=== PATIENT | female | born 1945 | race Caucasian/White ===

== ENCOUNTER → 2017-08-21 16:40 | Outpatient (CLI) | payer MEDICARE, OTHER, SELFPAY ==
[2017-08-08 13:12] VITALS: BP 138/70; BMI 26.5
--- NOTE | 2017-08-21 16:49 | CT_ITS ---
STUDY: CT ABDOMEN AND PELVIS WITH CONTRAST REASON FOR EXAM: Female, 71 years old. Left lower quadrant pain and diarrhea. The patient has a history of breast cancer. RADIATION DOSAGE (If Supplied By Facility): CTDIvol = ( 15.06 ) mGy, DLP = ( 905.72 ) mGycm TECHNIQUE: Transaxial images were obtained from the dome of the diaphragm to the symphysis pubis with oral contrast. 100ML ml of Isovue 300 contrast was administered. Sagittal and coronal images were reconstructed. Individualized dose optimization techniques were used for this CT. COMPARISON: None. FINDINGS: Minimal increased markings in the right middle lobe suggestive of scarring. 1 cm bulla is seen in the right middle lobe. The visualized portions of the heart are within normal limits. Minimally dilated intrahepatic biliary ducts. I suspect tiny gallstones along the dependent portion of the gallbladder lumen. Correlation with ultrasound is recommended. Normal gallbladder and extrahepatic biliary system. Normal spleen. Normal pancreas. Normal bilateral adrenal glands. Normal right kidney. Normal left kidney. There is a small hiatal hernia. Normal small intestine. There are multiple colonic diverticula consistent with diverticulosis. The appendix is visualized and appears normal. Normal abdominal aorta. Normal inferior vena cava. Normal retroperitoneum. Normal urinary bladder. Normal abdominal wall. Inhomogeneous appearance of several lumbar vertebrae. Questionable tiny lucencies in the iliac bones bilaterally. Correlation with a bone scan is recommended. CT/Abdomen/Pelvis WITH Contrast IMPRESSION: Questionable tiny gallstones. Sigmoid diverticulosis. Inhomogeneous appearance of the lumbar vertebrae as well as the iliac bones. Correlation with a bone scan is recommended. Electronically Signed: Alexandre Simeon MD at 12:43 EST Tel [phone], Service support ,
== END ==
PROVIDERS: Family Provider Family Medicine; PCP Family Medicine; Visit Provider Nurse Practitioner Family
DX: R10.32 Left lower quadrant pain (principal); R19.7 Diarrhea, unspecified; Z85.3 Personal history of malignant neoplasm of breast
CPT/HCPCS: 74177; Q9967

== ENCOUNTER → 2017-08-29 08:27 | Outpatient (CLI) | payer MEDICARE, OTHER, SELFPAY ==
--- NOTE | 2017-08-29 08:29 | NM_ITS ---
CLINICAL: 71-year-old female with reported history of carcinoma of the breast. WHOLE BODY 99m Tc MDP RADIONUCLIDE BONE SCINTIGRAPHY COMPARISON: None available FINDINGS: Following the intravenous administration of 26.2 mCi of 99m Tc MDP, whole body bone images reveal: 1. Increased radiopharmaceutical concentration is identified in the acromioclavicular compartments of both shoulders, the patellofemoral compartments of both knees, medial tibial-femoral compartment of the left knee, dorsal medial compartment of the left ankle, lateral compartments of the right-left ankles, the midfoot bilaterally. 2. The remaining skeletal structures are scintigraphically unremarkable with normal-appearing renal images and urinary bladder activity identified. NM/Bone Scan Whole Body IMPRESSION: 1. The increased radiopharmaceutical concentration identified in the bilateral shoulder and knee articulations, right-left ankles, the midfoot bilaterally is most consistent with degenerative arthritis. 2. There is no definitive typical scintigraphic evidence of skeletal metastatic disease on the current examination. Electronically Signed: Rishabh Max DO at 10:03 EST Tel , Service support ,
== END ==
PROVIDERS: Family Provider Family Medicine; PCP Family Medicine; Visit Provider Internal Medicine Medical Oncology
DX: R93.7 Abnormal findings on diagnostic imaging of other parts of musculoskeletal system (principal)
CPT/HCPCS: 78306

== ENCOUNTER → 2018-06-12 15:35 | Outpatient (CLI) | payer MEDICARE, OTHER, SELFPAY ==
[2018-06-04 09:51] VITALS: BMI 27.7
--- NOTE | 2018-06-12 15:41 | ECHODONC_ITS ---
Reason For Study: DYSPNEA Procedure This was a 2D Doppler, Color Flow transthoracic echocardiogram. Myocardial strain analysis was performed in this exam to aid in the assessment of cardiac function. The exam was of adequate technical quality. Exam performed in department. Left Ventricle Normal LV size. Left ventricular systolic function is normal. The estimated ejection fraction is 60 %. The global longitudinal strain = -21 % (normal). No evidence for diastolic dysfunction. No regional wall motion abnormalities noted. Right Ventricle Normal RV size. Normal systolic function. Atria The left atrium is mildly enlarged. Normal right atrium. No doppler evidence for ASD. Mitral Valve There is no mitral annular calcification. Mild diffuse mitral valve thickening. Mild mitral valve prolapse. Mild-Moderate (1-2+) mitral valve insufficiency. Tricuspid Valve Normal tricuspid valve. Mild tricuspid valve insufficiency. Right ventricular systolic pressure estimated to be 29 mmHg. Aortic Valve Trisinus/trileaflet aortic valve. Normal aortic valve. Trivial aortic valve insufficiency. Pulmonic Valve The pulmonic valve is not well visualized. Mild (1+) pulmonic valve insufficiency. Great Vessels Normal sized aortic root. Pericardium/Pleural No pericardial effusion. MMode/2D Measurements & Calculations LVIDd: 4.9 cm IVSd: 0.81 cm Ao root diam: 3.4 cm LVIDs: 3.3 cm LVPWd: 0.80 cm RVDd: 3.3 cm FS: 32.2 % LAV(MOD-bp): 62.6 ml LA A4 area: 21.9 cm2 LA dimension(2D): 3.8 cm LAV(MOD-bp) Indexed: 31.3 ml/m2 LAV(MOD-sp2): 60.1 ml LAV(MOD-sp4): 63.0 ml RA A4 area: 15.3 cm2 Time Measurements MV dec time: 0.26 sec Doppler Measurements & Calculations MV E max lit: 69.3 cm/sec Lat Peak E' Lit: 9.9 cm/sec Med Peak E' Lit: 5.9 cm/sec MV A max lit: 77.1 cm/sec E/E' lat: 7.0 E/E' med: 11.7 MV E/A: 0.90 Ao V2 max: 159.6 cm/sec LV V1 max: 81.3 cm/sec PA V2 max: 94.8 cm/sec Ao max P.2 mmHg LV V1 max P.6 mmHg TR max lit: 252.8 cm/sec TR max P.8 mmHg Interpretation Summary Left ventricular systolic function is normal. The estimated ejection fraction is 60 %. The global longitudinal strain = -21 % (normal). The left atrium is mildly enlarged. Mild diffuse mitral valve thickening. Mild mitral valve prolapse. Mild-Moderate (1-2+) mitral valve insufficiency. Mild tricuspid valve insufficiency. Trivial aortic valve insufficiency. Mild (1+) pulmonic valve insufficiency. Right ventricular systolic pressure estimated to be 29 mmHg. No evidence for diastolic dysfunction. Ordering Physician: Chela Salgado Referring Physician: MALLORIE GILLIS Performed By: Letty Osuna, JOSÉ MIGUEL, RVT
--- OUTSIDE RECORDS SUMMARY | 2018-07-29 22:58 | XMS RPT_ITS ---
:1945 Author Organization OHIP Support Name Relationship Address Phone DENILSON MOSES Unavailable [address] + [place] [address] R Unavailable Unavailable Unavailable BAHAIDENILSON Unavailable [address] + [place] [address] R Unavailable Unavailable Unavailable DENILSON MOSES Unavailable [address] + [place] [address] R Unavailable Unavailable Unavailable DENILSON MOSES Unavailable [address] + [place] [address] R Unavailable Unavailable Unavailable DENILSON MOSES Unavailable [address] + [place] [address] R Unavailable Unavailable Unavailable DENILSON MOSES Unavailable [address] + [place] [address] R Unavailable Unavailable Unavailable DENILSON MOSES Unavailable [address] + [place] [address] R Unavailable Unavailable Unavailable DENILSON MOSES Unavailable [address] + [place] [address] R Unavailable Unavailable Unavailable DENILSON MOSES Unavailable [address] + [place] [address] R Unavailable Unavailable Unavailable DENILSON MOSES Unavailable [address] + [place] [address] R Unavailable Unavailable Unavailable DENILSON MOSES Unavailable [address] + [place] [address] R Unavailable Unavailable Unavailable DENILSON MOSES Unavailable [address] + [place] [address] R Unavailable Unavailable Unavailable DENILSON MOSES Unavailable [address] + [place] [address] DENILSON MOSES Unavailable [address] + [place] [address] DENILSON MOSES Unavailable [address] + [place] [address] DENILSON MOSES Unavailable [address] + [place] [address] DENILSON MOSES Unavailable [address] + [place] [address] R Unavailable Unavailable Unavailable DENILSON MOSES Unavailable [address] + [place] [address] R Unavailable Unavailable Unavailable DENILSON MOSES Unavailable [address] + [place] [address] R Unavailable Unavailable Unavailable DENILSON MOSES Unavailable [address] + [place] [address] R Unavailable Unavailable Unavailable DENILSON MOSES Unavailable [address] + [place] [address] R Unavailable Unavailable Unavailable DENILSON MOSES Unavailable [address] + [place] [address] R Unavailable Unavailable Unavailable Care Team Providers Name Role Phone CHELA SUAREZ CNP Attending Unavailable KRISTIE DO, SAEID D Primary Care Unavailable KRISTIE DO, SAEID D Attending Unavailable KRISTIE DO, SAEID D Primary Care Unavailable Damian, Chela Attending Unavailable Damian, Chela Referring Unavailable Wann, Saeid Primary Care Unavailable PraEber menjivar Attending Unavailable Prah Eber Referring Unavailable Kristie, Saeid Primary Care Unavailable Phi Hidalgo Attending Unavailable Wann, Saeid Referring Unavailable PraEber menjivar Attending Unavailable Kristie, Saeid Referring Unavailable Wann, Saeid Primary Care Unavailable Eber Conn Consulting Unavailable Damian, Chela Attending Unavailable Kristie, Saeid Referring Unavailable Kristie, Saeid Primary Care Unavailable PraEber menjivar Consulting Unavailable Damian, Chela Attending Unavailable Wann, Saeid Referring Unavailable Wann, Saeid Primary Care Unavailable PraEber menjivar Consulting Unavailable Damian, Chela Attending Unavailable Damian, Chela Referring Unavailable Kristie, Saeid Primary Care Unavailable Damian, Chela Attending Unavailable Wann, Saeid Referring Unavailable Wann, Saeid Primary Care Unavailable PrahEber Consulting Unavailable Phi Hidalgo Attending Unavailable Phi Hidalgo Referring Unavailable Wann, Saeid Primary Care Unavailable Phi Hidalgo Attending Unavailable Phi Hidalgo Referring Unavailable Wann, Saeid Primary Care Unavailable Damian, Chela Attending Unavailable Kristie, Saeid Primary Care Unavailable PraEber menjivar Consulting Unavailable Prah, Eber Attending Unavailable Saeid Flowers Primary Care Unavailable Saeid Flowers Referring Unavailable Josseline Case Attending Unavailable Saeid Flowers Referring Unavailable Janes Sinha Attending Unavailable Damian, Chela Referring Unavailable Lisbeth, Grimes Attending Unavailable Damian, Chela Referring Unavailable EvieJosseline arredondo Attending Unavailable Saeid Flowers Referring Unavailable Prah, Eber Attending Unavailable Kristie, Saeid Primary Care Unavailable Senia, Eber Consulting Unavailable Damian, Chela Attending Unavailable Damian, Chela Referring Unavailable Kristie, Saeid Primary Care Unavailable PROBLEMS PROBLEMS DATE TYPE CONDITION / CODE ATTENDING STATUS SOURCE 07/10/2018 Unknown R06.09 - Other forms Phi Hidalgo Active [facility] of dyspnea / Community R06.09(ICD-10) Hospital Repository 07/10/2018 Unknown I34.0 - Nonrheumatic Phi Hidalgo Active [facility] mitral (valve) Community insufficiency / Hospital I34.0(ICD-10) Repository 07/10/2018 Unknown I36.1 - Nonrheumatic Phi Hidalgo Active [facility] tricuspid (valve) Community insufficiency / Hospital I36.1(ICD-10) Repository 07/10/2018 Unknown I37.1 - Nonrheumatic [place] Active [facility] pulmonary valve [facility] insufficiency / Hospital I37.1(ICD-10) Repository 07/10/2018 Unknown R93.1 - Abnormal Phi Hidalgo Active [facility] findings on diagnostic [facility] imaging of heart and Hospital coronary circulation / Repository R93.1(ICD-10) 07/10/2018 Unknown E78.5 - Phi Hidalgo Active [facility] Hyperlipidemia, Community unspecified / Hospital E78.5(ICD-10) Repository 06/18/2018 Unknown C50.411 - Malignant Damian, Active [facility] neoplasm of [place] Community upper-outer quadrant Hospital of right female breast Repository / C50.411(ICD-10) 06/25/2018 Unknown R00.1 - Bradycardia, Lisbeth, Grimes Active [facility] unspecified / Community R00.1(ICD-10) Hospital Repository 06/25/2018 Unknown R94.31 - Abnormal Ilsbeth, Felix Active [facility] electrocardiogram Community [ECG] [EKG] / Hospital R94.31(ICD-10) Repository 07/04/2018 Unknown Z79.899 - Other long [place], Active [facility] term (current) drug Janes Community therapy / Hospital Z79.899(ICD-10) Repository 06/04/2018 Unknown C50.412 - Malignant Damian, Active [facility] neoplasm of [facility] upper-outer quadrant Hospital of left female breast Repository / C50.412(ICD-10) 06/04/2018 Unknown Z17.0 - Estrogen Damian, Active [facility] receptor positive [facility] status [ER+] / Hospital Z17.0(ICD-10) Repository 06/04/2018 Unknown M85.80 - Other Damian, Active [facility] specified disorders of [facility] bone density and Hospital structure, unspecified Repository site / M85.80(ICD-10) 03/13/2018 Unknown Z85.3 - Personal Damian, Active [facility] history of malignant [facility] neoplasm of breast / Hospital Z85.3(ICD-10) Repository 03/13/2018 Unknown Z12.31 - Encounter for Damian, Active [facility] screening mammogram [facility] for malignant neoplasm Hospital of breast / Repository Z12.31(ICD-10) 03/13/2018 Unknown Z13.820 - Encounter Damian, Active [facility] for screening for [facility] osteoporosis / Hospital Z13.820(ICD-10) Repository 08/21/2017 Unknown R10.32 - Left lower Damian, Active [facility] quadrant pain / [place] Community R10.32(ICD-10) Hospital Repository 08/21/2017 Unknown R19.7 - Diarrhea, Damian, Active [facility] unspecified / [place] Community R19.7(ICD-10) Hospital Repository 08/08/2017 Unknown 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 [address] [place] [address] OFFICE VISIT Date of Service: 07/10/18 MR#: [id number] Acct: [id number] Name: FABI MOSES Rep #: [id number] : 1945 Provider: Phi Hidalgo MD Age/Sex: 72/F Location: [facility] Status: Signed HPI [facility] Chief Complaint: Review EKG and echo Details: FABI MOSES, is a 72 F who presents to the office today for Intake Vital Signs07/10/18 Body Mass Index (BMI) 27.8 07/10/18 Height 5 ft 8.5 in 07/10/18 Weight: 185 lb 07/10/18 Body Mass Index (BMI) 27.7 07/10/18 Blood Pressure 122/70 H 07/10/18 Blood Pressure Location Lt brachial Intake Visit Reasons: AYALA, ABN EKG AND ECHO ([facility]) Computer Architect Required: No Accompanied by: Is patient in pain?: No Allergies No Known Allergies Allergy (Verified 07/10/18 14:04) Medications Atorvastatin Calcium [Lipitor] 10 mg PO QHS 02/13/15 [History Confirmed 07/10/18] Aspirin 81 mg PO DAILY 09/26/16 [History Confirmed 07/10/18] Cod Liver Oil 5 ml PO DAILY 09/26/16 [History Confirmed 07/10/18] Anastrozole [Arimidex] 1 mg PO DAILY #90 tab 08/08/17 [Rx Confirmed 07/10/18] Multivit-Min/Iron/Folic/Lutein [Centrum Silver Women Tablet] 1 ea PO DAILY 08/08/17 [History Confirmed 07/10/18] halcinonide-emollient 0.1 % topical cream % TOPICAL 06/21/18 [History Confirmed 07/10/18] [facility] Medical History Hyperlipidemia (Chronic) Nonrheumatic tricuspid (valve) insufficiency (Chronic) Pulmonic valve insufficiency (Chronic) Nonrheumatic mitral (valve) insufficiency (Chronic) History of right breast cancer (Chronic) Exertional dyspnea (Acute) Abnormal echocardiogram (Acute) Personal history of malignant neoplasm of breast (Chronic) 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, estrogen receptor positive (Chronic) Hyperlipidemia (Acute) Psoriasis (Acute) Surgical History History of lumpectomy of right breast (Acute 2014) History of tonsillectomy (Acute) Family History Father Heart disease Sister Hypertension Social History number of children: 1 current occupational status: unemployed Smoking Status: Never smoker alcohol intake: current alcohol intake frequency: holidays/special occasions only substance use type: does not use seatbelt use: always do you feel safe at home: Yes 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 Conn); negative for fatigue, weakness, body ache, fever(s), headache(s), chills, frequent falls, night sweats, daytime sleepiness, difficulty sleeping, excessive sweating, weight gain, weight loss, increased appetite, poor appetite or anorexia Eyes Eyes: Negative for blind spots, loss of peripheral vision, transient loss of vision, blurry vision, change in vision, double vision, floaters, tunnel vision or other ENT ENT: Negative for headache(s), dizziness, hearing loss, tinnitus, Nosebleed/epistaxis, balance problems, post nasal drip, lip swelling, tongue swelling, bleeding gums, hoarseness, neck pain, dry mouth or other Cardio Chest Pain: Yes (Mid shoulder blade pain, dull ache. Not related to activity. Comes and goes) Frequency: other (varies, a couple days in a row to once a week.) Character: dull Onset: other (spontaneous) Location: other (middle of your back) Duration: hours Exacerbation: other (spontaneous) Relieving: other (spontaneous) Recurrence: other (spontaneous) Palpitations: Yes (hx of afib, does feel occasional skipping) feels like its: skipping Edema: None Muscle aches with walking: None Resp Respiratory: Positive for SOB with activity and Cough (dry cough); negative for SOB at rest, SOB orthopnea\SOB lying down, Coughing up blood/hemoptysis, chest congestion, pain on inspiration, snoring, stridor, wheezing, crackles, paroxysmal nocturnal dyspnea or other GI GI: Negative nausea, vomiting, heartburn, constipation, belching, bloating, cramping, vomiting blood/hematemesis, bright, red blood in stools, black,tarry stools, loose stools, Difficulty Swallowing or other : Negative for hematuria, frequent nighttime urination/ nocturia, erectile dysfunction or abnormal vaginal bleeding Musc Musc: Negative for balance problems, muscle aches/ myalgia, muscle weakness or joint pain Skin Skin: Negative redness, non-healing lesions, rash, unusual bruising, skin ulcer, wounds, jaundice or other Neuro Neuro: Negative for weakness, headache(s), frequent falls, blurry vision, double vision, dizziness, lightheadedness, near syncope, syncope, orthostatic symptoms, confusion, memory loss, restless legs, vertigo, seizures, lack of coordination or other Shane Hematologic/Lymphatic: Negative for easy bleeding, easy bruising, enlarged lymph nodes or other Endo Endo: Negative for fatigue, excessive sweating, cold intolerance, heat intolerance, flushing, increased thirst/drinking, increased hunger, hair loss, hair growth or other Psych Psych: Negative for anxiety, depression, thoughts of harming anyone, thoughts of harming yourself, visual hallucinations, panic attacks or audible hallucinations Allergy Allergy/Immunology: Negative for lip swelling, Negative for tongue swelling, Negative for rash, Negative for throat swelling, Negative for hives Assessment AND Plan Orders Orders: Plan Detail Follow Up +6M (Rocky) Coding Level of Care Code Off vis,new,level 4 Coding Level of Care Code Off vis,new,level 4 Supplemental Info Supplemental Information Labs LDL Cholesterol 87 mg/dL (0-130) 07/11/18 HDL Cholesterol 67 mg/dL (40-) 07/11/18 Triglycerides 104 mg/dL (-199) 07/11/18 VLDL Cholesterol 21 mg/dL (5-40) 07/11/18 Diagnostics Electrocardiogram 06/14/18 Echocardiogram 06/12/18 07/13/18 1500 <Electronically signed by Phi Hidalgo MD> Date Phi Hidalgo MD [facility] Signature: Date (if applicable) CC: Saeid Flowers DO LIVER PROFILE Collected: 07/11/2018 Status: F Source: [facility] 9:12 AM [facility] REPOSITORY TYPE CODE TESTS RESULT OUT OF RANGE REFERENCE UNITS LAB L501.1500 6.4-8.2 g/dL Normal T PROT 7.4 LAB L501.1800 3.2-5.0 g/dL Normal ALB 3.8 LAB L501.1950 2.2-4.2 g/dL Normal GLOB 3.6 LAB L501.4100 15-37 U/L Normal AST 17 LAB L501.4305 45-117 U/L Normal ALK P 76 LAB L501.4405 13-56 U/L Normal ALT 20 LAB L501.4600 0.20-1.00 mg/dL Normal T BILI 0.50 LAB L501.4700 0.00-0.30 mg/dL Normal D BILI 0.15 Performed By: #### L500.3400, L500.4100 #### [facility] [address] [place], [place], [id number] LIPID PROFILE Collected: 07/11/2018 Status: F Source: [facility] 9:12 AM [facility] REPOSITORY TYPE CODE TESTS RESULT OUT OF RANGE REFERENCE UNITS LAB L501.4900 200 mg/dL Normal CHOL 175 Result Comment: <200 mg/dL Desirable 200-240 mg/dL Borderline >240 mg/dL High Risk LAB L501.5000 mg/dL Normal TRIG 104 Result Comment: The drugs N-Acetylcysteine and Metamizole may falsely depress this assay. Serum Triglycerides Reference Interval Normal <150 mg/dL Borderline high 150 - 199 mg/dL High 200 - 499 mg/dL Very High > or = 500 mg/dL LAB L501.6400 mg/dL Normal HDL 67 Result Comment: The drugs N-Acetylcysteine and Metamizole may falsely depress this assay. Reference Range HDL <40 mg/dL Low HDL Cholesterol HDL >or= 60 mg/dL High HDL Cholesterol LAB L501.6500 0-130 mg/dL Normal LDL 87 LAB L501.6600 5-40 mg/dL Normal VLDL 21 Performed By: #### L500.3400, L500.4100 #### [facility] [address] [place], [place], [id number] CARDIOLOGY VISIT Observed: 07/10/2018 Status: F Source: [facility] 2[facility] PM [facility] [address] [place] [address] OFFICE VISIT Date of Service: 07/10/18 MR#: [id number] Acct: [id number] Name: FABI MOSES Rep #: [id number] : 1945 Provider: Phi Hidalgo MD Age/Sex: 72/F Location: [facility] Status: Signed HPI HPI Chief Complaint: Review EKG and echo Details: FABI MOSES, is a 72 F with a history of hyperlipidemia, non-smoker lifelong, mitral valve prolapse with subsequent mitral regurgitation, status post right-sided breast cancer in 2015 status post lumpectomy in 2014 followed by chemotherapy and x-ray therapy in 2016. She is a lifelong nondiabetic, and no previous catheterization. She has a sister with hypertension, but no other siblings with coronary disease. After her chemotherapy in 2016, the patient noted progressively worsening dyspnea on exertion and shortness of breath. She is to be able to exercise without difficulty and now has difficulty walking 2 flights of stairs. She denies any associated chest pain, angina, lightheadedness or dizziness. On 06/12/18 the patient underwent a 2D echo with Doppler which demonstrated normal LV size and function with an EF of 60%, mild mitral valve prolapse with mild to moderate mitral regurgitation and RVSP of approximately 34 mmHg. Her most recent stress/MPI took place on in which she went 9 minutes 30 seconds and had no evidence of ischemia by nuclear imaging. In addition she has a history of paroxysmal atrial fibrillation but is not on anticoagulation therapy. She cannot recall many times a month she develops palpitations but appears to be caffeine sensitive. In our office today her blood pressure is 122/70, pulse is 60 and regular. Her physical exam demonstrates clear lungs bilaterally, regular rate and rhythm, normal S2, no S3 or S4, with 2/6 holosystolic murmur best heard in the lower left sternal border. No diastolic murmurs noted. EKG dated 06/14/18 shows sinus bradycardia, left anterior hemiblock, low voltage throughout the precordium. Intake Vital Signs07/10/18 Height 5 ft 8.5 in 07/10/18 Weight: 185 lb 07/10/18 Body Mass Index (BMI) 27.7 07/10/18 Blood Pressure 122/70 H 07/10/18 Blood Pressure Location Lt brachial Intake Visit Reasons: AYALA, ABN EKG AND ECHO ([facility]) Allergies No Known Allergies Allergy (Verified 07/10/18 14:04) Medications Atorvastatin Calcium [Lipitor] 10 mg PO QHS 02/13/15 [History Confirmed 07/10/18] Aspirin 81 mg PO DAILY 09/26/16 [History Confirmed 07/10/18] Cod Liver Oil 5 ml PO DAILY 09/26/16 [History Confirmed 07/10/18] Anastrozole [Arimidex] 1 mg PO DAILY #90 tab 08/08/17 [Rx Confirmed 07/10/18] Multivit-Min/Iron/Folic/Lutein [Centrum Silver Women Tablet] 1 ea PO DAILY 08/08/17 [History Confirmed 07/10/18] halcinonide-emollient 0.1 % topical cream % TOPICAL 06/21/18 [History Confirmed 07/10/18] PFS Medical History Hyperlipidemia (Chronic) Nonrheumatic tricuspid (valve) insufficiency (Chronic) Pulmonic valve insufficiency (Chronic) Nonrheumatic mitral (valve) insufficiency (Chronic) History of right breast cancer (Chronic) Exertional dyspnea (Acute) Abnormal echocardiogram (Acute) Personal history of malignant neoplasm of breast (Chronic) 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, estrogen receptor positive (Chronic) Hyperlipidemia (Acute) Psoriasis (Acute) Surgical History History of lumpectomy of right breast (Acute 2014) History of tonsillectomy (Acute) Family History Father Heart disease Sister Hypertension Social History number of children: 1 current occupational status: unemployed Smoking Status: Never smoker alcohol intake: current alcohol intake frequency: holidays/special occasions only substance use type: does not use seatbelt use: always do you feel safe at home: Yes 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 Exertional dyspnea R06.09 Plan 1. Dyspnea on exertion: I am concerned the patient has worsening dyspnea on exertion particularly after her chemotherapy and her x-ray therapy to her right breast. Her LV function appears to be normal and echocardiogram which does have mild to moderate mitral regurgitation which may be worse than advertised on a transthoracic echo. In addition I am concerned that she may have pericardial constrictive physiology given her x-ray therapy to her right breast area although this is on a less likely lower scale. To help evaluate this I recommend that she undergo a treadmill echocardiogram to determine her exercise capacity, evaluate for ischemia, and with particular attention to peak MR obtained during maximum exercise. If this is grossly abnormal for ischemia, the patient may require a left and right heart diagnostic coronary angiogram to evaluate her pulmonary pressures and pericardial constrictive physiology. In addition, this will evaluate her chronotropic response to exercise as she is bradycardic on no antihypertensive or beta-adrienne medications. If the patient has chronotropic incompetence, she may require a pacemaker. In the meantime she will continue baby aspirin. 2. Hyperlipidemia: Repeat lipid profile. Continue Lipitor. 3. Return office in 6-months. This note was generated using a voice recognition system and there may be incorrect words, spelling or punctuation that were not noted when reviewing the office note prior to saving. Orders Orders: 2. Hyperlipidemia E78.5 Orders Orders: Plan Detail Other Orders Orders: Follow Up +6M (Rocky) Coding Level of Care Code Off vis,new,level 4 Diagnoses Exertional dyspnea R06.09 Hyperlipidemia E78.5 Coding Level of Care Code Off vis,new,level 4 Diagnoses Exertional dyspnea R06.09 Hyperlipidemia E78.5 Supplemental Info Supplemental Information Labs LDL Cholesterol 111 mg/dL (0-130) 11/17/15 HDL Cholesterol 39 mg/dL (40-) L 11/17/15 Triglycerides 97 mg/dL (-199) 11/17/15 VLDL Cholesterol 19 mg/dL (5-40) 11/17/15 Diagnostics Electrocardiogram 06/14/18 Echocardiogram 06/12/18 Chest X-Ray 07/14/15 07/10/18 0677 <Electronically signed by Phi Hidalgo MD> Date Phi Hidalgo MD Cosigner Signature: Date (if applicable) CC: CARDIOLOGY VISIT Observed: 07/10/2018 Status: F Source: [facility] REPORT 1:53 PM [facility] REPOSITORY [facility] [address] [place] [address] OFFICE VISIT Date of Service: 07/10/18 MR#: [id number] Acct: [id number] Name: FABI MOSES Rep #: [id number] : 1945 Provider: Phi Hidalgo MD Age/Sex: 72/F Location: [facility] Status: Signed HPI HPI Chief Complaint: Review EKG and echo Details: FABI MOSES, is a 72 F who presents to the office today for Intake Vital Signs07/10/18 Body Mass Index (BMI) 27.8 Intake Visit Reasons: AYALA, ABN EKG AND ECHO ([facility]) Allergies No Known Allergies Allergy (Verified 07/09/18 14:09) Medications Atorvastatin Calcium [Lipitor] 10 mg PO QHS 02/13/15 [History Confirmed 07/09/18] Aspirin 81 mg PO DAILY 09/26/16 [History Confirmed 07/09/18] Cod Liver Oil 5 ml PO DAILY 09/26/16 [History Confirmed 07/09/18] Anastrozole [Arimidex] 1 mg PO DAILY #90 tab 08/08/17 [Rx Confirmed 07/09/18] Multivit-Min/Iron/Folic/Lutein [Centrum Silver Women Tablet] 1 ea PO DAILY 08/08/17 [History Confirmed 07/09/18] halcinonide-emollient 0.1 % topical cream % TOPICAL 06/21/18 [History Confirmed 07/09/18] PFSH Medical History Nonrheumatic tricuspid (valve) insufficiency (Chronic) Pulmonic valve insufficiency (Chronic) Nonrheumatic mitral (valve) insufficiency (Chronic) History of right breast cancer (Chronic) Exertional dyspnea (Acute) Abnormal echocardiogram (Acute) Personal history of malignant neoplasm of breast (Chronic) 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, estrogen receptor positive (Chronic) Hyperlipidemia (Acute) Psoriasis (Acute) Surgical History History of lumpectomy of right breast (Acute) History of tonsillectomy (Acute) Family History Father Heart disease Sister Hypertension Social History number of children: 1 current occupational status: unemployed Smoking Status: Never smoker alcohol intake: current alcohol intake frequency: holidays/special occasions only substance use type: does not use seatbelt use: always do you feel safe at home: Yes 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 Const Const: Negative for fatigue, weakness, body ache, fever(s), headache(s), chills, frequent falls, night sweats, daytime sleepiness, difficulty sleeping, excessive sweating, weight gain, weight loss, increased appetite, poor appetite, anorexia or other Eyes Eyes: Negative for blind spots, loss of peripheral vision, transient loss of vision, blurry vision, change in vision, double vision, floaters, tunnel vision or other ENT ENT: Negative for headache(s), dizziness, hearing loss, tinnitus, Nosebleed/epistaxis, balance problems, post nasal drip, lip swelling, tongue swelling, bleeding gums, hoarseness, neck pain, dry mouth or other Cardio Chest Pain: No Resp Respiratory: Negative for SOB with activity, SOB at rest, SOB orthopnea\SOB lying down, Coughing up blood/hemoptysis, chest congestion, pain on inspiration, snoring, stridor, wheezing, crackles, paroxysmal nocturnal dyspnea or other GI GI: Negative nausea, vomiting, heartburn, constipation, belching, bloating, cramping, vomiting blood/hematemesis, bright, red blood in stools, black,tarry stools, loose stools, Difficulty Swallowing or other : Negative for hematuria, frequent nighttime urination/ nocturia, erectile dysfunction or abnormal vaginal bleeding Musc Musc: Negative for balance problems, muscle aches/ myalgia, muscle weakness or joint pain Skin Skin: Negative redness, non-healing lesions, rash, unusual bruising, skin ulcer, wounds, jaundice or other Neuro Neuro: Negative for weakness, headache(s), frequent falls, blurry vision, double vision, dizziness, lightheadedness, near syncope, syncope, orthostatic symptoms, confusion, memory loss, restless legs, vertigo, seizures, lack of coordination or other Shane Hematologic/Lymphatic: Negative for easy bleeding, easy bruising, enlarged lymph nodes or other Endo Endo: Negative for fatigue, excessive sweating, cold intolerance, heat intolerance, flushing, increased thirst/drinking, increased hunger, hair loss, hair growth or other Psych Psych: Negative for anxiety, depression, thoughts of harming anyone, thoughts of harming yourself, visual hallucinations, panic attacks or audible hallucinations Allergy Allergy/Immunology: Negative for lip swelling, Negative for tongue swelling, Negative for rash, Negative for throat swelling, Negative for hives Coding Level of Care Code Off vis,new,level 3 Coding Level of Care Code Off vis,new,level 3 Supplemental Info Supplemental Information Diagnostics Electrocardiogram 06/14/18 Echocardiogram 06/12/18 07/10/18 1353 <Electronically signed by Phi Hidalgo MD> Date Phi Hidalgo MD Cosign Signature: Date (if applicable) CC: Saeid Flowers DO DATA COMPILER OFFICE VISIT Observed: 07/09/2018 Status: F Source: [facility] RE[facility] 2:25 PM [facility] [place] REPOSITORY [facility] [address] [place] [address] OFFICE VISIT Date of Service: 07/09/18 MR#: [id number] Acct: [id number] Name: FABI MOSES Rep #: [id number] : 1945 Provider: CHRIS Case Age/Sex: 72/F Location: [facility] [place] Status: Signed Intake Vital Signs07/09/18 Height 5 ft 9 in 07/09/18 Weight: 186 lb 07/09/18 Body Mass Index (BMI) 27.4 07/09/18 Blood Pressure 146/96 H Intake Visit Reasons: 2-3 week follow up per Computer Architect Required: No Is patient in pain?: No Allergies No Known Allergies Allergy (Verified 07/09/18 14:09) Medications Atorvastatin Calcium [Lipitor] 10 mg PO QHS 02/13/15 [History Confirmed 07/09/18] Aspirin 81 mg PO DAILY 09/26/16 [History Confirmed 07/09/18] Cod Liver Oil 5 ml PO DAILY 09/26/16 [History Confirmed 07/09/18] Anastrozole [Arimidex] 1 mg PO DAILY #90 tab 08/08/17 [Rx Confirmed 07/09/18] Multivit-Min/Iron/Folic/Lutein [Centrum Silver Women Tablet] 1 ea PO DAILY 08/08/17 [History Confirmed 07/09/18] halcinonide-emollient 0.1 % topical cream % TOPICAL 06/21/18 [History Confirmed 07/09/18] Is last menstrual period known: No Post menopausal: Yes Patient : No : No [facility] Medical History Nonrheumatic tricuspid (valve) insufficiency (Chronic) Pulmonic valve insufficiency (Chronic) Nonrheumatic mitral (valve) insufficiency (Chronic) History of right breast cancer (Chronic) Exertional dyspnea (Acute) Abnormal echocardiogram (Acute) Personal history of malignant neoplasm of breast (Chronic) 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, estrogen receptor positive (Chronic) Heart disease (Acute) Hyperlipidemia (Acute) Psoriasis (Acute) Surgical History History of lumpectomy of right breast (Acute) History of tonsillectomy (Acute) Family History Father Heart disease Sister Hypertension Social History number of children: 1 current occupational status: unemployed Smoking Status: Never smoker alcohol intake: current alcohol intake frequency: holidays/special occasions only substance use type: does not use seatbelt use: always do you feel safe at home: Yes 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 States not sure if improved as went to [place] for one week and forgot medication. She denies itching. Noted elevated BP and sees cardiology tomorrow. Denies headache, vision changes Pregancy History 1 Elective abortions Hx Para 1 Spontaneous abortions Past Pregnancies Del. DatName GA/WeeksOutcome Route [facility] Goldberg LgAnesthesDel LocaProviderFOB e ht en tn Unknown Letty 1977 Exam Const General: cooperative, no acute distress Nutritional Appearance: well nourished Orientation: oriented x3 GI Palpation: soft, nontender External Female Exam: other Speculum Exam - Vagina: atrophic vaginal mucosa, other (improved whitening at posterior introitus) Assessment AND Plan Problems 1. Lichen sclerosus L90.0 Plan Halog bid thin layer X 2 weeks, then daily X 2 weeks then prn. RTO prn, annual exams Coding Level of Care Code Off vis,est,level 3 Diagnoses Lichen sclerosus L90.0 07/09/18 1425 <Electronically signed by Josseline LION> Date Josseline LION Cosigner Signature: Date (if applicable) CC: DATA COMPILER OFFICE VISIT Observed: 06/21/2018 Status: F Source: [facility] REPORT 9:57 AM [facility] [place] REPOSIT[facility] [address] [place] [address]. [address] [place], [place] [id number] OFFICE VISIT Date of Service: 06/21/18 MR#: [id number] Acct: [id number] Name: FABI MOSES Rep #: [id number] : 1945 Provider: CHRIS Case Age/Sex: 72/F Location: [facility] [place] Status: Signed Intake Vital Signs06/21/18 Body Mass Index (BMI) 27.8 06/21/18 Height 5 ft 9 in 06/21/18 Weight: 186 lb 8 oz 06/21/18 Body Mass Index (BMI) 27.5 06/21/18 Blood Pressure 128/84 H Intake Visit Reasons: NEW Lichen Sclerosis Computer Architect Required: No Is patient in pain?: No Allergies No Known Allergies Allergy (Verified 06/21/18 08:52) Medications Atorvastatin Calcium [Lipitor] 10 mg PO QHS 02/13/15 [History Confirmed 06/21/18] Aspirin 81 mg PO DAILY 09/26/16 [History Confirmed 06/21/18] Cod Liver Oil 5 ml PO DAILY 09/26/16 [History Confirmed 06/21/18] Anastrozole [Arimidex] 1 mg PO DAILY #90 tab 08/08/17 [Rx Confirmed 06/21/18] Multivit-Min/Iron/Folic/Lutein [Centrum Silver Women Tablet] 1 ea PO DAILY 08/08/17 [History Confirmed 06/21/18] halcinonide-emollient 0.1 % topical cream % TOPICAL 06/21/18 [History Confirmed 06/21/18] Is last menstrual period known: No Post menopausal: No Patient : No : No PFSH Medical History Heart disease (Acute) Hyperlipidemia (Acute) Psoriasis (Acute) Surgical History History of lumpectomy of right breast (Acute) History of tonsillectomy (Acute) Family History Father Heart disease Sister Hypertension Social History number of children: 1 current occupational status: unemployed Smoking Status: Never smoker alcohol intake: current alcohol intake frequency: holidays/special occasions only substance use type: does not use seatbelt use: always do you feel safe at home: Yes 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 First diagnosed per calibration engineer several years ago on her breast then in vaginal area. She uses halog in vaseline prn. Pregancy History 1 Elective abortions Hx Para 1 Spontaneous abortions Past Pregnancies Del. DatName GA/WeeksOutcome Route [facility] JaswantgInkanu Goldberg LgAnesthesDel LocaProviderFOB e ht en ia tn Unknown Letty 1977 ROS Const Constitutional: Reports system reviewed and no additional complaints, except as docu GI GI: Denies abdominal pain or change in bowel habits Exam Const General: cooperative, no acute distress Nutritional Appearance: well nourished Orientation: oriented x3 External Female Exam: other (Silver whitening posterior introitus and clitoral walls. ) Speculum Exam - Vagina: atrophic vaginal mucosa Assessment AND Plan Problems 1. Lichen sclerosus L90.0 Plan Will use halog ointment bid X 2 weeks to affected area-discussed thin layer and rub in well RTO 2-3 weeks Medications New: Coding Level of Care Code Off vis,new,level 3 Diagnoses Lichen sclerosus L90.0 06/21/18 0957 <Electronically signed by Josseline LION> Date Josseline LION Cosigner Signature: Date (if applicable) CC: ONCOLOGY VISIT REPORT Observed: 06/18/2018 Status: F Source: [facility] 3:56 PM [facility] [place] REPOSIT[facility] [address] [place], [place] [address] [address] OFFICE VISIT Date of Service: 06/18/18 1053 MR#: [id number] Acct: [id number] Name: FABI MOSES Rep #: [id number] : 1945 From: Chela LION Age/Sex: 72/F Location: [facility] Status: Signed Subjective - Date of Service Date of Service:: 06/18/18 - Chief Complaint Review EKG and echo - History of Present Illness 72 y.o.woman found to have an abnormal mammogram. She had biopsy on 04/30/2015, which showed invasive ductal carcinoma, ER/CO positive, HER2 negative. She had right breast lumpectomy and sentinel lymph node biopsy on 05/19/2015. Tumor size was 8 mm. Lymph nodes 2/2 were negative. Oncotype DX was 25. The patient received 4 cycles of Taxotere/Cytoxan, finishing on 09/21/2015. She completed adjuvant radiation therapy on 11/19/2015 under the care of Dr. Garcia. Subsequently she began adjuvant Arimidex in 11/2015. She was found to have R sided abdominal tenderness. CT a/p on 08/21/2017 showed gallstones and inhomogenous appearance in the lumber spine so bone scan was requested. Bone scan obtained 08/29/17 showed no evidence of metastatic disease, + DJD. - Interval History The patient is presenting to clinic to review the results of EKG and echocardiogram which were obtained last week to address c/o exertional dyspnea. Denies any worsening of dyspnea, cough, CP, palpitations and swelling/pain of her extremities. States she was a patient of Dr. Sadler a long long time ago. Reports h/o a fib. Also states she is interested in Prolia injections but will be busy during the holiday and scheduled with her dental provider in August. - Past Medical/Social History Past Medical History Past Medical History: Heart disease,Hyperlipidemia Other Past Medical History: PSORIARIS Cancer: Breast cancer Past Surgical History Surgical: Lumpectomy,Tonsillectomy Family History Paternal Past Medical History: Heart disease Maternal Past Medical History: Unknown Social History Social History: No changes Smoking Status Never smoker Review of Systems Constitutional:: Denies: Fever, Sweats, Weight loss, Appetite change, Chills Cardiovascular:: Reports: Dyspnea on exertion. Denies: Chest pain, Palpitations, Orthopnea, PND, Shortness of breath Respiratory: Reports: Shortness of Breath. Denies: Cough, Hemoptysis, Wheezing Gastrointestinal:: Denies: Abdominal pain, Nausea, Vomiting, Diarrhea, Constipation, Melena, Hematochezia Genitourinary: Denies: Dysuria, Hematuria, 15, Flank pain Musculoskeletal:: Denies: Back pain, Myalgia, Arthralgia Skin: Denies: Rash, Skin Changes, Wounds Neurological:: Denies: Headache, Dizziness, Numbness, Tingling, Visual changes, Tinnitus, Hearing loss Psychiatric: Denies: Anxiety, Depression, Homicidal Ideations, Suicidal Ideations Vital Signs Height 5 ft 9 in Weight: 188 lb 3.2 oz Weight in Pounds 188.2 lbs Pulse Ox 100 - Physical Exam General: Alert, Oriented x3, No apparent distress HEENT: Atraumatic, Normocephalic, - - wears glasses Oropharynx:: Negative for: Dry mucosa, Ulcerated lesions Neck:: Supple, Trachea midline. Negative for: JVD, bilateral Cardiac:: Regular rate, Regular rhythm, Normal S1, Normal S2. Negative for: Murmur Lungs: Clear to auscultation, Excusion symmetrical. Negative for: Rhonchi, Wheezes Abdomen:: Bowel sounds x 4, Soft, Non-tender, Non-distended. Negative for: Hepatosplenomegaly Extremities:: Negative for: Cyanosis, Edema Neurological: Neuro grossly intact Skin:: Negative for: Lesions, Rash, Petechiae, Ecchymosis Psychiatric:: Appropriate affect, Euthymic Lymphatics:: Negative for: Cervical lymphadenopathy, Supraclavicular lymphadenopathy, Axillary lymphadenopathy Assessment and Plan 1. Invasive ductal carcinoma of the right breast, stage IA, on adjuvant Arimidex -She is otherwise not endorsing any signs or symptoms concerning for recurrent disease at the present time. Tolerating Arimidex well. She is advised to continue breast self exams monthly and promptly report any changes as well as to continue adjuvant Arimidex for a total of at minimum 5 years. 2. Osteopenia-DEXA scan obtained 05/21/2018 shows osteopenia in the lumbar spine. Given the context of current AI therapy, engaged in lengthy discussion regarding Prolia, indication, risks and benefits inclusive of hypocalcemia and osteonecrosis of the jaw. Patient elects Prolia. Patient to have dental evaluation in August and contact our office with dental clearance form. We will start prior auth process at that time. 3. Exertional dyspnea-in the absence of cough. EKG showed bradycardia and low voltage QRS. Echocardiogram showed multiple valve insufficiency, EF 60% and normal LV function. Given patient's reported history of A. fib and abnormal studies will refer back to Dr. Sinha. 4. Lichen sclerosis-per patient self-report diagnosed with lichen's sclerosis sometime ago. Was given topical steroid per PCP but has not undergone pelvic exam in several years. Referred to Dr. Franz to establish care. Return to clinic in 6 months, CBC CMP prior, sooner if issues arise. 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, estrogen receptor positive Status: Acute Qualifiers: Patient sex: female Qualified Code(s): C50.411 - Malignant neoplasm of upper-outer quadrant of right female breast; C50.412 - Malignant neoplasm of upper-outer quadrant of left female breast; Z17.0 - Estrogen receptor positive status [ER+] (2) Osteopenia Status: Acute Qualifiers: Osteopenia location: lumbar spine Qualified Code(s): M85.88 - Other specified disorders of bone density and structure, other site (3) Exertional dyspnea Status: Acute (4) Abnormal echocardiogram Status: Acute (5) Lichen sclerosus Status: Acute 06/18/18 8916 <Electronically signed by Chela LION> Date Chela LION Cosigner Signature: Date (if applicable) CC: 12 LEAD EKG W/ Observed: 06/15/2018 Status: F Source: [facility] RHYTHM STRIP 9:07 AM [facility] [place] REPOSITORY [facility] [address] [place] [address] 12 Lead EKG with Rhythm Strip 06/14/18 1453 MR#: [id number] Acct: [id number] Name: FABI MOSES Gerhard Rep #: [id number] : 1945 72 From: Felix Bob MD Attending Dr: Chela Salgado NP Status: REG CLI Ordering Dr: Chela Salgado Date: 06/14/18 Location: [facility] Sex: F C Admitted: Test Reason : SOB Blood Pressure : / mmHG Vent. Rate : 055 BPM Atrial Rate : 055 BPM P-R Int : 166 ms QRS Dur : 084 ms QT Int : 416 ms P-R-T Axes : 040 -35 015 degrees QTc Int : 397 ms Sinus bradycardia Left axis deviation Low voltage QRS Abnormal ECG Confirmed by FELIX BOB MD ([id number]), editor trade journal BRANT ALDANA ([id number]) on 06/15/2018 9:06:40 AM Referred By: Chela Salgado Confirmed By:FELIX BOB MD 06/15/18 09 Date Felix Bob MD CC: Saeid Flowers DO; Chela Salgado NP Signed ONC ECHOCARDIOGRAM Observed: 06/12/2018 Status: F Source: [facility] 5:48 PM [facility] [place] RE[facility] Cardi[facility] Services [address] [place] [id number] ONC Echo Complete 06/12/18 1553 MR#: [id number] Acct: [id number] Name: FABI MOSES Rep #: [id number] : 1945 72 From: Janes Sinha MD Attending Dr: Chela Salgado NP Status: REG CLI Ordering Dr: Chela Salgado EDITING INTERN-C Date: 06/12/18 Location: [facility] Sex: F C Admitted: Reason For Study: DYSPNEA Procedure This was a 2D Doppler, Color Flow transthoracic echocardiogram. Myocardial strain analysis was performed in this exam to aid in the assessment of cardiac function. The exam was of adequate technical quality. Exam performed in department. Left Ventricle Normal LV size. Left ventricular systolic function is normal. The estimated ejection fraction is 60 %. The global longitudinal strain = -21 % (normal). No evidence for diastolic dysfunction. No regional wall motion abnormalities noted. Right Ventricle Normal RV size. Normal systolic function. Atria The left atrium is mildly enlarged. Normal right atrium. No doppler evidence for ASD. Mitral Valve There is no mitral annular calcification. Mild diffuse mitral valve thickening. Mild mitral valve prolapse. Mild-Moderate (1-2+) mitral valve insufficiency. Tricuspid Valve Normal tricuspid valve. Mild tricuspid valve insufficiency. Right ventricular systolic pressure estimated to be 29 mmHg. Aortic Valve Trisinus/trileaflet aortic valve. Normal aortic valve. Trivial aortic valve insufficiency. Pulmonic Valve The pulmonic valve is not well visualized. Mild (1+) pulmonic valve insufficiency. Great Vessels Normal sized aortic root. Pericardium/Pleural No pericardial effusion. MMode/2D Measurements AND Calculations LVIDd: 4.9 cm IVSd: 0.81 cm Ao root diam: 3.4 cm LVIDs: 3.3 cm LVPWd: 0.80 cm RVDd: 3.3 cm FS: 32.2 % LAV(MOD-bp): 62.6 ml LA A4 area: 21.9 cm2 LA dimension(2D): 3.8 cm LAV(MOD-bp) Indexed: 31.3 ml/m2 LAV(MOD-sp2): 60.1 ml LAV(MOD-sp4): 63.0 ml RA A4 area: 15.3 cm2 Time Measurements MV dec time: 0.26 sec Doppler Measurements AND Calculations MV E max lit: 69.3 cm/sec Lat Peak E' Lit: 9.9 cm/sec Med Peak E' Lit: 5.9 cm/sec MV A max lit: 77.1 cm/sec E/E' lat: 7.0 E/E' med: 11.7 MV E/A: 0.90 Ao V2 max: 159.6 cm/sec LV V1 max: 81.3 cm/sec PA V2 max: 94.8 cm/sec Ao max P.2 mmHg LV V1 max P.6 mmHg TR max lit: 252.8 cm/sec TR max P.8 mmHg Interpretation Summary Left ventricular systolic function is normal. The estimated ejection fraction is 60 %. The global longitudinal strain = -21 % (normal). The left atrium is mildly enlarged. Mild diffuse mitral valve thickening. Mild mitral valve prolapse. Mild-Moderate (1-2+) mitral valve insufficiency. Mild tricuspid valve insufficiency. Trivial aortic valve insufficiency. Mild (1+) pulmonic valve insufficiency. Right ventricular systolic pressure estimated to be 29 mmHg. No evidence for diastolic dysfunction. Ordering Physician: Chela Salgado Referring Physician: SAEID FLOWERS Performed By: Letty Osuna, RDCS, RVT 06/12/18 1747 Date Janes Sinha MD CC: Saeid Flowers DO; Chela Salgado EDITING INTERN Date Dictated: 06/12/18 1553 Date Transcribed: 06/12/18 1747 Dental Assistant: Signed ONCOLOGY VISIT REPORT Observed: 06/04/2018 Status: F Source: [facility] 12:15 PM [facility] [place] REPOSITORY [facility] [place] [address] OFFICE VISIT Date of Service: 06/04/18 0956 MR#: [id number] Acct: [id number] Name: FABI MOSES Rep #: [id number] : 1945 From: Chela Salgado EDITING INTERN-C Age/Sex: 72/F Location: [facility] Status: Signed Subjective - Date of Service Date of Service:: 06/04/18 - Chief Complaint breast cancer management - History of Present Illness 72 y.o.woman found to have an abnormal mammogram. She had biopsy on 04/30/2015, which showed invasive ductal carcinoma, ER/CO positive, HER2 negative. She had right breast lumpectomy and sentinel lymph node biopsy on 05/19/2015. Tumor size was 8 mm. Lymph nodes 2/2 were negative. Oncotype DX was 25. The patient received 4 cycles of Taxotere/Cytoxan, finishing on 09/21/2015. She completed adjuvant radiation therapy on 11/19/2015 under the care of Dr. Garcia. Subsequently she began adjuvant Arimidex in 11/2015. She was found to have R sided abdominal tenderness. CT a/p on 08/21/2017 showed gallstones and inhomogenous appearance in the lumber spine so bone scan was requested. Bone scan obtained 08/29/17 showed no evidence of metastatic disease, + DJD. - Interval History The patient is presenting to clinic for routine follow up. Underwent dexa scan and bilat screening mammogram 05/21/18 at [facility] and comes in to review results. Concerns today include exertional dyspnea. States she was previously established with Dr. Sinha for management of arrhythmia and palpitations but has not been evaluated by cardiology for several years. Worsening x 6 months, but still describes as not bad and occasional. Performing breast self exams monthly denies any palpable masses, skin abnormalities such as dimpling and nipple discharge or retraction. Reports good adherence and tolerance with anastrozole at the present time. Patient does not require refill today. Specifically denies weight loss, headaches, cough, chest pain, abdominal pain, new onset bone pain, and swelling or pain of her extremities. - Past Medical/Social History Past Medical History Past Medical History: Heart disease,Hyperlipidemia Other Past Medical History: PSORIARIS Cancer: Breast cancer Past Surgical History Surgical: Lumpectomy,Tonsillectomy Family History Paternal Past Medical History: Heart disease Maternal Past Medical History: Unknown Social History Social History: No changes Smoking Status Never smoker Review of Systems Constitutional:: Denies: Fever, Sweats, Weight loss, Appetite change, Chills Cardiovascular:: Denies: Chest pain, Palpitations, Orthopnea, PND, Shortness of breath Respiratory: Reports: Shortness of breath upon exertion. Denies: Cough, Hemoptysis, Shortness of Breath, Wheezing Gastrointestinal:: Denies: Abdominal pain, Nausea, Vomiting, Diarrhea, Constipation, Hematochezia Genitourinary: Denies: Dysuria, Hematuria, 15, Flank pain Musculoskeletal:: Denies: Back pain, Myalgia, Arthralgia Skin: Denies: Rash, Skin Changes, Wounds Neurological:: Denies: Headache, Dizziness, Numbness, Tingling, Visual changes, Tinnitus, Hearing loss Psychiatric: Denies: Anxiety, Depression, Homicidal Ideations, Suicidal Ideations Vital Signs Height 5 ft 9 in Weight: 184 lb 9.6 oz Weight in Pounds 184.6 lbs Pulse Ox 99 - Physical Exam General: Alert, Oriented x3, No apparent distress HEENT: Atraumatic, Normocephalic, - - Wears glasses Oropharynx:: Negative for: Dry mucosa, Ulcerated lesions Neck:: Supple, Trachea midline. Negative for: JVD, bilateral Cardiac:: Regular rate, Regular rhythm, Normal S1, Normal S2. Negative for: Murmur Lungs: Clear to auscultation, Excusion symmetrical. Negative for: Rhonchi, Wheezes Abdomen:: Bowel sounds x 4, Soft, Non-tender, Non-distended. Negative for: Hepatosplenomegaly Extremities:: Negative for: Cyanosis, Edema Neurological: Neuro grossly intact Skin:: Negative for: Lesions, Rash, Petechiae, Ecchymosis Psychiatric:: Appropriate affect, Euthymic Lymphatics:: Negative for: Cervical lymphadenopathy, Supraclavicular lymphadenopathy, Axillary lymphadenopathy Breast:: - - Right breast shows well-healed scar upper outer quadrant. No palpable masses skin abnormality such as dimpling nipple discharge or retraction. Left breast without palpable masses skin abnormality such as dimpling, nipple discharge or retraction. Laboratory Data: Laboratory Tests Vit D 1,25-Dihydroxy Cancelled Assessment and Plan 1. Invasive ductal carcinoma of the right breast, stage IA, on adjuvant Arimidex --CBC CMP reviewed and grossly within normal limits. Clinical breast exam unremarkable. She is otherwise not endorsing any signs or symptoms concerning for recurrent disease at the present time. Tolerating Arimidex well. She is advised to continue breast self exams monthly and promptly report any changes as well as to continue adjuvant Arimidex for a total of at minimum 5 years. 2. Osteopenia-DEXA scan obtained 05/21/2018 shows osteopenia in the lumbar spine. Given the context of current AI therapy, engaged in lengthy discussion regarding Prolia, indication, risks and benefits inclusive of hypocalcemia and osteonecrosis of the jaw. Patient provided with written educational information and dental clearance form. She would like to read through material and will let us know if she would like to proceed with Prolia. 3. Exertional dyspnea-in the absence of cough, orders provided for EKG and echocardiogram. Will consider referral to cardiology. Per patient request return to clinic in 2 weeks to review echocardiogram results and possibly proceed with Prolia. 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, estrogen receptor positive Status: Acute Qualifiers: Patient sex: female Qualified Code(s): C50.411 - Malignant neoplasm of upper-outer quadrant of right female breast; C50.412 - Malignant neoplasm of upper-outer quadrant of left female breast; Z17.0 - Estrogen receptor positive status [ER+] (2) Osteopenia Status: Acute Qualifiers: Osteopenia location: lumbar spine Qualified Code(s): M85.88 - Other specified disorders of bone density and structure, other site (3) Exertional dyspnea Status: Acute 06/04/18 1215 <Electronically signed by Cheal LION> Date Chela JAIMESC Cosigner Signature: Date (if applicable) CC: VITAMIN D,25 HYDROXY Collected: 06/04/2018 Status: F Source: [place] 9:30 AM [facility] [place] REPOSITORY TYPE CODE TESTS RESULT OUT OF RANGE REFERENCE UNITS LAB L506.1000 29.95-100.01 ng/mL Normal Vitamin D 33.6 25-OH Result Comment: Vitamin D 25(OH) Status Range Deficiency <20 ng/mL (50nmol/L) Insuffciency 20 - 30 ng/mL (50 - 75 nmol/L) Sufficiency 30 - 100 ng/mL (75 - 250 nmol/L) Toxicity >100 ng/mL (>250 nmol/L) Performed By: #### L506.1000 #### [facility] [place], [address] CBC W/DIFF, AUTOMATED Collected: 06/04/2018 Status: F Source: [place] 9:28 AM [facility] [place] REPOSITORY Order Comment: Reason for Laboratory Test . TYPE CODE TESTS RESULT OUT OF RANGE REFERENCE UNITS LAB L100.1000 4.4-11.0 K/mm3 Low WBC 4.1 LAB L100.1200 4.2-5.4 M/mm3 Normal RBC 4.70 LAB L100.1300 12.0-15.0 g/dl Normal HGB 13.5 LAB L100.1400 37-47 % Normal HCT 42.2 LAB L100.1500 81-99 fL Normal MCV 89.8 LAB L100.1600 27.0-32.0 pg Normal MCH 28.7 LAB L100.1700 32-36 g/gl Normal MCHC 32.0 LAB L100.1810 11.6-14.6 % Normal RDW CV 13.3 LAB L100.1820 35.1-43.9 fl Normal RDW SD 43.4 LAB L100.1900 150-450 K/mm3 Normal PLT 206 LAB L100.2000 6.2-12.0 fl Normal MPV 9.6 LAB L100.2100 47-70 % Normal NEUT% 57.2 LAB L100.2200 19-41 % Normal LY% 31.0 LAB L100.2300 0-10 % Normal MONO% 8.0 LAB L100.2400 0-5 % Normal EO% 2.9 LAB L100.2500 0-1 % Normal BASO% 0.7 LAB L100.2550 0.0-0.9 % Normal IM GRAN % 0.200 Result Comment: IG% - Immature Granulocytes (promyelocytes, myelocytes and metamyelocytes) > 1% indicates that a LEFT SHIFT is Present. LAB L100.2620 2.0-7.7 X10 3/uL Normal Absolute Neut 2.3 LAB L100.2720 0.83-4.51 X10 3/ul Normal Absolute Lymph 1.27 Performed By: #### L100.0100 #### [facility] [address] [place], [address] COMPREHENSIVE METABOLIC Collected: 06/04/2018 Status: F Source: [facility] 9:28 AM [facility] REPOSITORY Order Comment: Reason for Laboratory Test . TYPE CODE TESTS RESULT OUT OF RANGE REFERENCE UNITS LAB L501.0100 74-106 mg/dL Low GLU 72 Result Comment: Please note revised GLUCOSE reference range effective 2017. LAB L501.1000 7-18 mg/dL Normal BUN 13 LAB L501.1100 0.55-1.02 mg/dL High CREAT,SERUM 1.03 Result Comment: The validity of the calculated GFR AND GFRAA in patients over 70 years has not been determined. Clinical correlation is essential. LAB L501.1110 >60 mL/min Low EST GFR 56 Result Comment: Non- GFR Calc LAB L501.1115 >60 mL/min Normal EST GFR - AA 68 Result Comment: GFR Calc LAB L501.1255 ml/min Normal Estimated CRCL 52.35 LAB L501.1300 10-20 RATIO Normal BUN/CRE 12.6 LAB L501.1500 6.4-8. g/dL Normal 2 T PROT 7.3 LAB L501.1800 3.2-5. g/dL Normal 0 ALB 3.6 LAB L501.1950 2.2-4. g/dL Normal 2 GLOB 3.7 LAB L501.2000 0.9-2. RATIO Normal 4 A/G 1.0 LAB L501.2200 8.5-10 mg/dL Normal .1 CA 9.5 LAB L501.4100 15-37 U/L Normal AST 20 LAB L501.4305 45-117 U/L Normal ALK P 74 LAB L501.4405 13-56 U/L Normal ALT 23 LAB L501.4600 0.20-1 mg/dL Normal .00 T BILI 0.40 LAB L501.5300 136-14 mmol/L Normal 5 NA 144 LAB L501.5600 3.5-5. mmol/L Normal 1 K 4.6 LAB L501.5900 98-107 mmol/L Normal CL 107 LAB L501.6100 21.0-3 mmol/L Normal 2.0 CO2 29.0 LAB L501.6200 5-15 Normal GAP 8 Performed By: #### L500.4050 #### [facility] [address] [place] [address]. [place], [address] BONE DENSITY DEXA Observed: 05/21/2018 Status: F Source: [place] AXIAL [facility] 9:00 AM [facility] REPOSITORY ORIGINAL BONE DENSITOMETRY CLINICAL STATEMENT: ENCOUNTER FOR SCREENING FOR OSTEOPOROSIS , POST MENOPAUSAL COMPARISON: 01/01/2016 T Score Left Femoral Neck: -1.3 BMD (g/cm2) Left Femoral Neck: 0.709 T Score Left Hip: -0.6 BMD (g/cm2) Left Hip: 0.872 T Score Lumbar Spine L1-L4: -2.1 BMD (g/cm2) Lumbar Spine L1-L4: 0.816 CONCLUSION: The patient is considered osteopenic based on the lumbar spine which has a T score of -2.1. BMD Change from previous Hip: -8.0 % BMD Change from previous Lumbar Spine: -6.6 % *By the World Health Organization standards: Osteopenia is present when the bone mineral density is greater than 1 standard deviation (SD) but less than 2.5 SDs below a young normal sex matched populati on. Osteoporosis is present when the bone mineral density is equal to or greater than 2.5 SDs below a young normal sex matched population. Interpreted By: Jun Yu MD Preliminary Report By: Jun Yu MD Electronically Signed By: Jun Yu MD Dictated Date: 05/21/2018 4:44:21 PM Prelim Date: 05/21/2018 4:44:21 PM Sign Date: 05/21/2018 4:47:19 PM ALT/SGPT Collected: 05/21/2018 Status: F Source: [facility] 8:41 AM [facility] REPOSITORY TYPE CODE TESTS RESULT OUT OF RANGE REFERENCE UNITS LAB ALT(LOINC) 10-35 U/L ALT/SGPT 21 Performed By: #### ALT, LIPID #### [address] [address] LIPID Collected: 05/21/2018 Status: F Source: [facility] 8:41 AM [facility] REPOSITORY TYPE CODE TESTS RESULT OUT OF REFERENCE UNITS RANGE LAB CHOL(LOINC 0-200 mg/dL ) Cholesterol 185 Result Comment: Cholesterol Reference Interval: Less than 200 Desirable 200-239 Borderline high risk 240 and above High risk LAB TRIG(LOINC) 0-150 mg/dL Triglycerides 97 Result Comment: Triglyceride Reference Interval: Less than 150 Normal 150-199 Borderline high risk 200-499 High risk 500 or higher Very high risk LAB HD(LOINC) 40-60 mg/dL HDL High Cholesterol 64 LAB LDL(LOINC) 0-130 mg/dL LDL Cholesterol 102 Performed By: #### ALT, LIPID #### [facility] [address] [place] [address] [place] MAMMOGRAM SCREENING Observed: 05/21/2018 Status: F Source: [facility] BILATERAL W/[place] 8:30 AM [facility] REPOSITORY ORIGINAL FROM: [facility] [address], [place] [address] PROCEDURE FOR: FABI MOSES [address] [place] [address] Home: PID#: [id number] Exam#: [id number] : 1945 Age: 72 TO: CHELA SALGADO EDGING CATCHER [address] [place] [address] #[id number] BILATERAL DIGITAL SCREENING MAMMOGRAM 3D/2D WITH CAD WITH MEDIOLATERAL OBLIQUE CRANIOCAUDAL: 05/21/2018 Comparison is made to exams dated: 05/19/2016 mammogram and 05/19/2017 mammogram - [facility]. The tissue of both breasts is heterogeneously dense. Current study was also evaluated with a Computer Aided Detection (CAD) system. Scattered calcifications are present in the right breast and scattered benign appearing densities are present in the left breast. There is evidence of post-surgical and radiation changes associated with the right breast. Examination indicates a biopsy marker in the left breast. No significant masses, calcifications, or other findings are seen in either breast. IMPRESSION: BENIGN There is no mammographic evidence of malignancy. A follow- up mammogram in 12 months is recommended.(05/21/2019) I have personally reviewed the images of the examination and agree with the findings and interpretation. mónica Brown MD, M.D./reny:05/21/2018 15:42:14 copy to: SAEID FLOWERS DO, ph: [phone], fax: [phone] Stock Lifter(s): RT SHANNAN (R)(M), [facility] letter sent: Normal BI-RADS 1&2 Mammogram BI-RADS: 2 Benign ONCOLOGY VISIT REPORT Observed: 02/28/2018 Status: F Source: [place] 4:00 PM [facility] REPOSITORY [facility] [address] [place] [address] OFFICE VISIT Date of Service: 02/28/18 1115 MR#: [id number] Acct: [id number] Name: BAHAIFABI Rep #: [id number] : 1945 From: Chela Salgado EDITING INTERN-C Age/Sex: 72/F Location: OMD Status: Signed Subjective - Date of Service Date of Service:: 02/28/18 - Chief Complaint breast cancer management - History of Present Illness 72 y.o.woman found to have an abnormal mammogram. She had biopsy on 04/30/2015, which showed invasive ductal carcinoma, ER/CO positive, HER2 negative. She had right breast lumpectomy and sentinel lymph node biopsy on 05/19/2015. Tumor size was 8 mm. Lymph nodes 2/2 were negative. Oncotype DX was 25. The patient received 4 cycles of Taxotere/Cytoxan, finishing on 09/21/2015. She completed adjuvant radiation therapy on 11/19/2015 under the care of Dr. Garcia. Subsequently she began adjuvant Arimidex in 11/2015. She was found to have R sided abdominal tenderness. CT a/p on 08/21/2017 showed gallstones and inhomogenous appearance in the lumber spine so bone scan was requested. Bone scan obtained 08/29/17 showed no evidence of metastatic disease, + DJD. - Interval History The patient is presenting to clinic for routine six-month follow-up and denies any concerns related to today's visit. Reports good tolerance as well as good adherence with AI. Performing breast self exams monthly and denies any changes. Further denies weight loss, headaches, cough, shortness of breath, abdominal pain, and swelling or pain of her extremities. Discontinued calcium and vitamin D as advised by Dr. Conn. Describes a fair amount of weightbearing activity throughout the day. - Past Medical/Social History Past Medical History Past Medical History: Heart disease,Hyperlipidemia Other Past Medical History: PSORIARIS Cancer: Breast cancer Past Surgical History Surgical: Lumpectomy,Tonsillectomy Family History Paternal Past Medical History: Heart disease Maternal Past Medical History: Unknown Social History Social History: No changes Smoking Status Never smoker Review of Systems Constitutional:: Denies: Fever, Sweats, Weight loss, Appetite change, Chills Cardiovascular:: Denies: Chest pain, Palpitations, Dyspnea on exertion, Orthopnea, PND, Shortness of breath Respiratory: Denies: Cough, Hemoptysis, Shortness of Breath, Wheezing Gastrointestinal:: Denies: Abdominal pain, Nausea, Vomiting, Diarrhea, Constipation, Hematochezia Genitourinary: Denies: Dysuria, Hematuria, 15, Flank pain Musculoskeletal:: Reports: Arthralgia - Left foot following with tag stringer. Denies: Back pain, Myalgia Skin: Denies: Rash, Skin Changes, Wounds Neurological:: Denies: Headache, Dizziness, Numbness, Tingling, Visual changes, Tinnitus, Hearing loss Psychiatric: Denies: Anxiety, Depression, Homicidal Ideations, Suicidal Ideations Vital Signs Height 5 ft 9 in Weight: 184 lb 9.6 oz Weight in Pounds 184.6 lbs Pulse Ox 99 - Physical Exam General: Alert, Oriented x3, No apparent distress HEENT: Atraumatic, Normocephalic, - - Wears glasses Oropharynx:: Dry mucosa Neck:: Supple, Trachea midline. Negative for: JVD, bilateral Cardiac:: Regular rate, Regular rhythm, Normal S1, Normal S2. Negative for: Murmur Lungs: Clear to auscultation, Excusion symmetrical. Negative for: Rhonchi, Wheezes Abdomen:: Bowel sounds x 4, Soft, Non-tender, Non-distended. Negative for: Hepatosplenomegaly Extremities:: Negative for: Cyanosis, Edema Neurological: Neuro grossly intact Skin:: Negative for: Lesions, Rash, Petechiae, Ecchymosis Psychiatric:: Appropriate affect, Euthymic Lymphatics:: Negative for: Cervical lymphadenopathy, Supraclavicular lymphadenopathy, Axillary lymphadenopathy Breast:: - - Right breast shows well-healed scar upper outer quadrant. No palpable masses skin abnormality such as dimpling nipple discharge or retraction. Left breast without palpable masses skin abnormality such as dimpling nipple discharge or retraction. Laboratory Data: Laboratory Tests WBC 3.7 L (4.4-11.0) K/mm3 RBC 4.65 (4.2-5.4) M/mm3 Hgb 13.2 (12.0-15.0) g/dl Assessment and Plan 1. Invasive ductal carcinoma of the right breast, stage IA, on adjuvant Arimidex --CBC CMP reviewed and grossly within normal limits. Clinical breast exam unremarkable. She is otherwise not endorsing any signs or symptoms concerning for recurrent disease at the present time. Tolerating Arimidex well. She is advised to continue breast self exams monthly and promptly report any changes as well as to continue adjuvant Arimidex for a total of at minimum 5 years. 2. Osteopenia-due for bone density test orders provided. Patient will have completed in May simultaneously with mammogram. RTC in May to review mammogram and DEXA scan results, no labs. 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, estrogen receptor positive Status: Acute Qualifiers: Patient sex: female Qualified Code(s): C50.411 - Malignant neoplasm of upper-outer quadrant of right female breast; C50.412 - Malignant neoplasm of upper-outer quadrant of left female breast; Z17.0 - Estrogen receptor positive status [ER+] (2) Osteopenia Status: Acute 02/28/18 1600 <Electronically signed by Chela JAIMESC> Date Chela LION Cosigner Signature: Date (if applicable) CC: CBC W/DIFF, AUTOMATED Collected: 02/28/2018 Status: F Source: [place] 10:35 AM [facility] REPOSITORY Order Comment: Reason for Laboratory Test . TYPE CODE TESTS RESULT OUT OF RANGE REFERENCE UNITS LAB L100.1000 4.4-11.0 K/mm3 Low WBC 3.7 LAB L100.1200 4.2-5.4 M/mm3 Normal RBC 4.65 LAB L100.1300 12.0-15.0 g/dl Normal HGB 13.2 LAB L100.1400 37-47 % Normal HCT 42.0 LAB L100.1500 81-99 fL Normal MCV 90.3 LAB L100.1600 27.0-32.0 pg Normal MCH 28.4 LAB L100.1700 32-36 g/gl Low MCHC 31.4 LAB L100.1810 11.6-14.6 % Normal RDW CV 13.3 LAB L100.1820 35.1-43.9 fl Normal RDW SD 43.4 LAB L100.1900 150-450 K/mm3 Normal PLT 187 LAB L100.2000 6.2-12.0 fl Normal MPV 9.9 LAB L100.2100 47-70 % Normal NEUT% 53.8 LAB L100.2200 19-41 % Normal LY% 33.9 LAB L100.2300 0-10 % Normal MONO% 8.3 LAB L100.2400 0-5 % Normal EO% 3.2 LAB L100.2500 0-1 % Normal BASO% 0.8 LAB L100.2550 0.0-0.9 % Normal IM GRAN % 0.000 Result Comment: IG% - Immature Granulocytes (promyelocytes, myelocytes and metamyelocytes) > 1% indicates that a LEFT SHIFT is Present. LAB L100.2620 2.0-7.7 X10 3/uL Normal Absolute Neut 2.0 LAB L100.2720 0.83-4.51 X10 3/ul Normal Absolute Lymph 1.26 Performed By: #### L100.0100 #### [facility] [address] [place], [place], [address] COMPREHENSIVE METABOLIC Collected: 02/28/2018 Status: F Source: [facility] 10:35 AM [facility] REPOSITORY Order Comment: Reason for Laboratory Test . TYPE CODE TESTS RESULT OUT OF RANGE REFERENCE UNITS LAB L501.0100 74-106 mg/dL Normal GLU 90 Result Comment: Please note revised GLUCOSE reference range effective 2017. LAB L501.1000 7-18 mg/dL Normal BUN 15 LAB L501.1100 0.55-1.02 mg/dL Normal CREAT,SERUM 0.98 Result Comment: The validity of the calculated GFR AND GFRAA in patients over 70 years has not been determined. Clinical correlation is essential. LAB L501.1110 >60 mL/min Normal EST GFR 60 Result Comment: Non- GFR Calc LAB L501.1115 >60 mL/min Normal EST GFR - AA 72 Result Comment: GFR Calc LAB L501.1255 ml/min Normal Estimated CRCL 55.03 LAB L501.1300 10-20 RATIO Normal BUN/CRE 15.3 LAB L501.1500 6.4-8. g/dL Normal 2 T PROT 7.5 LAB L501.1800 3.2-5. g/dL Normal 0 ALB 3.8 LAB L501.1950 2.2-4. g/dL Normal 2 GLOB 3.7 LAB L501.2000 0.9-2. RATIO Normal 4 A/G 1.0 LAB L501.2200 8.5-10 mg/dL Normal .1 CA 9.7 LAB L501.4100 15-37 U/L Normal AST 24 LAB L501.4305 45-117 U/L Normal ALK P 79 LAB L501.4405 13-56 U/L Normal ALT 23 LAB L501.4600 0.20-1 mg/dL Normal .00 T BILI 0.40 LAB L501.5300 136-14 mmol/L Normal 5 NA 142 LAB L501.5600 3.5-5. mmol/L Normal 1 K 4.5 LAB L501.5900 98-107 mmol/L Normal CL 107 LAB L501.6100 21.0-3 mmol/L Normal 2.0 CO2 28.0 LAB L501.6200 5-15 Normal GAP 7 Performed By: #### L500.4050 #### [facility] [address] [facility] [place], [address] ONCOLOGY VISIT REPORT Observed: 09/07/2017 Status: F Source: [place] 4:01 PM [facility] REPOSITORY [facility] [address] [place] [address]. [place] [address] OFFICE VISIT Date of Service: 09/07/17 1523 MR#: [id number] Acct: [id number] Name: BAHAIFABI Gerhard Rep #: [id number] : 1945 From: Eber Conn MD Age/Sex: 72/F Location: OMD Status: Signed Subjective - Date of Service Date of Service:: 09/07/17 - Chief Complaint F/u for bone scan results. - History of Present Illness 71y.o.woman found to have an abnormal mammogram. She had biopsy on 04/30/2015, which showed invasive ductal carcinoma, ER/CO positive, HER2 negative. She had right breast lumpectomy and sentinel lymph node biopsy on 05/19/2015. Tumor size was 8 mm. Lymph nodes 2/2 were negative. Oncotype DX was 25. The patient received 4 cycles of Taxotere/Cytoxan, finishing on 09/21/2015. She completed adjuvant radiation therapy on 11/19/2015 under the care of Dr. Garcia. Subsequently she began adjuvant Arimidex in 11/2015. She was found to have R sided abdominal tenderness. CT a/p on 08/21/2017 showed gallstones and inhomogenous appearance in the lumber spine so bone scan was requested and she comes in for follow up. She feels well, denies pain. - Past Medical/Social History Past Medical History Past Medical History: Heart disease,Hyperlipidemia Other Past Medical History: PSORIARIS Cancer: Breast cancer Past Surgical History Surgical: Lumpectomy,Tonsillectomy Family History Paternal Past Medical History: Heart disease Maternal Past Medical History: Unknown Social History Smoking Status Never smoker Review of Systems Constitutional:: Denies: Fever, Sweats, Weight loss, Appetite change, Chills Cardiovascular:: Denies: Chest pain, Palpitations, Dyspnea on exertion, Orthopnea, PND, Shortness of breath Respiratory: Denies: Cough, Hemoptysis, Shortness of Breath, Wheezing Gastrointestinal:: Denies: Abdominal pain, Nausea, Vomiting, Diarrhea, Constipation, Hematochezia Genitourinary: Denies: Dysuria, Hematuria, 15, Flank pain Musculoskeletal:: Reports: Arthralgia. Denies: Back pain, Myalgia Skin: Denies: Rash, Skin Changes, Wounds Neurological:: Denies: Headache, Dizziness, Visual changes, Tinnitus, Hearing loss Psychiatric: Denies: Anxiety, Depression, Homicidal Ideations, Suicidal Ideations Vital Signs Height 5 ft 9 in Weight: 81.465 kg Weight in Pounds 179.6 lbs Pulse Ox 100 - Physical Exam General: Alert, Oriented x3, No apparent distress Diagnostic Data: 08/29/2017 Bone scan reviewed, no evidence of metastatic disease, + DJD. Assessment and Plan Breast Cancer stage IA on adjuvant Anastrozole. Changes in lumbar spine-bone scan is negative. Gallstones-asymptomatic. Plan is to continue Anastrozole. RTC 6 months cbc, cmp. Medications: Prescriptions This Visit Medication Instructions Recorded Anastrozole [Arimidex] 1 mg PO DAILY #90 tab 08/08/17 Multivit-Min/Iron/Folic/Lutein 1 each PO DAILY 08/08/17 [Centrum Silver Women Tablet] Primary Care Provider: Saeid Flowers Referring Provider: - Problem List (1) History of right breast cancer Status: Chronic Code Visit Office Visits / Consults: 50480 OV L3 Est 09/07/17 1601 <Electronically signed by Eber Conn MD> Date Eber Conn MD Cosigner Signature: Date (if applicable) CC: BONE SCAN WHOLE Observed: 08/29/2017 Status: F Source: [place] [facility] 8:29 AM [facility] REPOSITORY [facility] [address] [place] [address] Bone Scan Whole Body MR#: [id number] Acct: [id number] Name: FABI MOSES Rep #: [id number] : 1945 F 71 From: Rishabh Max DO PCP: Saeid Flowers DO Status: REG CLI Study: Bone Scan Whole Body Date of Exam: 08/29/17 Exam# [id number] Ordering Dr: Eber Conn MD CLINICAL: 71-year-old female with reported history of carcinoma of the breast. WHOLE BODY 99m Tc MDP RADIONUCLIDE BONE SCINTIGRAPHY COMPARISON: None available FINDINGS: Following the intravenous administration of 26.2 mCi of 99m Tc MDP, whole body bone images reveal: 1. Increased radiopharmaceutical concentration is identified in the acromioclavicular compartments of both shoulders, the patellofemoral compartments of both knees, medial tibial-femoral compartment of the left knee, dorsal medial compartment of the left ankle, lateral compartments of the right-left ankles, the midfoot bilaterally. 2. The remaining skeletal structures are scintigraphically unremarkable with normal-appearing renal images and urinary bladder activity identified. NM/Bone Scan Whole Body IMPRESSION: 1. The increased radiopharmaceutical concentration identified in the bilateral shoulder and knee articulations, right-left ankles, the midfoot bilaterally is most consistent with degenerative arthritis. 2. There is no definitive typical scintigraphic evidence of skeletal metastatic disease on the current examination. Electronically Signed: Rishabh DO Mansoor at 10:03 EST Tel , Service support , CC: Saeid Flowers DO; Eber Conn MD Dental Assistant: Signed ABDOMEN/PELVIS WITH Observed: 08/21/2017 Status: F Source: [place] CONTRAST 4:50 PM [facility] REPOSITORY [facility] [address] [place] [address] Abdomen/Pelvis WITH Contrast MR#: [id number] Acct: [id number] Name: FABI MOSES Rep #: [id number] : 1945 F 71 From: Alexandre Simeon MD PCP: Saeid Flowers DO Status: REG CLI Study: Abdomen/Pelvis WITH Contrast Date of Exam: 08/21/17 Exam# [id number] Ordering Dr: Chela Salgado EDITING INTERN-Chrystal STUDY: CT ABDOMEN AND PELVIS WITH CONTRAST REASON FOR EXAM: Female, 71 years old. Left lower quadrant pain and diarrhea. The patient has a history of breast cancer. RADIATION DOSAGE (If Supplied By Facility): CTDIvol = ( 15.06 ) mGy, DLP = ( 905.72 ) mGycm TECHNIQUE: Transaxial images were obtained from the dome of the diaphragm to the symphysis pubis with oral contrast. 100ML ml of Isovue 300 contrast was administered. Sagittal and coronal images were reconstructed. Individualized dose optimization techniques were used for this CT. COMPARISON: None. FINDINGS: Minimal increased markings in the right middle lobe suggestive of scarring. 1 cm bulla is seen in the right middle lobe. The visualized portions of the heart are within normal limits. Minimally dilated intrahepatic biliary ducts. I suspect tiny gallstones along the dependent portion of the gallbladder lumen. Correlation with ultrasound is recommended. Normal gallbladder and extrahepatic biliary system. Normal spleen. Normal pancreas. Normal bilateral adrenal glands. Normal right kidney. Normal left kidney. There is a small hiatal hernia. Normal small intestine. There are multiple colonic diverticula consistent with diverticulosis. The appendix is visualized and appears normal. Normal abdominal aorta. Normal inferior vena cava. Normal retroperitoneum. Normal urinary bladder. Normal abdominal wall. Inhomogeneous appearance of several lumbar vertebrae. Questionable tiny lucencies in the iliac bones bilaterally. Correlation with a bone scan is recommended. CT/Abdomen/Pelvis WITH Contrast IMPRESSION: Questionable tiny gallstones. Sigmoid diverticulosis. Inhomogeneous appearance of the lumbar vertebrae as well as the iliac bones. Correlation with a bone scan is recommended. Electronically Signed: Alexandre Simeon MD at 12:43 EST Tel [phone], Service support , CC: Saeid Salgado NP Dental Assistant: Signed ALLERGIES ALLERGIES DATE TYPE / CODE NAME / CODE REACTION SEVERITY SOURCE 07/10/2018 Drug No Known Unknown [facility] Allergy/4160 Allergies/F00 Hospital 12270(SNOMED 4090922(RXNOR Repository CT) M) ENCOUNTERS ENCOUNTERS ADMIT/DISCHARGE ACCOUNT NUMBER ADMITTING ENCOUNTER LOCATION SOURCE CLASS 07/19/2018 [id number] Ambulatory [facility] ding:[facility] Repository 07/11/2018 [id number] Ambulatory [facility] ding:LAB Repository 07/10/2018/07/10/19 [id number] Ambulatory BMSBuilding: [place] 19 BMS.[facility] Repository 07/09/2018/07/09/19 [id number] Ambulatory BMSBuilding: Mittie 19 BMS.[facility] Repository 06/21/2018/06/21/20 [id number] Ambulatory BMSBuilding: [place] 18 BMS.[facility] Repository 06/18/2018 [id number] Ambulatory BMSBuilding: [place] BMS.[facility] Repository 06/18/2018 [id number] Ambulatory [facility] ding:OMD Repository 06/14/2018 [id number] Ambulatory [facility] ding:[facility]S Repository 06/14/2018 [id number] Ambulatory BMSBuilding: [facility] Repository 06/12/2018 [id number] Ambulatory [facility] ding:[facility]S Repository 06/12/2018 [id number] Ambulatory BMSBuilding: [facility] Repository 06/04/2018 [id number] Ambulatory BMSBuilding: Mittie BMS.[facility] Repository 05/21/2018/05/21/20 [id number] Ambulatory BBuilding:RA [address] Repository 05/21/2018/05/21/20 [id number] Ambulatory BBuilding:OL [address] Repository 02/28/2018 [id number] Ambulatory BMSBuilding: [place] BMS.CF.[facility] Repository 09/07/2017 [id number] Ambulatory BMSBuilding: [place] BMS.[facility] Repository 08/29/2017 [id number] Ambulatory [facility] ding:NM Repository 08/23/2017 [id number] Ambulatory BMSBuilding: [place] BMS.[facility] Repository 08/21/2017 [id number] Ambulatory [facility] ding:CT Repository 08/08/2017 [id number] Ambulatory BMSBuilding: [place] BMS.[facility] Repository PAYERS PAYERS ENCOUNTER GUARANTOR PAYER SUBSCRIBER SOURCE 07/19/2018 FABI A Primary FABI Gerhard Adhikari [id number] S Insurance:MEDICARE CHRISTIANDOB: [facility], PART A [facility] [id number] [facility]ingley [facility] [address]Udu: Number: Repository [id number] () Date:2018-07-10 07/19/2018 Secondary FABI A Mittie Insurance:AARPPolicy CHRISTIANDOB: [facility] Number: [id number] Hospital [id number] Repository Date:0684-06-09[address], [place] [address]UL: 07/19/2018 Tertiary NOT GIVENUNK [place] Insurance:SELF PAY [place] Number: Effective Repository Date:2018-07-10 07/11/2018 FABI A Primary FABI A Mittie [id number] S Insurance:MEDICARE CHRISTIANDOB: [facility] [place], PART A olic [id number] [place] [address]Eus: Number: Repository [id number] (HP) Date:2018-07-11 07/11/2018 Secondary FABI A [place] Insurance:AARPPolicy CHRISTIANDOB: Community Number: [id number] Hospital [id number] Repository Date:0779-79-12C[address], [place] [address]RG: 07/11/2018 Tertiary NOT GIVENUNK [place] Insurance:SELF PAY [facility] Number: Effective Repository Date:2018-07-11 07/10/2018 FABI A Primary FABI A [place] [id number] S Insurance:MEDICARE CHRISTIANDOB: [facility], PART A [facility] [id number] [place] [address]Djx: Number: Repository [id number] () Date:2018-06-18 07/10/2018 Secondary FABI A [place] Insurance:AARPPolicy CHRISTIANDOB: Community Number: [id number] Hospital [id number] Repository Date:7626-28-29[address], [place] [address]SR: 07/10/2018 Tertiary NOT GIVENUNK [place] Insurance:SELF PAY [place] Number: Effective Repository Date:2018-07-10 07/09/2018 FABI A Primary FABI A [place] [id number] S Insurance:MEDICARE CHRISTIANDOB: [facility] [place], PART A [facility] [id number] [place] [address]Lfe: Number: Repository [id number] (HP) Date:2018-06-21 07/09/2018 Secondary FABI A [place] Insurance:AARPPolicy CHRISTIANDOB: Community Number: [id number] Hospital [id number] Repository Date:3683-81-54Jj [address], [place] [address]ID: 07/09/2018 Tertiary NOT GIVENUNK [place] Insurance:SELF PAY [facility] Number: Effective Repository Date:2018-07-09 06/21/2018 FABI A Primary FABI A Mittie [id number] S Insurance:MEDICARE CHRISTIANDOB: [facility], PART A [facility] [id number] Tingley Hospital [address]Xoe: Number: Repository [id number] () Date:2018-06-18 06/21/2018 Secondary FABI A [place] Insurance:AARPPolicy CHRISTIANDOB: Community Number: [id number] Hospital [id number] Repository Date:5445-87-93[address], [place] [address]WS: 06/21/2018 Tertiary NOT GIVENUNK [place] Insurance:SELF PAY [facility] Number: Effective Repository Date:2018-06-21 06/18/2018 FABI A Primary FABI A [place] [id number] S Insurance:MEDICARE CHRISTIANDOB: [facility], PART A [facility] [id number] Tingley Hospital [address]Utc: Number: Repository [id number] () Date:2012-02-01 06/18/2018 Secondary FABI A [place] Insurance:AARPPolicy CHRISTIANDOB: Community Number: [id number] Hospital [id number] Repository Date:0291-94-84Ur [address], [place] [address]RU: 06/18/2018 Tertiary NOT GIVENUNK [place] Insurance:SELF PAY [facility] Number: Effective Repository Date:2018-06-18 06/18/2018 FABI A Primary FABI A [place]ie [id number] S Insurance:MEDICARE CHRISTIANDOB: [facility], PART A [facility] [id number] Tingley Hospital [address]Iyi: Number: Repository [id number] () Date:2012-02-01 06/18/2018 Secondary FABI A Mittie Insurance:AARPPolicy CHRISTIANDOB: Community Number: [id number] Hospital [id number] Repository Date:7657-43-02[address], [place] [address]FX: 06/18/2018 Tertiary NOT GIVENUNK [place] Insurance:SELF PAY [place] Number: Effective Repository Date:2016-09-22 06/14/2018 FABI A Primary FABI A [place] [id number] S Insurance:MEDICARE CHRISTIANDOB: [facility], PART A [facility] [id number] Tingley Hospital [address]Myv: Number: Repository [id number] () Date:2018-06-14 06/14/2018 Secondary FABI A [place] Insurance:AARPPolicy CHRISTIANDOB: Community Number: [id number] Hospital [id number] Repository Date:9380-45-37Xv [address], [place] [address]XU: 06/14/2018 Tertiary NOT GIVENUNK [place] Insurance:SELF PAY [facility] Number: Effective Repository Date:2018-06-14 06/14/2018 FABI A Primary FABI A [place] [id number] S Insurance:MEDICARE CHRISTIANDOB: [facility], PART A [facility] [id number] Tingley Hospital [address]Oqe: Number: Repository [id number] () Date:2018-06-14 06/14/2018 Secondary FABI A [place] Insurance:AARPPolicy CHRISTIANDOB: Community Number: [id number] Hospital [id number] Repository Date:5917-16-74Ix [address], [place] [address]CH: 06/14/2018 Tertiary NOT GIVENUNK Mittie Insurance:SELF PAY [place] Number: Effective Repository Date:2018-06-14 06/12/2018 FABI A Primary FABI Hennessy [place] [id number] S Insurance:MEDICARE CHRISTIANDOB: [facility], PART A [facility] [id number] Tingley Hospital [address]Acj: Number: Repository [id number] (HP) Date:2018-06-04 06/12/2018 Secondary FABI A Mittie Insurance:AARPPolicy [facility]: [facility] Number: [id number] Hospital [id number] Repository Date:3226-25-56Kz [address], [place] [address]OB: 06/12/2018 Tertiary NOT GIVENUNK Mittie Insurance:SELF PAY [place] Number: Effective Repository Date:2018-06-04 06/12/2018 FABI A Primary FABI A [place] [id number] S Insurance:MEDICARE CHRISTIANDOB: [facility], PART A [facility] [id number] Tingley Hospital [address]Rur: Number: Repository [id number] () Date:2018-06-04 06/12/2018 Secondary FABI A Mittie Insurance:AARPPolicy CHRISTIANDOB: Community Number: [id number] Hospital [id number] Repository Date:6015-74-57Pj [address], [place] [address]QZ: 06/12/2018 Tertiary NOT GIVENUNK [place] Insurance:SELF PAY [place] Number: Effective Repository Date:2018-06-12 06/04/2018 FABI A Primary FABI A [place] [id number] S Insurance:MEDICARE CHRISTIANDOB: [facility], PART A [facility] [id number] Tingley Hospital [address]Qom: Number: Repository [id number] () Date:2012-02-01 06/04/2018 Secondary FABI A Mittie Insurance:AARPPolicy CHRISTIANDOB: [facility] Number: [id number] [facility] [id number] Repository Date:5098-40-45Zi [address], [place] [address]BU: 06/04/2018 Tertiary NOT GIVENUNK [place] Insurance:SELF PAY [facility]: Effective Repository Date:2018-06-04 05/21/2018 FABI A Primary FABI Gerhard Critical access hospitalIANDOB: Insurance:MEDICARE CHRISTIANDOB: [facility] S PART B INSCOPolicy [id number] Repository [facility], Number: [place] [id number] [place] [address]FRANCINERIS Date:2018-02-28Tel: ([phone]) [email or web address] [id number] 1 T.NETTel: (330) Name:[facility] () Administrators [facility] 000-0000 (WP) ()Tel: (999) [address]Xmwpiqycu, [phone] (WP) [place] [address]VW: 05/21/2018 Secondary FABI Gerhard [facility] Insurance:[facility]ESS[facility] HEALTH CHRISTIANDOB: [facility] HEALTH-SECONDARY ONLY [id number] Repository INSCOPolicy Number: Rasta FISCHER [id number] [place] Date:2018-02-2893883Wgj: [phone] Name:[employer] Box ()Tel: 000 [address]Geerqfw, [place] 000-0000 ([place]) [address]HI: 05/21/2018 FABI A Primary FABI Gerhard Critical access hospitalIANDOB: Insurance:MEDICARE CHRISTIANDOB: [facility] S PART B INSCOPolicy [id number] Repository MAIN [facility] Number: [place] [id number] [place] [address]~JOSE Date:2018-05-21Tel: ([phone]) [email or web address] [id number] [phone] T.NETTel: (330) Name:[facility] () Administrators [facility] 000-0000 ([place]) ()Tel: (999) [address]Lemtthqcv, [phone] (WP) [place] [address]OW: 05/21/2018 Secondary FABI A [facility] [id number] Repository INSCOPolicy Number: Rasta FISCHER [id number] [place] Date:2018-05-2169028Wau: [phone] [id number] [phone] Name:[employer] Box ()Tel: ([phone]) [phone], [place] 000-0000 () [address]VV: 02/28/2018 Fabi A Primary Fabi A [place] [id number] S Insurance:MEDICARE ChristianDOB: [facility], PART A [facility] [id number] Tingley Hospital [address]Acq: Number: Repository [id number] () Date:2012-02-01 02/28/2018 Secondary Fabi A Mittie Insurance:AARolic ChristianDOB: [facility] Number: [id number] Hospital [id number] Repository Date:9738-22-73Ki [address], [place] [address]ZW: 02/28/2018 Tertiary NOT GIVENUNK Mitt[place] Insurance:SELF PAY [place] Number: Effective Repository Date:2018-02-28 09/07/2017 Fabi A Primary Fabi A Mittie [id number] S Insurance:MEDICARE ChristianDOB: [facility], PART A [facility] [id number] Tingley Hospital [address]Tzd: Number: Repository [id number] () Date:2012-02-01 09/07/2017 Secondary Fabi A Mitt[place] Insurance:AARPPolicy ChristianDOB: Community Number: [id number] Hospital [id number] Repository Date:4014-32-96De [address], [place] [address]PP: 09/07/2017 Tertiary NOT GIVENUNK [place] Insurance:SELF PAY [place] Number: Effective Repository Date:2017-09-07 08/29/2017 Fabi A Primary Fabi A [place] [id number] S Insurance:MEDICARE ChristianDOB: [facility], PART A [facility] [id number] Tingley Hospital [address]Dai: Number: Repository [id number] () Date:2017-08-25 08/29/2017 Secondary Fabi A [place] Insurance:AARPPolicy ChristianDOB: Community Number: [id number] Hospital [id number] Repository Date:4710-33-79X[address], [place] [address]PT: 08/29/2017 Tertiary NOT GIVENUNK [place] Insurance:SELF PAY [place] Number: Effective Repository Date:2017-08-25 08/23/2017 Fabi A Primary Fabi A Mittie [id number] S Insurance:MEDICARE ChristianDOB: [facility], PART A [facility] [id number] Tingley Hospital [address]Oad: Number: Repository [id number] () Date:2012-02-01 08/23/2017 Secondary Fabi A Mittie Insurance:AARPPolicy ChristianDOB: [facility] Number: [id number] Hospital [id number] Repository Date:1122-98-73[address]Krgvvdj, [place] [address]RR: 08/23/2017 Tertiary NOT GIVENUNK Mittie Insurance:SELF PAY [place] Number: Effective Repository Date:2017-08-23 08/21/2017 Fabi A Primary Fabi Hennessy [place] [id number] S Insurance:MEDICARE ChristianDOB: [facility], PART A [facility] [id number] Tingley Hospital [address]Guy: Number: Repository [id number] (HP) Date:2017-08-08 08/21/2017 Secondary Fabi A Mittie Insurance:AARPPolicy [facility] Department[facility]: Community Number: [id number] Hospital [id number] Repository Date:7352-16-01Av [address], [place] [address]AQ: 08/21/2017 Tertiary NOT GIVENUNK Mittie Insurance:SELF PAY [place] Number: Effective Repository Date:2017-08-08 08/08/2017 Fabi A Primary Fabi Hennessy [place] [id number] S Insurance:MEDICARE ChristianDOB: [facility], PART A [facility] [id number] Tingley Hospital [address]Tpt: Number: Repository [id number] (HP) Date:2012-02-01 08/08/2017 Secondary Fabi A [place] Insurance:AARPPolicy AureliaDOB: Community Number: [id number] Hospital [id number] Repository Date:8934-81-48Tx [address], [place] [address]JC: 08/08/2017 Tertiary NOT GIVENUNK [place] Insurance:SELF PAY [place] Number: Effective Repository Date:2017-08-08
== END ==
PROVIDERS: Family Provider Family Medicine; PCP Family Medicine; Referring Provider Nurse Practitioner Family; Visit Provider Nurse Practitioner Family
DX: R06.09 Other forms of dyspnea (principal)
CPT/HCPCS: 0399T; 93306

== ENCOUNTER → 2018-06-14 14:38 | Outpatient (CLI) | payer MEDICARE, OTHER, SELFPAY ==
[2018-06-04 09:51] VITALS: BMI 27.7
--- NOTE | 2018-06-14 14:40 | EKGRS_ITS ---
Test Reason : SOB Blood Pressure : / mmHG Vent. Rate : 055 BPM Atrial Rate : 055 BPM P-R Int : 166 ms QRS Dur : 084 ms QT Int : 416 ms P-R-T Axes : 040 -35 015 degrees QTc Int : 397 ms Sinus bradycardia Left axis deviation Low voltage QRS Abnormal ECG Confirmed by VERENICE VARGAS, TREMAYNE ([id number]), editor map BRANT ALDANA ([id number]) on 06/15/2018 9:06:40 AM Referred By: Chela Salgado Confirmed By:TREMAYNE CALDERA MD
--- OUTSIDE RECORDS SUMMARY | 2018-07-31 11:58 | XMS RPT_ITS ---
:1945 Author Organization OHIP Support Name Relationship Address Phone DENILSON MOSES Unavailable [address] + [place] [address] R Unavailable Unavailable Unavailable HINDUISMDENILSON Unavailable [address] + [place] [address] R Unavailable Unavailable Unavailable DENILSON MOSES Unavailable [address] + [place] [address] R Unavailable Unavailable Unavailable DENILSON MOSES Unavailable [address] + [place] [address] R Unavailable Unavailable Unavailable DENILSON MOSES Unavailable [address] + [place] [address] R Unavailable Unavailable Unavailable DENILSON MOSES Unavailable [address] + [place] [address] R Unavailable Unavailable Unavailable DENILSON MOSES Unavailable [address] + [place] [address] R Unavailable Unavailable Unavailable DENILSON MOSES Unavailable [address] + [place] [address] R Unavailable Unavailable Unavailable DENILSON MOSES Unavailable [address] + [place] [address] R Unavailable Unavailable Unavailable DENILSON MOSES Unavailable [address] + [place] [address] R Unavailable Unavailable Unavailable DENILSON MOSES Unavailable [address] + [place] [address] R Unavailable Unavailable Unavailable DENILSON MOSES Unavailable [address] + [place] [address] R Unavailable Unavailable Unavailable DENILSON MOSES Unavailable [address] + [place] [address] DENILSON MOSES Unavailable [address] + [place] [address] DENILSON MSOES Unavailable [address] + [place] [address] DENILSON MOSES Unavailable [address] + [place] [address] DENILSON MOSES Unavailable [address] + [place] [address] R Unavailable Unavailable Unavailable DENILSON MOSES Unavailable [address] + [place] [address] R Unavailable Unavailable Unavailable DENILSON MOSES Unavailable [address] + [place] [address] R Unavailable Unavailable Unavailable DENILSON MOSES Unavailable [address] + [place] [address] R Unavailable Unavailable Unavailable DENILSON MOSES Unavailable [address] + [place] [address] R Unavailable Unavailable Unavailable DENILSON MOSES Unavailable [address] + [place] [address] R Unavailable Unavailable Unavailable Care Team Providers Name Role Phone CHELA SUAREZ CNP Attending Unavailable KRISTIE DO, SAEID D Primary Care Unavailable KRISTIE DO, SAEID D Attending Unavailable KRISTIE DO, SAEID D Primary Care Unavailable Damian, Chela Attending Unavailable Damian, Chela Referring Unavailable Walnut Shade, Saeid Primary Care Unavailable Felix Bob Attending Unavailable Damian, Chela Referring Unavailable PraEber menjivar Attending Unavailable [place]nut Shade, Saeid Primary Care Unavailable Eber Conn Consulting Unavailable Damian, Chela Attending Unavailable Kristie, Saeid Referring Unavailable [place] Shade, Saeid Primary Care Unavailable Eber Conn Consulting Unavailable Damian, Chela Attending Unavailable Kristie, Saeid Referring Unavailable Kristie, Saeid Primary Care Unavailable PraEber menjivar Consulting Unavailable Damian, Chela Attending Unavailable Walnut Shade, Saeid Referring Unavailable Walnut Shade, Saeid Primary Care Unavailable PraEber menjivar Consulting Unavailable Damian, Chela Attending Unavailable Damian, Chela Referring Unavailable Kristie, Saeid Primary Care Unavailable PraEber menjivar Attending Unavailable Kristie, Saeid Referring Unavailable Kristie, Saeid Primary Care Unavailable Prah, Eber Consulting Unavailable Phi Hidalgo Attending Unavailable Phi Hidalgo Referring Unavailable Kristie, Saeid Primary Care Unavailable Phi Hidalgo Attending Unavailable Walnut Shade, Saeid Referring Unavailable Eber Conn Attending Unavailable Eber Conn Referring Unavailable [place]nut Shade, Saeid Primary Care Unavailable Josseline Case Attending Unavailable Saeid Flowers Referring Unavailable Janes Sinha Attending Unavailable Damian, Chela Referring Unavailable Josseline Case Attending Unavailable Kristie, Saeid Referring Unavailable Damian, Chela Attending Unavailable Kristie, Saeid Primary Care Unavailable Eber Conn Consulting Unavailable Eber Conn Attending Unavailable Kristie, Saeid Primary Care Unavailable Saeid Flowers Referring Unavailable Phi Hidalgo Attending Unavailable Phi Hidalgo Referring Unavailable Kristie, Saeid Primary Care Unavailable Damian, Chela Attending Unavailable Damian, Chela Referring Unavailable Kristie, Saeid Primary Care Unavailable PROBLEMS PROBLEMS DATE TYPE CONDITION / CODE ATTENDING STATUS SOURCE 07/10/2018 Unknown R06.09 - Other forms Phi Hidalgo [facility] of dyspnea / Community R06.09(ICD-10) Hospital Repository 07/10/2018 Unknown R93.1 - Abnormal Phi Hidalgo [facility] findings on diagnostic Community imaging of heart and Hospital coronary circulation / Repository R93.1(ICD-10) 07/10/2018 Unknown I34.0 - Nonrheumatic Phi Hidalgo [facility] mitral (valve) Community insufficiency / Hospital I34.0(ICD-10) Repository 07/10/2018 Unknown I36.1 - Nonrheumatic Phi Hidalgo [facility] tricuspid (valve) Community insufficiency / Hospital I36.1(ICD-10) Repository 07/10/2018 Unknown I37.1 - Nonrheumatic Phi Hidalgo [facility] pulmonary valve Community insufficiency / Hospital I37.1(ICD-10) Repository 07/10/2018 Unknown E78.5 - Phi Hidalgo [facility] Hyperlipidemia, Community unspecified / Hospital E78.5(ICD-10) Repository 06/18/2018 Unknown C50.411 - Malignant Damian, [facility] neoplasm of Chela Community upper-outer quadrant Hospital of right female breast Repository / C50.411(ICD-10) 06/25/2018 Unknown R00.1 - Bradycardia, Lisbeth, Snyder [facility] unspecified / Community R00.1(ICD-10) Hospital Repository 06/25/2018 Unknown R94.31 - Abnormal Lisbeth, Felix [facility] electrocardiogram Community [ECG] [EKG] / Hospital R94.31(ICD-10) Repository 07/04/2018 Unknown Z79.899 - Other long [place], [facility] term (current) drug Janes Community therapy / Hospital Z79.899(ICD-10) Repository 06/04/2018 Unknown C50.412 - Malignant Damian, [facility] neoplasm of Chela Replaced By [facility] upper-outer quadrant Hospital of left female breast Repository / C50.412(ICD-10) 06/04/2018 Unknown Z17.0 - Estrogen Damian, [facility] receptor positive [facility] status [ER+] / Hospital Z17.0(ICD-10) Repository 06/04/2018 Unknown M85.80 - Other Damian, [facility] specified disorders of [facility] bone density and Hospital structure, unspecified Repository site / M85.80(ICD-10) 03/13/2018 Unknown Z85.3 - Personal Damian, [facility] history of malignant [facility] neoplasm of breast / Hospital Z85.3(ICD-10) Repository 03/13/2018 Unknown Z12.31 - Encounter for Damian, [facility] screening mammogram [facility] for malignant neoplasm Hospital of breast / Repository Z12.31(ICD-10) 03/13/2018 Unknown Z13.820 - Encounter Damian, [facility] for screening for [facility] osteoporosis / Hospital Z13.820(ICD-10) Repository 08/21/2017 Unknown R10.32 - Left lower Damian, [facility] quadrant pain / [place] Community R10.32(ICD-10) Hospital Repository 08/21/2017 Unknown R19.7 - Diarrhea, Damian, [facility] unspecified / [place] Community R19.7(ICD-10) Hospital Repository 08/08/2017 Unknown Z79.811 - buttermaker continuous churn Damian, [facility] (current) use of [facility] aromatase inhibitors / Hospital Z79.811(ICD-10) Repository PROCEDURES PROCEDURES No Procedure Records FoundRESULTS RESULTS CARDIOLOGY VISIT Observed: 07/13/2018 Status: F Source: [facility] REPORT 3:00 PM [facility] REPOSITORY [facility] [address] [place] [address] OFFICE VISIT Date of Service: 07/10/18 MR#: [id number] Acct: [id number] Name: FABI MOSES Rep #: [id number] : 1945 Provider: Phi Hidalgo MD Age/Sex: 72/F Location: [facility] Status: Signed HPI [facility] Chief Complaint: Review EKG and echo Details: FABI MOSES, is a 72 F who presents to the office today for Intake Vital Signs07/10/18 Body Mass Index (BMI) 27.8 07/10/18 Height 5 ft 8.5 in 07/10/18 Weight: 185 lb 07/10/18 Body Mass Index (BMI) 27.7 07/10/18 Blood Pressure 122/70 H 07/10/18 Blood Pressure Location Lt brachial Intake Visit Reasons: AYALA, ABN EKG AND ECHO ([facility]) Engineer/Conductor Required: No Accompanied by: Is patient in [...] cream % TOPICAL 06/21/18 [History Confirmed 07/10/18] [facility] Medical History Hyperlipidemia (Chronic) Nonrheumatic tricuspid (valve) [...] at home: Yes 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 Signature: Date (if applicable) CC: Saeid Flowers DO LIVER PROFILE Collected: 07/11/2018 Status: F Source: [facility] 9:12 AM [facility] REPOSITORY TYPE CODE TESTS RESULT OUT OF [...] 0.15 Performed By: #### L500.3400, L500.4100 #### [facility] [address] [place], [place], [id number] LIPID PROFILE Collected: 07/11/2018 Status: F Source: [place] 9:12 AM [facility] REPOSITORY TYPE CODE TESTS RESULT OUT OF [...] 21 Performed By: #### L500.3400, L500.4100 #### [facility] [address] [place], [place], [id number] CARDIOLOGY VISIT Observed: 07/10/2018 Status: F Source: [facility] REPORT 2:27 PM [facility] 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 [place] [address] OFFICE VISIT Date of Service: 07/10/18 MR#: [id number] Acct: [id number] Name: FABI MOSES Rep #: [id number] : 1945 Provider: Phi Hidalgo MD Age/Sex: 72/F Location: [facility] Status: Signed HPI HPI Chief Complaint: Review EKG and echo Details: FABI MOSES, is a 72 F who presents to the office today for Intake Vital Signs07/10/18 Body Mass Index (BMI) 27.8 Intake Visit Reasons: AYALA, ABN EKG AND ECHO ([facility]) Allergies No Known Allergies Allergy (Verified 07/09/18 [...] at home: Yes 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 Const: Negative for fatigue, weakness, [...] Date (if applicable) CC: Saeid Flowers DO FRUIT SORTER OFFICE VISIT Observed: 07/09/2018 Status: F Source: [facility] REPORT 2:25 PM [facility] REPOSITORY [facility] [address] [place] [address] OFFICE VISIT Date of Service: 07/09/18 MR#: [id number] Acct: [id number] Name: FABI MOSES Rep #: [id number] : 1945 Provider: CHRIS Case Age/Sex: 72/F [place] [facility] Status: Signed Intake Vital Signs07/09/18 Height 5 ft 9 in 07/09/18 Weight: 186 lb 07/09/18 Body Mass Index (BMI) 27.4 07/09/18 Blood Pressure 146/96 H Intake Visit Reasons: 2-3 week follow up per Engineer/Conductor Required: No Is patient in pain?: No [...] menopausal: Yes Patient : No : No [facility] Medical History Nonrheumatic tricuspid (valve) insufficiency (Chronic) [...] at home: Yes 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 States not sure if improved as went to [place] for one week and forgot medication. She denies itching. Noted elevated BP and sees cardiology tomorrow. Denies headache, vision changes Pregancy History 1 Elective abortions Hx Para 1 Spontaneous abortions Past Pregnancies Del. DatName GA/We[facility]Outcome [facility] Goldberg LgAnesthesDel LocaProviderFOB e ht en [...] LION Cosigner Signature: Date (if applicable) CC: FRUIT SORTER OFFICE VISIT Observed: 06/21/2018 Status: F Source: ONO[facility] REPORT 9:57 AM [facility] REPOSITORY [facility] [address] [place] [address]. [address] [place], [place] [id number] OFFICE VISIT Date of Service: 06/21/18 MR#: [id number] Acct: [id number] Name: FABI MOSES Rep #: [id number] : 1945 Provider: CHRIS Case Age/Sex: 72/F [place] [facility] Status: Signed Intake Vital Signs06/21/18 Body Mass Index (BMI) 27.8 06/21/18 Height 5 ft 9 in 06/21/18 Weight: 186 lb 8 oz 06/21/18 Body Mass Index (BMI) 27.5 06/21/18 Blood Pressure 128/84 H Intake Visit Reasons: NEW Lichen Sclerosis Engineer/Conductor Required: No Is patient in pain?: No [...] follow up lichen sclerosis. First diagnosed per manager lab several years ago on her breast then in vaginal area. She uses halog in vaseline prn. Pregancy History 1 Elective abortions Hx Para 1 Spontaneous abortions Past Pregnancies Del. DatName GA/WeeksOutcome Route [facility] JaswantgInkanu Goldberg LgAnesthesDel LocaProviderFOB e ht en [...] VISIT REPORT Observed: 06/18/2018 Status: F Source: [place] 3:56 PM [facility] REPOSITORY [facility] [address] [place], [place] [address], [place] [address] OFFICE VISIT Date of Service: 06/18/18 1053 MR#: [id number] Acct: [id number] Name: FABI MOSES Rep #: [id number] : 1945 From: Chela LION Age/Sex: 72/F Location: [facility] Status: Signed Subjective - Date of Service Date of Service:: 06/18/18 - Chief Complaint Review EKG and echo - History of Present Illness 72 y.o.woman found to have an abnormal mammogram. She had biopsy on 04/30/2015, which showed invasive ductal carcinoma, ER/NM positive, HER2 negative. She had right breast [...] agreement with aforementioned plan Chela Salgado, MSN, DIE CUT OPERATOR-C, AOCNP Medications: Prescriptions This Visit Medication Instructions [...] Acute (5) Lichen sclerosus Status: Acute 06/18/18 3726 <Electronically signed by Chela LION> Date Chela LION Cosigner Signature: Date (if applicable) CC: 12 LEAD EKG W/ Observed: 06/15/2018 Status: F Source: [facility] RHYTHM STRIP 9:07 AM [facility] REPOSITORY [facility] Cardiovascular Services [address] [place] [address] 12 Lead EKG with Rhythm Strip 06/14/18 1453 MR#: [id number] Acct: [id number] Name: FABI MOSES Gerhard Rep #: [id number] : 1945 72 From: Felix Bob MD [...] ECG Confirmed by FELIX BOB MD ([id number]), content editor BRANT ALDANA ([id number]) on 06/15/2018 9:06:40 AM Referred By: Chela Salgado Confirmed By:FELIX BOB MD 06/15/18 09 Date Felix Bob MD CC: Saeid Flowers DO; Chela Salgado NP Signed ONC ECHOCARDIOGRAM Observed: 06/12/2018 Status: F Source: [facility] 5:48 PM [facility] REPOSITORY [facility] Cardiovascular Services [address] [place] [address] ONC Echo Complete 06/12/18 1553 MR#: [id number] Acct: [id number] Name: FABI MOSES Rep #: [id number] : 1945 72 From: Janes Sinha MD Attending Dr: Chela Salgado NP Status: REG CLI Ordering Dr: Chela Salgado SENIOR PHP WEB DEVELOPER-C Date: 06/12/18 Location: [facility] Sex: F C Admitted: Reason For Study: [...] MD CC: Saeid Flowers DO; Chela Salgado SENIOR PHP WEB DEVELOPER Date Dictated: 06/12/18 1553 Date Transcribed: 06/12/18 1747 Shipping Packer: Signed ONCOLOGY VISIT REPORT Observed: 06/04/2018 Status: F Source: [facility]RE 12:15 PM [facility] REPOSITORY [facility] [place] [address] OFFICE VISIT Date of Service: 06/04/18 0956 MR#: [id number] Acct: [id number] Name: FABI MOSES Rep #: [id number] : 1945 From: Chela Salgado SENIOR PHP WEB DEVELOPER-C Age/Sex: 72/F Location: [facility] Status: Signed Subjective - Date of Service Date of Service:: 06/04/18 - Chief Complaint breast cancer management - History of Present Illness 72 y.o.woman found to have an abnormal mammogram. She had biopsy on 04/30/2015, which showed invasive ductal carcinoma, ER/NM positive, HER2 negative. She had right breast [...] scan and bilat screening mammogram 05/21/18 at [facility] and comes in to review results. [...] possibly proceed with Prolia. Chela Salgado, MSN, DIE CUT OPERATOR-C, AOCNP Medications: Prescriptions This Visit Medication Instructions [...] Status: Acute 06/04/18 1215 <Electronically signed by Chela LION> Date Chela JAIMESC Cosigner Signature: Date (if applicable) CC: VITAMIN D,25 HYDROXY Collected: 06/04/2018 Status: F Source: [facility] 9:30 AM [facility] REPOSITORY TYPE CODE TESTS RESULT OUT OF RANGE REFERENCE UNITS LAB L506.1000 29.95-100.01 ng/mL Normal Vitamin D 33.6 25-OH Result Comment: Vitamin D 25(OH) Status Range Deficiency <20 ng/mL (50nmol/L) Insuffciency 20 - 30 ng/mL (50 - 75 nmol/L) Sufficiency 30 - 100 ng/mL (75 - 250 nmol/L) Toxicity >100 ng/mL (>250 nmol/L) Performed By: #### L506.1000 #### [facility] [address] [place], [address] CBC W/DIFF, AUTOMATED Collected: 06/04/2018 Status: F Source: [place] 9:28 AM [facility] REPOSITORY Order Comment: Reason for Laboratory Test [...] Lymph 1.27 Performed By: #### L100.0100 #### [facility] [address] [place], [address] COMPREHENSIVE METABOLIC Collected: 06/04/2018 Status: F Source: [facility] 9:28 AM [facility] REPOSITORY Order Comment: Reason for Laboratory Test [...] GAP 8 Performed By: #### L500.4050 #### [facility] [address] [place] [address]. [place], [address] BONE DENSITY DEXA Observed: 05/21/2018 Status: F Source: [facility] 9:00 AM [facility] REPOSITORY ORIGINAL [...] PM ALT/SGPT Collected: 05/21/2018 Status: F Source: [facility] 8:41 AM [facility] REPOSITORY TYPE CODE TESTS RESULT OUT OF RANGE REFERENCE UNITS LAB ALT(LOINC) 10-35 U/L ALT/SGPT 21 Performed By: #### ALT, LIPID #### [address] [address] LIPID Collected: 05/21/2018 Status: F Source: [facility] 8:41 AM [facility] REPOSITORY TYPE CODE TESTS RESULT OUT OF [...] 102 Performed By: #### ALT, LIPID #### [facility] [address] [place] [address] [place] MAMMOGRAM SCREENING Observed: 05/21/2018 Status: F Source: [facility] BILATERAL W/IVONNE 8:30 AM [facility] REPOSITORY ORIGINAL FROM: [facility] [address] [place], [place] [address] PROCEDURE FOR: FABI MOSES [address] [place] [address] Home: PID#: [id number] Exam#: [id number] : 1945 Age: 72 TO: CHELA SALGADO SEO STRATEGIST [address] [place] [address] #[id number] BILATERAL DIGITAL SCREENING MAMMOGRAM 3D/2D WITH CAD WITH MEDIOLATERAL OBLIQUE CRANIOCAUDAL: 05/21/2018 Comparison is made to exams dated: 05/19/2016 mammogram and 05/19/2017 mammogram - [facility]. The tissue of both breasts is [...] agree with the findings and interpretation. mónica Brwon MD, M.D./reny:05/21/2018 15:42:14 copy to: SAEID FLOWERS DO, ph: [phone], fax: [phone] Bankruptcy Law Specialist(s): RT SHANNAN (R)(M), [facility] letter sent: Normal BI-RADS 1&2 Mammogram BI-RADS: 2 Benign ONCOLOGY VISIT REPORT Observed: 02/28/2018 Status: F Source: [facility] 4:00 PM [facility] REPOSITORY [facility] [address] [place] [address] OFFICE VISIT Date of Service: 02/28/18 1115 MR#: [id number] Acct: [id number] Name: HINDUISMFABI Rep #: [id number] : 1945 From: Chela Salgado SENIOR PHP WEB DEVELOPER-C Age/Sex: 72/F Location: [facility] Status: Signed Subjective - Date of Service Date of Service:: 02/28/18 - Chief Complaint breast cancer management - History of Present Illness 72 y.o.woman found to have an abnormal mammogram. She had biopsy on 04/30/2015, which showed invasive ductal carcinoma, ER/NM positive, HER2 negative. She had right breast [...] Reports: Arthralgia - Left foot following with engineer of system development. Denies: Back pain, Myalgia Skin: Denies: Rash, [...] scan results, no labs. Chela Salgado, MSN, DIE CUT OPERATOR-C, AOCNP Medications: Prescriptions This Visit Medication Instructions [...] 02/28/2018 Status: F Source: [facility] 10:35 AM [facility] REPOSITORY Order Comment: Reason for Laboratory Test [...] Lymph 1.26 Performed By: #### L100.0100 #### [facility] [address] [place], [place], [address] COMPREHENSIVE METABOLIC Collected: 02/28/2018 Status: F Source: [facility] 10:35 AM [facility] REPOSITORY Order Comment: Reason for Laboratory Test [...] GAP 7 Performed By: #### L500.4050 #### [facility] [address] [facility] [place], [address] ONCOLOGY VISIT REPORT Observed: 09/07/2017 Status: F Source: [place] 4:01 PM [facility] REPOSITORY [facility] [address] [place] [address]. [place] [address] OFFICE VISIT Date of Service: 09/07/17 1523 MR#: [id number] Acct: [id number] Name: HINDUISMFABI Gerhard Rep #: [id number] : 1945 From: Eber Conn MD Age/Sex: 72/F Location: [facility] Status: Signed Subjective - Date of Service Date of Service:: 09/07/17 - Chief Complaint F/u for bone scan results. - History of Present Illness 71y.o.woman found to have an abnormal mammogram. She had biopsy on 04/30/2015, which showed invasive ductal carcinoma, ER/NM positive, HER2 negative. She had right breast [...] Chronic Code Visit Office Visits / Consults: [id number] OV L3 Est 09/07/17 1601 <Electronically signed by Eber Conn MD> Date Eber Conn MD Cosigner Signature: Date (if applicable) CC: BONE SCAN WHOLE Observed: 08/29/2017 Status: F Source: [facility] BODY 8:29 AM [facility] REPOSITORY [facility] Imaging Services [address] [place] [address] Bone Scan Whole Body MR#: [id number] Acct: [id number] Name: FABI MOSES Rep #: [id number] : 1945 F 71 From: Rishabh Max DO PCP: Saeid Flowers DO Status: REG CLI Study: Bone Scan Whole Body Date of Exam: 08/29/17 Exam# [id number] Ordering Dr: Eber Conn MD CLINICAL: 71-year-old [...] CC: Saeid Flowers DO; Eber Conn MD Shipping Packer: Signed ABDOMEN/PELVIS WITH Observed: 08/21/2017 Status: F Source: [facility] CONTRAST 4:50 PM [facility] REPOSITORY [facility] Imaging Services [address] [place] [address] Abdomen/Pelvis WITH Contrast MR#: [id number] Acct: [id number] Name: FABI MOSES Rep #: [id number] : 1945 F 71 From: Alexandre Simeon MD PCP: Saeid Flowers DO Status: REG CLI Study: Abdomen/Pelvis WITH Contrast Date of Exam: 08/21/17 Exam# [id number] Ordering Dr: Chela Salgado SENIOR PHP WEB DEVELOPER-Chrystal STUDY: CT ABDOMEN AND PELVIS WITH CONTRAST [...] Alexandre Simeon MD at 12:43 EST Tel [phone], Service support , CC: Saeid Salgado NP Shipping Packer: Signed ALLERGIES ALLERGIES DATE TYPE / CODE NAME / CODE REACTION SEVERITY SOURCE 07/10/2018 Drug No Known [facility] [facility] Allergy/4160 Allergies/F00 Hospital 33700(SNOMED [id number](RXNOR Repository CT) M) ENCOUNTERS ENCOUNTERS ADMIT/DISCHARGE ACCOUNT NUMBER ADMITTING ENCOUNTER LOCATION SOURCE CLASS 07/19/2018 [id number] Ambulatory [facility] ding:CVS Repository 07/11/2018 [id number] Ambulatory [facility] ding:LAB Repository 07/10/2018/07/10/19 [id number] Ambulatory BMSBuilding: [place] 19 BMS.[facility] Repository 07/09/2018/07/09/19 [id number] Ambulatory BMSBuilding: [place] 19 BMS.[facility] Repository 06/21/2018/06/21/20 [id number] Ambulatory BMSBuilding: [place] 18 BMS.[facility] Repository 06/18/2018 [id number] Ambulatory BMSBuilding: [place] BMS.[facility] Repository 06/18/2018 [id number] Ambulatory [facility] ding:OMD Repository 06/14/2018 [id number] Ambulatory [facility] ding:CVS Repository 06/14/2018 [id number] Ambulatory BMSBuilding: [facility] Repository 06/12/2018 [id number] Ambulatory [facility] ding:CVS Repository 06/12/2018 [id number] Ambulatory BMSBuilding: [facility] Repository 06/04/2018 [id number] Ambulatory BMSBuilding: [place] BMS.[facility] Repository 05/21/2018/05/21/20 [id number] Ambulatory BBuilding:RA [address] Repository 05/21/2018/05/21/20 [id number] Ambulatory BBuilding:OL [address] Repository 02/28/2018 [id number] Ambulatory BMSBuilding: [place] BMS.CF.[facility] Repository 09/07/2017 [id number] Ambulatory BMSBuilding: [place] BMS.[facility] Repository 08/29/2017 [id number] Ambulatory [facility] ding:NM Repository 08/23/2017 [id number] Ambulatory BMSBuilding: [place] BMS.[facility] Repository 08/21/2017 [id number] Ambulatory [facility] ding:CT Repository 08/08/2017 [id number] Ambulatory BMSBuilding: [place] BMS.[facility] Repository PAYERS PAYERS ENCOUNTER GUARANTOR PAYER SUBSCRIBER SOURCE 07/19/2018 FABI A Primary FABI Gerhard Adhikari [id number] S Insurance:MEDICARE CHRISTIANDOB: [facility], PART A [facility] [id number] [address]Tvr: Number: Repository [id number] () Date:2018-07-10 07/19/2018 Secondary FABI A [place] Insurance:AARPPolicy CHRISTIANDOB: Replaced By [facility] Number: [id number] Hospital [id number] Repository Date:1462-09-40F[address], [place] [address]MU: 07/19/2018 Tertiary NOT GIVENUNK [place] Insurance:SELF PAY [facility] Number: Effective Repository Date:2018-07-10 07/11/2018 FABI A Primary FABI A [place] [id number] S Insurance:MEDICARE CHRISTIANDOB: Community [place], PART A olic [id number] [place] [address]Qqi: Number: Repository [id number] (HP) Date:2018-07-11 07/11/2018 Secondary FABI A [place] Insurance:AARPPolicy CHRISTIANDOB: Community Number: [id number] Hospital [id number] Repository Date:4340-98-99Fy [place] [address], [place] [address]OF: 07/11/2018 Tertiary NOT GIVENUNK [place] Insurance:SELF PAY [facility] Number: Effective Repository Date:2018-07-11 07/10/2018 FABI A Primary FABI A [place] [id number] S Insurance:MEDICARE CHRISTIANDOB: [facility], PART A [facility] [id number] [place] [address]Sdc: Number: Repository [id number] () Date:2018-06-18 07/10/2018 Secondary FABI A [place] Insurance:AARPPolicy CHRISTIANDOB: Community Number: [id number] Hospital [id number] Repository Date:5456-90-74Lk [place] [address], [place] [address]FV: 07/10/2018 Tertiary NOT GIVENUNK [place] Insurance:SELF PAY [facility] Number: Effective Repository Date:2018-07-10 07/09/2018 FABI A Primary FABI A [place] [id number] S Insurance:MEDICARE CHRISTIANDOB: Replaced By [facility] [place], PART A [facility] [id number] [place] [address]Cbh: Number: Repository [id number] (HP) Date:2018-06-21 07/09/2018 Secondary FABI A [place] Insurance:AARPPolicy CHRISTIANDOB: Community Number: [id number] Hospital [id number] Repository Date:2840-00-63Sy [address], [place] [address]AF: 07/09/2018 Tertiary NOT GIVENUNK [place] Insurance:SELF PAY [facility] Number: Effective Repository Date:2018-07-09 06/21/2018 FABI A Primary FABI A [place] [id number] S Insurance:MEDICARE CHRISTIANDOB: [facility], PART A [facility] [id number] [facility]ers [facility] [address]Dvh: Number: Repository [id number] () Date:2018-06-18 06/21/2018 Secondary FABI A [place] Insurance:AARPPolicy CHRISTIANDOB: Community Number: [id number] Hospital [id number] Repository Date:6125-07-85[address], [place] [address]PQ: 06/21/2018 Tertiary NOT GIVENUNK [place] Insurance:SELF PAY [facility] Number: Effective Repository Date:2018-06-21 06/18/2018 FABI A Primary FABI A [place] [id number] S Insurance:MEDICARE CHRISTIANDOB: [facility], PART A [facility] [id number] Corners Regional [facility] [address]Uqa: Number: Repository [id number] () Date:2012-02-01 06/18/2018 Secondary FABI A [place] Insurance:AARPPolicy CHRISTIANDOB: Community Number: [id number] Hospital [id number] Repository Date:1602-95-59Qu [address], [place] [address]OJ: 06/18/2018 Tertiary NOT GIVENUNK [place] Insurance:SELF PAY [facility] Number: Effective Repository Date:2018-06-18 06/18/2018 FABI A Primary FABI A [place] [id number] S Insurance:MEDICARE CHRISTIANDOB: [facility], PART A [facility] [id number] Corners Regional Health [facility] [address]Fdw: Number: Repository [id number] () Date:2012-02-01 06/18/2018 Secondary FABI A [place] Insurance:AARPPolicy CHRISTIANDOB: Community Number: [id number] Hospital [id number] Repository Date:3401-83-99Er [address], [place] [address]RF: 06/18/2018 Tertiary NOT GIVENUNK [place] Insurance:SELF PAY [facility] Number: Effective Repository Date:2016-09-22 06/14/2018 FABI A Primary FABI A [place] [id number] S Insurance:MEDICARE CHRISTIANDOB: [facility], PART A [facility] [id number] Corners Regional Health Center [address]Ten: Number: Repository [id number] () Date:2018-06-14 06/14/2018 Secondary FABI A [place] Insurance:AARPPolicy CHRISTIANDOB: Community Number: [id number] Hospital [id number] Repository Date:4312-19-89Sq [address], [place] [address]LV: 06/14/2018 Tertiary NOT GIVENUNK [place] Insurance:SELF PAY [facility] Number: Effective Repository Date:2018-06-14 06/14/2018 FABI A Primary FABI A [place] [id number] S Insurance:MEDICARE CHRISTIANDOB: [facility], PART A [facility] [id number] Corners Regional Health Center [address]Esf: Number: Repository [id number] () Date:2018-06-14 06/14/2018 Secondary FABI A [place] Insurance:AARPPolicy CHRISTIANDOB: Community Number: [id number] Hospital [id number] Repository Date:9310-77-42K[address], [place] [address]NY: 06/14/2018 Tertiary NOT GIVENUNK [place] Insurance:SELF PAY [facility] Number: Effective Repository Date:2018-06-14 06/12/2018 FABI A Primary FABI Hennessy [place] [id number] S Insurance:MEDICARE CHRISTIANDOB: [facility], PART A [facility] [id number] Corners Regional Health Center [address]Kje: Number: Repository [id number] (HP) Date:2018-06-04 06/12/2018 Secondary FABI A [place] Insurance:AARPPolicy [facility]: [facility] By [facility] Number: [id number] Hospital [id number] Repository Date:9773-41-19Ay [address], [place] [address]KK: 06/12/2018 Tertiary NOT GIVENUNK [place] Insurance:SELF PAY [facility] Number: Effective Repository Date:2018-06-04 06/12/2018 FABI A Primary FABI A [place] [id number] S Insurance:MEDICARE CHRISTIANDOB: [facility], PART A [facility] [id number] Corners Regional Health Center [address]Gyc: Number: Repository [id number] () Date:2018-06-04 06/12/2018 Secondary FABI A [place] Insurance:AARPPolicy CHRISTIANDOB: Community Number: [id number] Hospital [id number] Repository Date:4857-64-14Wc [address], [place] [address]QW: 06/12/2018 Tertiary NOT GIVENUNK [place] Insurance:SELF PAY [facility] Number: Effective Repository Date:2018-06-12 06/04/2018 FABI A Primary FABI A [place] [id number] S Insurance:MEDICARE CHRISTIANDOB: [facility], PART A [facility] [id number] Corners Regional Health Center [address]Eul: Number: Repository [id number] () Date:2012-02-01 06/04/2018 Secondary FABI A [place] Insurance:AARPPolicy CHRISTIANDOB: Replaced By [facility] Number: [id number] [facility] [id number] Repository Date:4597-20-67Qi [address], [place] [address]CH: 06/04/2018 Tertiary NOT GIVENUNK [place] Insurance:SELF PAY Replaced By [facility] Number: Effective Repository Date:2018-06-04 05/21/2018 FABI A Primary FABI eGrhard [facility]: Insurance:MEDICARE CHRISTIANDOB: Foundation S PART B INSCOPolicy [id number] Repository MAIN [facility], Number: [place] [id number] [place] [address]~FRANCINERIS Date:2018-02-28Tel: ([phone]) [email or web address]@[email or web address] [phone] 4 T.NETTel: (330) Name:[facility] () Administrators 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 ()Tel: [phone]) 677568Lfvcpot, [place] 000-0000 () [address]KL: 02/28/2018 Fabi A Primary Fabi A [place] [id number] S Insurance:MEDICARE ChristianDOB: [facility], PART A [facility] [id number] Corners Regional Health Center [address]Ztl: Number: Repository [id number] () Date:2012-02-01 02/28/2018 Secondary Fabi A [place] Insurance:AARolic ChristianDOB: Replaced By [facility] Number: [id number] Hospital [id number] Repository Date:8541-40-63Rb [address], [place] [address]YN: 02/28/2018 Tertiary NOT GIVENUNK [place] Insurance:SELF PAY [facility] Number: Effective Repository Date:2018-02-28 09/07/2017 Fabi A Primary Fabi A [place] [id number] Insurance:MEDICARE ChristianDOB: [facility], PART A [facility] [id number] Corners Regional Health Center [address]Xun: Number: Repository [id number] () Date:2012-02-01 09/07/2017 Secondary Fabi A [place] Insurance:AARPPolicy ChristianDOB: Community Number: [id number] Hospital [id number] Repository Date:0713-51-46Br [address], [place] [address]BK: 09/07/2017 Tertiary NOT GIVENUNK [place] Insurance:SELF PAY [facility] Number: Effective Repository Date:2017-09-07 08/29/2017 Fabi A Primary Fabi A [place] [id number] S Insurance:MEDICARE ChristianDOB: [facility], PART A [facility] [id number] Corners Regional Health Center [address]Rfg: Number: Repository [id number] () Date:2017-08-25 08/29/2017 Secondary Fabi A [place] Insurance:AARPPolicy ChristianDOB: Community Number: [id number] Hospital [id number] Repository Date:6518-16-96Hv [address], [place] [address]HA: 08/29/2017 Tertiary NOT GIVENUNK [place] Insurance:SELF PAY [facility] Number: Effective Repository Date:2017-08-25 08/23/2017 Fabi A Primary Fabi A [place] [id number] Insurance:MEDICARE ChristianDOB: [facility], PART A [facility] [id number] Corners Regional Health Center [address]Fbu: Number: Repository [id number] () Date:2012-02-01 08/23/2017 Secondary Fabi A [place] Insurance:AARPPolicy ChristianDOB: Replaced By [facility] Number: [id number] Hospital [id number] Repository Date:1508-07-42Dk [address], [place] [address]DO: 08/23/2017 Tertiary NOT GIVENUNK [place] Insurance:SELF PAY [facility] Number: Effective Repository Date:2017-08-23 08/21/2017 Fabi A Primary Fabi Hennessy [place] [id number] S Insurance:MEDICARE ChristianDOB: [facility], PART A [facility] [id number] Corners Regional Health Center [address]Ksg: Number: Repository [id number] (HP) Date:2017-08-08 08/21/2017 Secondary Fabi A [place] Insurance:AARPPolicy [facility] Healthcare[facility]: Community Number: [id number] Hospital [id number] Repository Date:1639-29-52Ze [address]dx, [place] [address]HC: 08/21/2017 Tertiary NOT GIVENUNK [place] Insurance:SELF PAY [facility] Number: Effective Repository Date:2017-08-08 08/08/2017 Fabi A Primary Fabi Hennessy [place] [id number] S Insurance:MEDICARE ChristianDOB: [facility], PART A [facility] [id number] Corners Regional Health Center [address]Hif: Number: Repository [id number] (HP) Date:2012-02-01 08/08/2017 Secondary Fabi A [place] Insurance:AARPPolicy AureliaDOB: Community Number: [id number] Hospital [id number] Repository Date:6353-88-47Tv [address]Q[place]ilyr, [place] [address]OD: 08/08/2017 Tertiary NOT GIVENUNK [place] Insurance:SELF PAY [facility] Number: Effective Repository Date:2017-08-08
== END ==
PROVIDERS: Family Provider Family Medicine; PCP Family Medicine; Referring Provider Nurse Practitioner Family; Visit Provider Nurse Practitioner Family
DX: R06.09 Other forms of dyspnea (principal); Z85.3 Personal history of malignant neoplasm of breast
CPT/HCPCS: 93005

== ENCOUNTER → 2018-07-11 09:06 | Outpatient (CLI) | payer MEDICARE, OTHER, SELFPAY ==
[2018-07-10 14:27] VITALS: BMI 27.8
[2018-07-11 10:14] LABS: AST(SGOT) 17 U/L (15-37); Alanine Aminotransfer ALT/SGPT 20 U/L (13-56); Albumin, Serum 3.8 g/dL (3.2-5.0); Alkaline Phosphatase 76 U/L (45-117); Bilirubin, Direct 0.15 mg/dL (0.00-0.30); Cholesterol 175 mg/dL (200); Globulin 3.6 g/dL (2.2-4.2); High Density Lipoprotein 67 mg/dL; Protein, Total 7.4 g/dL (6.4-8.2); Triglycerides 104 mg/dL; Very Low Density Lipoprotein 21 mg/dL (5-40)
== END ==
PROVIDERS: Family Provider Family Medicine; PCP Family Medicine; Referring Provider Internal Medicine Cardiovascular Disease; Visit Provider Internal Medicine Cardiovascular Disease
DX: E78.5 Hyperlipidemia, unspecified (principal)
CPT/HCPCS: 36415; 80061; 80076

== ENCOUNTER → 2018-08-08 12:24 | Outpatient (CLI) | payer MEDICARE, OTHER, SELFPAY ==
[2018-07-10 13:58] VITALS: BMI 27.7
[2018-07-10 14:27] VITALS: BMI 27.8
--- NOTE | 2018-08-08 12:26 | STE_ITS ---
Reason For Study: DYSPNEA/SOB Stress Results Protocol: Stress Echocardiogram Maximum Predicted HR: 149 bpm Target HR: 127 bpm % Maximum Predicted HR: 101 % DurationHeart Rate Stage (mm:ss) (bpm) BP Comment BASELINE 63 148/88 LIT PROTOCOL- STAGE 1 3:00 129 128/84 LIT PROTOCOL- STAGE 2 3:00 150 134/90SOB RECOVERY 92 128/84 Stress Duration: 6:00 mm:ss Maximum Stress HR: 150 bpm Baseline Echocardiogram Findings The estimated ejection fraction is 65 %. Stress Echo Wall motion Data Resting WM Intermediate WM Stress WM Resting Wall Motion Wall Motion Stress No regional wall motion Anterio-Basal: Mildly abnormalities noted. hypokinetic. Mid-Anterior : Mildly hypokinetic. Mid-anteroseptal : Mildly hypokinetic. EKG Data Normal intervals are noted. The patient exercised according to the regular Lit protocol for a total duration of 6:02. The maximum heart rate attained was 150 beats per minute. This was 100% of maximum predicted heart rate. The patient exercised into stage 3 of the Lit protocol. During stress, there were no ST or T wave changes noted to suggest ischemia. No clinical angina was noted. No arrhythmias noted. Interpretation Summary The estimated ejection fraction is 65 %. Anterio-Basal: Mildly hypokinetic Mid-Anterior : Mildly hypokinetic Mid-anteroseptal : Mildly hypokinetic Abnormal, adequate treadmill echocardiogram. Positive for ischemia by echocardiographic criteria. The patient appeared to have mid anterior septal and lateral apical hypokinesis at peak exercise. No anginal symptoms noted. No arrhythmias noted. Appropriate blood pressure response to exercise. Test terminated due to attainment of target heart rate and dyspnea. Final LVEF of 45%. Ordering Physician: Phi Hidalgo Referring Physician: Phi Hidalgo Performed By: Letty Osuna, RDCS, RVT
== END ==
PROVIDERS: Family Provider Family Medicine; PCP Family Medicine; Referring Provider Internal Medicine Cardiovascular Disease; Visit Provider Internal Medicine Cardiovascular Disease
DX: R06.09 Other forms of dyspnea (principal); I34.0 Nonrheumatic mitral (valve) insufficiency; I36.1 Nonrheumatic tricuspid (valve) insufficiency; I37.1 Nonrheumatic pulmonary valve insufficiency; R93.1 Abnormal findings on diagnostic imaging of heart and coronary circulation
CPT/HCPCS: 93017; 93350

== ENCOUNTER 2018-08-17 06:49 | Day surgery (SDC) | payer MEDICARE, OTHER, SELFPAY ==
[2018-07-10 14:27] VITALS: BMI 27.8
--- NOTE | 2018-08-10 12:45 | RAD_ITS ---
HISTORY: PRE OP, ABN STRESS, AYALA EXAM:XR Chest 2 Views: COMPARISON: 07/14/2015 FINDINGS: Chronic mild elevation of the right hemidiaphragm. Normal heart size. No vascular congestion, pleural effusion, or acute pulmonary infiltration. No pneumothorax. The bony thorax appears intact. RAD/Chest PA and Lateral IMPRESSION: No active cardiopulmonary disease. at 3026 Reported and signed by: Jet Dumont MD Electronically Signed: Jet Dumont, at 4:28 EST Tel , Service support ,
[2018-08-10 13:11] VITALS: BMI 27.8
[2018-08-10 13:17] LABS: Hematocrit 41.6 % (37-47); Hemoglobin 13.1 g/dl (12.0-15.0); Mean Corp Hgb Conc 31.5 g/gl (32-36); Mean Corpuscular Hgb 28.7 pg (27.0-32.0); Mean Platelet Vol. 9.8 fl (6.2-12.0); Platelet Count 191 K/mm3 (150-450); RBC Distribution Width CV 13.5 % (11.6-14.6); RBC Distribution Width SD 44.1 fl (35.1-43.9); Red Blood Count 4.57 M/mm3 (4.2-5.4); White Blood Count 5.1 K/mm3 (4.4-11.0)
[2018-08-10 13:19] LABS: Scan Indicated on CBC? Y/N NO
[2018-08-10 13:31] LABS: International Normalized Ratio 1.1; Prothrombin Time (Protime)PT. 13.9 SECONDS (11.7-14.9)
[2018-08-10 13:32] LABS: Partial Thromboplast Time 30.1 Seconds (24.1-36.2)
[2018-08-10 13:51] LABS: Anion Gap 6 (5-15); BUN 16 mg/dL (7-18); Calcium,Total 9.3 mg/dL (8.5-10.1); Chloride 108 mmol/L (98-107); EST Glomerular Filtration Rate 58 mL/min (>60); Est Glom Filt Rate - Afr Amer 70 mL/min (>60); Glucose 80 mg/dL (74-106); Potassium 4.6 mmol/L (3.5-5.1); Sodium Level 141 mmol/L (136-145)
[2018-08-16 08:30] VITALS: BMI 27.3
--- NOTE | 2018-08-17 09:38 | CL.D_ITS ---
Patient Name: FABI MOSES Study Date: 08/17/2018 Performing: Phi Hidalgo MD Ht: 68.11 inches 173 cm : 1945 Wt: 187.39 lbs 85 kg Age: 72 Gender: female BSA: 1.99 PROCEDURE(S) PERFORMED AX82-IRM/COR/LV CLINICAL PROFILE AND INDICATIONS Indications: Evaluation for Exercise Clearance Heart Failure: None Stress/Imaging Stress Echocardiogram: Yes Result: Positive Low RiskStress Echocardiogram: Positiv e Low Risk Angina Classification Anginal Classification w/in 2 Weeks: No symptoms CAD Presentations: Other: Dyspnea on exertion Comorbidities/Risk Factors: Hypertension CONCLUSIONS Normal coronary arteries Normal LV size, wall motion,and systolic function Perserved Left Ventricular systolic function with normal EDP RECOMMENDATIONS D/c plavix; pulmonary consult for AYALA. Manual sheath removal. DESCRIPTION OF PROCEDURE The patient arrived to the procedure lab. The risks and benefits of the procedure as well as a full d escription of our services here and current unavailability of surgical backup were fully explained to the patient and/or their significant other prior to the catheterization. The Timeout was completed, verifying the correct patient and procedure. The patient's procedural site was prepped and draped in the usual fashion. Local anesthetic was given subcutaneously to right groin region with Lidocaine 2%. Using a modified Seldinger technique, arterial access was obtained via the right femoral artery, a 4 Fr sheath was inserted Left Coronary Artery selective angiography was performed in multiple views us ing a 4 Fr. JL5 catheter. Right Coronary Artery selective angiography was then performed in multiple views using a 4 Fr. 3DRC catheter. Left Ventriculography was performed in CAMPBELL projection using a 4 Fr . Pigtail catheter. LV to AO pullback pressures were then recorded.The arterial sheath was pulled and manual compression applied until hemostasis is achieved. CORONARY ANGIOGRAPHY DOMINANCE: Right Dominant LEFT HEART ASSESSMENT Left Ventricular Ejection Fraction: by LV Gram 65 % Normal LV wall motion Normal Left Ventricular systolic function Normal Left Ventricular systolic function LVEDP: 12 mmHg Normal Left Ventricular End Diastolic Pressure LEFT MAIN: Angiographically normal LEFT ANTERIOR DECENDING ARTERY: Angiographically normal CIRCUMFLEX ARTERY: Angiographically normal RIGHT CORONARY ARTERY: Angiographically normal COMPLICATIONS No Complications PROCEDURE MEDICATIONS Oxygen: 2 L/min via nasal cannula SUMMARY OF HEMODYNAMIC DATA Time AIR REST ECG 07:48:59 AO 152/71 (108) SA 09:27:03 LV 158/-23, 12 09:32:02 LV 162/-23, 12 09:32:08 LVp 167/-24, 15 09:32:11 AOp 157/65 (104) 09:32:16 Signed By Phi Hidalgo MD On 08/17/2018 9:37:36 AM Phi Hidalgo MD
== END 2018-08-17 14:15 | disposition home or self-care (01) ==
PROVIDERS: Family Provider Family Medicine; PCP Family Medicine; Referring Provider Internal Medicine Cardiovascular Disease; Visit Provider Internal Medicine Cardiovascular Disease
DX: R06.09 Other forms of dyspnea (principal); I34.0 Nonrheumatic mitral (valve) insufficiency; E78.5 Hyperlipidemia, unspecified; Z85.3 Personal history of malignant neoplasm of breast; R06.02 Shortness of breath; Z79.82 Long term (current) use of aspirin
CPT/HCPCS: 36415; 71046; 80048; 85027; 85610; 85730; 93458; J7040; C1769; C1894; Q9967

== ENCOUNTER → 2019-06-21 11:16 | Outpatient (CLI) | payer MEDICARE, OTHER, SELFPAY ==
[2019-06-17 13:10] VITALS: BMI 27.4
[2019-06-21 13:41] LABS: Anion Gap 3 (5-15); BUN 16 mg/dL (7-18); BUN/Creat Ratio 16.8 RATIO (10-20); Calcium,Total 9.8 mg/dL (8.5-10.1); Chloride 109 mmol/L (98-107); Creatinine, Serum 0.95 mg/dL (0.55-1.02); EST Glomerular Filtration Rate 61 mL/min (>60); Est Glom Filt Rate - Afr Amer 74 mL/min (>60); Glucose 90 mg/dL (74-106); Potassium 4.5 mmol/L (3.5-5.1); Sodium Level 143 mmol/L (136-145)
== END ==
PROVIDERS: Family Provider Family Medicine; PCP Internal Medicine; Visit Provider Internal Medicine
DX: I10 Essential (primary) hypertension (principal); N28.9 Disorder of kidney and ureter, unspecified
CPT/HCPCS: 36415; 80048

== ENCOUNTER → 2019-08-13 09:22 | Outpatient (CLI) | payer MEDICARE, OTHER, SELFPAY ==
[2019-08-08 11:16] VITALS: BMI 27.2
[2019-08-13 13:50] LABS: AST(SGOT) 21 U/L (15-37); Alanine Aminotransfer ALT/SGPT 24 U/L (13-56); Albumin, Serum 3.6 g/dL (3.2-5.0); Alkaline Phosphatase 43 U/L (45-117); Bilirubin, Direct 0.13 mg/dL (0.00-0.30); Cholesterol 181 mg/dL (200); Globulin 3.5 g/dL (2.2-4.2); High Density Lipoprotein 69 mg/dL; Protein, Total 7.1 g/dL (6.4-8.2); Triglycerides 82 mg/dL; Very Low Density Lipoprotein 16 mg/dL (5-40)
== END ==
PROVIDERS: PCP Internal Medicine; Referring Provider Internal Medicine Cardiovascular Disease; Visit Provider Internal Medicine Cardiovascular Disease
DX: E78.5 Hyperlipidemia, unspecified (principal)
CPT/HCPCS: 36415; 80061; 80076

== ENCOUNTER → 2020-06-18 13:43 | Outpatient (CLI) | payer MEDICARE, OTHER, SELFPAY ==
[2020-06-18 13:09] VITALS: BMI 27.6
[2020-06-18 15:30] LABS: Absolute Lymphocyte Count 1.15 X10^3/uL (0.83-4.51); Absolute Neutrophil Count 3.3 X10^3/uL (2.0-7.7); Basophil# 0.05 X10^3/uL; Eosinophil# 0.06 X10^3/uL; Eosinophils% 1.2 % (0-5); Hematocrit 42.3 % (37-47); Hemoglobin 13.4 g/dL (12.0-15.0); Lymphocyte # 1.15 X10^3/ul (4.0); Lymphocyte % 23.4 % (19-41); Mean Corp Hgb Conc 31.7 g/dL (32-36); Mean Corpuscular Hgb 29.3 pg (27.0-32.0); Mean Corpuscular Volume 92.4 fL (81-99); Mean Platelet Vol. 10.3 fl (6.2-12.0); Monocyte# 0.35 X10^3/uL; Monocyte% 7.1 % (0-10); NRBC Flagged by Analyzer 0 % (0-5); Neutrophil # 3.29 X10^3/uL (2.7-7.7); Neutrophil % 67.1 % (47-70); Platelet Count 215 K/mm3 (150-450); RBC Distribution Width CV 12.5 % (11.6-14.6); RBC Distribution Width SD 42.5 fl (35.1-43.9); Red Blood Count 4.58 M/mm3 (4.2-5.4); White Blood Count 4.9 K/mm3 (4.4-11.0)
[2020-06-18 16:00] LABS: ALB/GLOB Ratio 0.9 RATIO (0.9-2.4); AST(SGOT) 16 U/L (15-37); Alanine Aminotransfer ALT/SGPT 18 U/L (13-56); Albumin, Serum 3.7 g/dL (3.2-5.0); Alkaline Phosphatase 55 U/L (45-117); Anion Gap 6 (5-15); BUN 16 mg/dL (7-18); BUN/Creat Ratio 9.4 RATIO (10-20); Calcium,Total 9.4 mg/dL (8.5-10.1); Chloride 106 mmol/L (98-107); Creatinine, Serum 1.71 mg/dL (0.55-1.02); EST Glomerular Filtration Rate 31 mL/min (>60); Est Glom Filt Rate - Afr Amer 38 mL/min (>60); Globulin 3.9 g/dL (2.2-4.2); Glucose 94 mg/dL (74-106); Potassium 4.6 mmol/L (3.5-5.1); Protein, Total 7.6 g/dL (6.4-8.2); Sodium Level 141 mmol/L (136-145); T4 Free Direct 1.22 ng/dL (0.76-1.46); Thyroid Stim Hormone (TSH) 1.86 uIU/mL (0.358-3.74)
== END ==
PROVIDERS: PCP Internal Medicine; Referring Provider Internal Medicine; Visit Provider Internal Medicine
DX: L65.9 Nonscarring hair loss, unspecified (principal); R25.1 Tremor, unspecified
CPT/HCPCS: 36415; 80053; 84439; 84443; 85025

== ENCOUNTER → 2020-07-08 08:05 | Outpatient (CLI) | payer MEDICARE, OTHER, SELFPAY ==
[2020-06-18 13:09] VITALS: BMI 27.6
[2020-07-08 13:07] LABS: Anion Gap 3 (5-15); BUN 17 mg/dL (7-18); BUN/Creat Ratio 19.3 RATIO (10-20); Calcium,Total 9.4 mg/dL (8.5-10.1); Chloride 109 mmol/L (98-107); Creatinine, Serum 0.88 mg/dL (0.55-1.02); EST Glomerular Filtration Rate 67 mL/min (>60); Est Glom Filt Rate - Afr Amer 81 mL/min (>60); Glucose 84 mg/dL (74-106); Potassium 4.4 mmol/L (3.5-5.1); Sodium Level 142 mmol/L (136-145)
== END ==
PROVIDERS: PCP Internal Medicine; Referring Provider Internal Medicine; Visit Provider Internal Medicine
DX: I10 Essential (primary) hypertension (principal)
CPT/HCPCS: 36415; 80048

== ENCOUNTER → 2020-12-17 13:48 | Outpatient (CLI) | payer MEDICARE, OTHER, SELFPAY ==
[2020-12-17 13:09] VITALS: BMI 28.3
[2020-12-17 15:13] LABS: ALB/GLOB Ratio 1.1 RATIO (0.9-2.4); AST(SGOT) 22 U/L (15-37); Alanine Aminotransfer ALT/SGPT 21 U/L (13-56); Albumin, Serum 3.7 g/dL (3.2-5.0); Alkaline Phosphatase 50 U/L (45-117); Anion Gap 5 (5-15); BUN 13 mg/dL (7-18); BUN/Creat Ratio 15.5 RATIO (10-20); Calcium,Total 8.9 mg/dL (8.5-10.1); Chloride 109 mmol/L (98-107); Cholesterol 175 mg/dL (200); Creatinine, Serum 0.84 mg/dL (0.55-1.02); EST Glomerular Filtration Rate 70 mL/min (>60); Est Glom Filt Rate - Afr Amer 85 mL/min (>60); Globulin 3.5 g/dL (2.2-4.2); Glucose 90 mg/dL (74-106); High Density Lipoprotein 68 mg/dL; Potassium 4.4 mmol/L (3.5-5.1); Protein, Total 7.2 g/dL (6.4-8.2); Sodium Level 143 mmol/L (136-145); Triglycerides 130 mg/dL; Very Low Density Lipoprotein 26 mg/dL (5-40)
[2020-12-17 17:49] LABS: Vitamin B12 407 pg/mL (211-911)
== END ==
PROVIDERS: PCP Internal Medicine; Referring Provider Internal Medicine; Visit Provider Internal Medicine
DX: G62.9 Polyneuropathy, unspecified (principal); I10 Essential (primary) hypertension; E78.5 Hyperlipidemia, unspecified
CPT/HCPCS: 36415; 80053; 80061; 82607

== ENCOUNTER → 2020-12-29 15:14 | Outpatient (CLI) | payer MEDICARE, OTHER, SELFPAY ==
[2020-12-17 13:09] VITALS: BMI 28.3
--- NOTE | 2020-12-29 15:30 | BD_ITS ---
STUDY: DUAL ENERGY X-RAY ABSORPTIOMETRY / DXA REASON FOR EXAM: Female, 75 years old. Osteopenia TECHNIQUE: Bone Mineral Density (BMD) measurements of lumbar spine and bilateral hips were obtained. COMPARISON: None. FINDINGS: Lumbar Spine (L1-L4): g/cm2 (1.057) / T-score (-1.0) / Z-score (0.7) Findings are suggestive of normal bone density with a low fracture risk. Left Femur Total: g/cm2 (0.933) / T-score (-0.6) / Z-score (1.1) Left Femoral Neck: g/cm2 (0.856) / T-score (-1.3) / Z-score (0.6) Right Femur Total: g/cm2 (0.932) / T-score (-0.6) / Z-score (1.1) Right Femoral Neck: g/cm2 (0.877) / T-score (-1.2) / Z-score (0.7) BD/Dexa Bone Density Study IMPRESSION: The patient is considered osteopenic as outlined below according to World Femi Organization (WHO) criteria with a low fracture risk. Reference Information: The T-score is the number of standard deviations above or below the standard which is normal for young adults at their peak bone mineral density. The World Health Organization (WHO) interprets the T-scores as follows: Above -1 Normal bone density Between -1 and -2.5 Osteopenia Equal to / or below -2.5 Osteoporosis As a practical clinical guideline, osteopenia may be graded as follows: Mild -1 through -1.5 Moderate -1.6 through -2.0 Severe -2.1 through -2.4 The Z-score is the number of standard deviations above or below age-matched controls. A Z-score of less than -1.5 would be considered abnormal. References: 1. NIH Osteoporosis and Related Bone Diseases www osteo.org 2. International Society for Clinical Densitometry www iscd.org 3. National Osteoporosis Foundation www nof.org Electronically Signed: Alexandre Simeon MD at 15:04 EDT , Service support ,
== END ==
PROVIDERS: PCP Internal Medicine; Referring Provider Internal Medicine; Visit Provider Internal Medicine
DX: M85.88 Other specified disorders of bone density and structure, other site (principal)
CPT/HCPCS: 77080

== ENCOUNTER → 2021-02-24 12:58 | Outpatient (CLI) | payer MEDICARE, OTHER, SELFPAY ==
[2020-12-17 13:09] VITALS: BMI 28.3
--- NOTE | 2021-02-24 12:59 | ECHOD_ITS ---
Reason For Study: Mitral Regurg Procedure This was a 2D Doppler, Color Flow transthoracic echocardiogram. Exam performed in department. Left Ventricle Normal LV size. The estimated ejection fraction is 55 %. No evidence for diastolic dysfunction. No regional wall motion abnormalities noted. Right Ventricle Normal RV size. Normal systolic function. Atria Normal left atrium. Normal right atrium. No doppler evidence for ASD. Mitral Valve There is no mitral valve stenosis. Trivial mitral valve insufficiency. Tricuspid Valve There is no tricuspid stenosis. Unable to estimate RV systolic pressure due to insufficient tricuspid regurgitant envelope. Pulmonary artery systolic pressure is 25 mmHg. Aortic Valve Trisinus/trileaflet aortic valve. There is no aortic stenosis. Trivial aortic valve insufficiency. Pulmonic Valve There is no pulmonic valvular stenosis. No pulmonic valve insufficiency. Great Vessels Normal aortic root. Pericardium/Pleural No pericardial effusion. MMode/2D Measurements & Calculations LVIDd: 4.7 cm IVSd: 0.99 cm LA dimension: 3.2 cm LVIDs: 2.7 cm LVPWd: 1.1 cm FS: 42.4 % LAV(MOD-bp): 34.1 ml LA A4 area: 13.8 cm2 RA A4 area: 10.2 cm2 LAV(MOD-bp) Indexed: 17.3 ml/m2 LAV(MOD-sp2): 32.6 ml LAV(MOD-sp4): 33.0 ml Time Measurements MV dec time: 0.28 sec Doppler Measurements & Calculations MV E max lit: 78.9 cm/sec Lat Peak E' Lit: 8.8 cm/sec Med Peak E' Lit: 7.8 cm/sec MV A max lit: 88.3 cm/sec E/E' lat: 8.9 E/E' med: 10.1 MV E/A: 0.89 MV V2 max: 101.6 cm/sec MV P1/2t max lit: 86.1 cm/sec Ao V2 max: 108.1 cm/sec MV max P.1 mmHg MV P1/2t: 87.1 msec Ao max P.7 mmHg MV V2 mean: 50.2 cm/sec MV dec slope: 289.4 cm/sec2 MV mean P.2 mmHg MVA(P1/2t): 2.5 cm2 MV V2 VTI: 34.7 cm LV V1 max: 82.3 cm/sec PA V2 max: 129.0 cm/sec TR max lit: 231.6 cm/sec LV V1 max P.7 mmHg TR max P.5 mmHg ECHO/Echo Complete Interpretation Summary The estimated ejection fraction is 55 %. No evidence for diastolic dysfunction. Trivial mitral valve insufficiency. Trivial aortic valve insufficiency. Ordering Physician: Amado Kaplan Referring Physician: Emilia Muller Performed By: Navin Dobbs RCS
== END ==
PROVIDERS: PCP Internal Medicine; Referring Provider Specialist; Visit Provider Specialist
DX: Z98.890 Other specified postprocedural states (principal)
CPT/HCPCS: 93306

== ENCOUNTER → 2021-03-15 09:27 | Outpatient (CLI) | payer MEDICARE, OTHER, SELFPAY ==
--- NOTE | 2021-03-15 09:29 | US_ITS ---
STUDY: ABDOMINAL ULTRASOUND - RIGHT UPPER QUADRANT REASON FOR VISIT: Female, 75 years old RUQ Pain TECHNIQUE: Ultrasound evaluation of the right upper quadrant was performed with real-time and static dan-scale imaging. TECHNICAL QUALITY: Adequate. COMPARISON: None. FINDINGS: Liver: The liver measures 13.3 cm. There is normal echogenicity of the liver. The bile ducts are within normal limits. There is hepatic color flow. The direction of portal flow is hepatopetal. There is no demonstrated mass lesion. Gallbladder: Normal distended gallbladder. The gallbladder wall measures 1.9 mm. There is a negative sonographic Dowd''s sign. There is no pericholecystic fluid. There are no gallstones. Common Bile Duct (C.B.D.): The common bile duct measures 6.7 mm. Pancreas: Normal size of the head, body and tail of the pancreas. There is normal echogenicity of the pancreas. There is no demonstrated pancreatic mass or cyst. Right Kidney: Normal size of the right kidney. The right kidney measures 11.4 cm x 5.4 cm x 3.7 cm. Normal renal cortex. The right cortex measures 1.0 cm. There is a 6 mm x 5 mm x 5 mm cyst in the inferior lateral aspect of the kidney. There is no right hydronephrosis. US/Abdomen Limited IMPRESSION: Small right renal cyst. Electronically Signed: Alexandre Simeon MD at 13:21 EDT , Service support ,
== END ==
PROVIDERS: PCP Internal Medicine; Referring Provider Internal Medicine; Visit Provider Internal Medicine
DX: R10.11 Right upper quadrant pain (principal)
CPT/HCPCS: 76705

== ENCOUNTER 2021-06-03 11:00 | Outpatient (RCR) | payer MEDICARE, OTHER, SELFPAY ==
--- NOTE | 2021-04-27 10:59 | HP.PTEVAL_ITS ---
Patient's Visit Information FABI MOSES is a 75 year old F referred to Physical Therapy by Dr. Emilia Muller MD with a diagnosis of Bilateral Knee Pain. Date of Evaluation: 04/27/21 Physical Therapist: Esha Light DPT - Visit Plan Frequency: 2x /Week Duration: 4 Weeks Plan: Balance Assessment then 2x a week for 4 weeks to focus on LE and core strength/stabilization with integration of balance as recommended. HEP Given IE: Kitchen Sink: HR/TR, mini squat, SLS, marching, hip abd - Subjective Patient reports that she has balance problems and weakness. She likes to walk but started to only feel comfortable and confident with her . Has had knee pain bilateral for a several years- her right knee is worse than the left. She has had falls but does not feel that they were traumatic to her knees. Her last fall was 5 years ago then she became super careful (fell down a staircase backwards). She now always uses a rail. She reports that she stopped walking regularly this year due to fear of falling and knee pain. She walks less in the winter due to the weather. The pain in her knees is located inside the joint. Describes the pain as sharp- no radiating pain. Best: 0/10 Eases: positional. Agg: positional movements jhonny when sleeping, anything a lot she pays for it. Active the next day she notices more pain. Worst: 5/10. Sleep: disturbed- starts in her side but she ends up on her belly. Sometimes she has light headed ness when she gets up but the balance disturbance is more when she is moving. She has decrease righting reactions- she can't ride a bike anymore. Does not work outside of her home and reports that she is only mildly active. PMHX: tremor, breast cancer (approx 5 years ago) problematic feet and ankles- her feet feel funny but that was from chemo Meds: lipitor, BP meds, proleia. - Objective Posture: FH, RS - can correct but does not maintain. Gait: no deviation noted. Stairs: asc/desc 8 recip with 1 HR. Balance: see FGA. ROM: WFL in all planes. Strength: Core: fair, hip: 4/5 throughout, Knee: 4+/5, Ankle: 5/5. Special Test: sit to stand:12 no UE A. Flex: HS: moderate, Gastroc: moderate. 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 Rehabilitation Potential: Fair - Anticipated Interventions Patient/Client Instruction: Educate patient on: Benefits of Fitness Program Therapeutic Exercise to Include: Strength training, Endurance training, Balance training, Coordination, Agility training, Body mechanics, Postural training, Flexibilty training, Gait and locomotor training, Neuromotor development, via Neurocom Balance Mas, Dynamic Lumbar Stabilization, Scapular Strength/Stabilization For the Purpose of:: To improve muscle performance and motor function Thank you for the opportunity to evaluate your patient. For Medicare and Medicare HMO plans, please review the plan of care and approve it. It will need to be FAXED BACK to us at [phone] for Medicare purposes. For Medicare only, by signing this I certify the plan of care. Please let me know if there are questions or concerns regarding this plan of care. Physician Signature: Date:
--- NOTE | 2021-04-27 11:03 | HP.PTEVAL_ITS ---
Patient's Visit Information FABI MOSES is a 75 year old F referred to Physical Therapy by Dr. Emilia Muller MD with a diagnosis of Bilateral Knee Pain. Date of Evaluation: 04/27/21 Physical Therapist: Esha Light DPT - Visit Plan Frequency: 2x /Week Duration: 4 Weeks Plan: Balance Assessment then 2x a week for 4 weeks to focus on LE and core strength/stabilization with integration of balance as recommended. HEP Given IE: Kitchen Sink: HR/TR, mini squat, SLS, marching, hip abd - Subjective Patient reports that she has balance problems and weakness. She likes to walk but started to only feel comfortable and confident with her . Has had knee pain bilateral for a several years- her right knee is worse than the left. She has had falls but does not feel that they were traumatic to her knees. Her last fall was 5 years ago then she became super careful (fell down a staircase backwards). She now always uses a rail. She reports that she stopped walking regularly this year due to fear of falling and knee pain. She walks less in the winter due to the weather. The pain in her knees is located inside the joint. Describes the pain as sharp- no radiating pain. Best: 0/10 Eases: positional. Agg: positional movements jhonny when sleeping, anything a lot she pays for it. Active the next day she notices more pain. Worst: 5/10. Sleep: disturbed- starts in her side but she ends up on her belly. Sometimes she has light headed ness when she gets up but the balance disturbance is more when she is moving. She has decrease righting reactions- she can't ride a bike anymore. Does not work outside of her home and reports that she is only mildly active. PMHX: tremor, breast cancer (approx 5 years ago) problematic feet and ankles- her feet feel funny but that was from chemo Meds: lipitor, BP meds, proleia. - Objective Posture: FH, RS - can correct but does not maintain. Gait: no deviation noted. Stairs: asc/desc 8 recip with 1 HR. Balance: see FGA. ROM: WFL in all planes. Strength: Core: fair, hip: 4/5 throughout, Knee: 4+/5, Ankle: 5/5. Special Test: sit to stand:12 no UE A. Flex: HS: moderate, Gastroc: moderate. 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 Rehabilitation Potential: Fair - Anticipated Interventions Patient/Client Instruction: Educate patient on: Benefits of Fitness Program Therapeutic Exercise to Include: Strength training, Endurance training, Balance training, Coordination, Agility training, Body mechanics, Postural training, Flexibilty training, Gait and locomotor training, Neuromotor development, via Neurocom Balance Mas, Dynamic Lumbar Stabilization, Scapular Strength/Stabilization For the Purpose of:: To improve muscle performance and motor function Thank you for the opportunity to evaluate your patient. For Medicare and Medicare HMO plans, please review the plan of care and approve it. It will need to be FAXED BACK to us at [phone] for Medicare purposes. For Medicare only, by signing this I certify the plan of care. Please let me know if there are questions or concerns regarding this plan of care. Physician Signature: Date:
--- NOTE | 2021-06-03 11:42 | HP.PTDCSUM_ITS ---
It has been my pleasure to treat FABI MOSES referred by Dr. Emilia Muller MD, with the diagnosis of Bilateral Knee Pain for a total of 10 visit(s). Discharge Date: Please see the following information for a summary of their discharge status. Subjective: Patient reports that she has less pain with knees and ankles. As long as she keeps doing her exercises and riding the bike. She is unsure if she has noticed a change in her balance its more sporadic. She feels that her bilat knees Pain Intensity (Out of 10): 0 % Improvement: 100 Objective/Function: Posture: FH, RS - can correct but does not maintain. Gait: no deviation noted. Stairs: asc/desc 8 recip with 1 HR. Balance: see FGA. ROM: WFL in all planes. Strength: Core: fair, hip: 4/5 throughout, Knee: 5/5, Ankle: 5/5. Special Test: sit to stand:12 no UE A. Flex: HS: moderate, Gastroc: moderate. 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 Plan: Discharge to home exercise program- printed from previous session. No questions If there are questions or concerns regarding this patient's physical therapy, please feel free to call me at [phone]. Thank you for the referral of this patient. Sincerely, Esha Light, VIRAJT Balance/Gait/Functional tests - Balance/Special Test Scores Functional Gait Assessment Score: 24 % Disability: 20.0000 Lower Extremity Functional Score: 56 30 Second Chair Rise Test Seconds: 12
== END 2021-06-03 12:48 | disposition home or self-care (01) ==
LOC: PT 11:00
PROVIDERS: PCP Internal Medicine; Referring Provider Internal Medicine; Visit Provider Internal Medicine
DX: M25.561 Pain in right knee (principal); M25.562 Pain in left knee
CPT/HCPCS: 97110; 97162; 97164; 97750

== ENCOUNTER → 2021-06-04 12:25 | Outpatient (CLI) | payer MEDICARE, OTHER, SELFPAY ==
--- NOTE | 2021-06-04 12:26 | MRI_ITS ---
STUDY: MR MRCP WITHOUT CONTRAST REASON FOR EXAM: Female, 75 years old. choledochocoel TECHNIQUE: Standard MRCP technique was utilized. COMPARISON: Right upper quadrant ultrasound dated 03/15/2021 FINDINGS: Gall Bladder: Normal with no distention or demonstrated fixed intraluminal filling defect. No evidence of choledochocele. Cystic duct: Normal with no demonstrated fixed filling defect. Intrahepatic ducts: Normal visualized intrahepatic ducts with no demonstrated fixed filling defect, dilation or stricture. Common hepatic duct: Normal with no demonstrated fixed filling defect, dilation or stricture. Common bile duct: Normal with no demonstrated fixed filling defect, dilation or stricture. Pancreatic duct: Normal with no demonstrated fixed filling defect, dilation or stricture. Unremarkable gas of the liver, spleen, pancreas, adrenal glands and kidneys. Unremarkable stomach and visualized small and large bowel. MRI/MRCP Abdomen without Contrast IMPRESSION: Normal MR Cholangiopancreatography (MRCP). No evidence of choledochocele. No acute findings. No evidence of cholelithiasis Electronically Signed: Kevin Reyes DO at 2:39 EST Tel , Service support ,
== END ==
PROVIDERS: PCP Internal Medicine; Referring Provider Internal Medicine Gastroenterology; Visit Provider Internal Medicine Gastroenterology
DX: Q44.5 Other congenital malformations of bile ducts (principal)
CPT/HCPCS: 74181

== ENCOUNTER → 2021-06-17 14:13 | Outpatient (CLI) | payer MEDICARE, OTHER, SELFPAY ==
[2021-06-17 15:22] LABS: Anion Gap 4 (5-15); BUN 16 mg/dL (7-18); BUN/Creat Ratio 18.7 RATIO (10-20); Calcium,Total 9.9 mg/dL (8.5-10.1); Chloride 109 mmol/L (98-107); Creatinine, Serum 0.86 mg/dL (0.55-1.02); EST Glomerular Filtration Rate 69 mL/min (>60); Est Glom Filt Rate - Afr Amer 83 mL/min (>60); Glucose 95 mg/dL (74-106); Magnesium 2.5 mg/dL (1.6-2.6); Potassium 4.6 mmol/L (3.5-5.1); Sodium Level 142 mmol/L (136-145)
== END ==
PROVIDERS: PCP Internal Medicine; Visit Provider Internal Medicine
DX: I48.91 Unspecified atrial fibrillation (principal)
CPT/HCPCS: 36415; 80048; 83735

== ENCOUNTER → 2021-07-01 10:47 | Outpatient (CLI) | payer MEDICARE, OTHER, SELFPAY ==
--- NOTE | 2021-07-01 10:49 | BI_ITS ---
MAMMOGRAPHY - BILATERAL SCREENING 3-D TOMOSYNTHESIS REASON FOR EXAM: Female, 75 years old. screening for breast cancer PERTINENT HISTORY: No significant family history. TECHNIQUE: 2-D mammograms and 3-D Tomosynthesis of the breast (s) were performed. CAD was performed. COMPARISON: 06/30/2020 FINDINGS: The breast composition is heterogeneously dense that can obscure small breast masses. Scattered benign calcifications are seen. No dense spiculated masses or suspicious microcalcifications are identified. No architectural distortion is identified. There is no skin thickening or retraction. There has been no significant change since the prior study. BI/SCRN MAMM (CAD)W/IVONNE BILAT IMPRESSION: No mammographic signs of malignancy. Routine yearly mammograms recommended. ASSESSMENT CATEGORY: BIRADS Category 1: Negative. A letter regarding these results will be sent to the patient by the facility within 30 days. FOLLOW UP RECOMMENDATION: Yearly follow up mammogram recommended. (A) Approximately 10% of breast cancers are not detected by mammography. A normal mammogram should not delay biopsy of a clinically suspicious abnormality. Electronically Signed: Rishabh Ramos MD at 12:10 EST Tel , Service support ,
== END ==
PROVIDERS: PCP Internal Medicine; Referring Provider Nurse Practitioner Women's Health; Visit Provider Nurse Practitioner Women's Health
DX: Z12.31 Encounter for screening mammogram for malignant neoplasm of breast (principal); Z85.3 Personal history of malignant neoplasm of breast
CPT/HCPCS: 77063; 77067

== ENCOUNTER → 2022-03-25 | Outpatient (CLI) | payer MEDICARE, OTHER, SELFPAY ==
[2022-03-25 16:41] LABS: Absolute Lymphocyte Count 1.16 X10^3/uL (0.83-4.51); Absolute Neutrophil Count 3.4 X10^3/uL (2.0-7.7); Basophil# 0.04 X10^3/uL; Basophil% 0.8 % (0-1); Eosinophil# 0.15 X10^3/uL; Eosinophils% 2.9 % (0-5); Hematocrit 41.5 % (37-47); Hemoglobin 13.5 g/dL (12.0-15.0); Lymphocyte # 1.16 X10^3/ul (0.83-4.51); Lymphocyte % 22.7 % (19-41); Mean Corp Hgb Conc 32.5 g/dL (32-36); Mean Corpuscular Hgb 30.1 pg (27.0-32.0); Mean Corpuscular Volume 92.4 fL (81-99); Mean Platelet Vol. 10.5 fl (6.2-12.0); Monocyte# 0.33 X10^3/uL; Monocyte% 6.5 % (0-10); NRBC Flagged by Analyzer 0 % (0-5); Neutrophil # 3.42 X10^3/uL (2.7-7.7); Neutrophil % 66.9 % (47-70); Platelet Count 204 K/mm3 (150-450); RBC Distribution Width CV 13.2 % (11.6-14.6); RBC Distribution Width SD 44.9 fl (35.1-43.9); Red Blood Count 4.49 M/mm3 (4.2-5.4); White Blood Count 5.1 K/mm3 (4.4-11.0)
[2022-03-25 16:57] LABS: Vitamin D,25 Hydroxy 41.9 ng/mL
[2022-03-25 16:58] LABS: Anion Gap 5 (5-15); BUN 17 mg/dL (7-18); BUN/Creat Ratio 16.7 RATIO (10-20); Calcium,Total 9.8 mg/dL (8.5-10.1); Chloride 108 mmol/L (98-107); Cholesterol 167 mg/dL (200); Creatinine, Serum 1.02 mg/dL (0.55-1.02); EST Glomerular Filtration Rate 56 mL/min (>60); Est Glom Filt Rate - Afr Amer 68 mL/min (>60); Glucose 114 mg/dL (74-106); High Density Lipoprotein 66 mg/dL; Potassium 4.4 mmol/L (3.5-5.1); Sodium Level 143 mmol/L (136-145); Triglycerides 190 mg/dL; Very Low Density Lipoprotein 38 mg/dL (5-40)
== END | disposition home or self-care (01) ==
LOC: BIMLAB 14:39
PROVIDERS: PCP Internal Medicine; Referring Provider Internal Medicine; Visit Provider Internal Medicine
DX: M85.88 Other specified disorders of bone density and structure, other site (principal); I10 Essential (primary) hypertension; E78.5 Hyperlipidemia, unspecified
CPT/HCPCS: 36415; 80048; 80061; 82306; 85025

== ENCOUNTER → 2022-07-05 | Outpatient (CLI) | payer MEDICARE, OTHER, SELFPAY ==
--- NOTE | 2022-07-05 10:34 | BI_ITS ---
MAMMOGRAPHY - BILATERAL SCREENING REASON FOR EXAM: Female, 76 years old. Routine annual screening examination. PERTINENT HISTORY: Personal history of breast cancer. Prior right lumpectomy with radiation and chemotherapy. Remote bilateral breast biopsies. TECHNIQUE: Digital bilateral breast ivonne (3D mammographic acquisition) in the CC and MLO projections. 2-D mediolateral oblique (MLO) and craniocaudad (CC) views of both breasts were obtained. CAD: Full Field Digital Mammography with Computer Added Detection was performed. COMPARISON: Comparison is made with prior study dated 07/01/2021 and 05/19/2015. FINDINGS: Breast Composition: The breasts are heterogeneously dense, which may obscure small masses. There are no dominant masses or suspicious calcifications. Stable calcified nodules in the right breast. A tissue clip marker is seen within the deep slightly medial aspect of the left breast. No other significant abnormalities are identified. There has been no significant change since the prior study. BI/SCRN MAMM (CAD)W/IVONNE BILAT IMPRESSION: Stable bilateral screening mammogram. Yearly follow-up mammogram recommended. (A) ASSESSMENT CATEGORY: BIRADS Category 2: Benign. A letter regarding these results will be sent to the patient by the facility within 30 days. Approximately 10% of breast cancers are not detected by mammography. A normal mammogram should not delay biopsy of a clinically suspicious abnormality. [id number] Electronically Signed: Alexandre Simeon MD at 12:59 EST ,
== END | disposition home or self-care (01) ==
LOC: OPBI 10:32
PROVIDERS: PCP Internal Medicine; Visit Provider Internal Medicine Medical Oncology
DX: Z12.31 Encounter for screening mammogram for malignant neoplasm of breast (principal)
CPT/HCPCS: 77063; 77067

== ENCOUNTER → 2022-11-25 | Outpatient (CLI) | payer MEDICARE, OTHER, SELFPAY ==
[2022-11-25 17:37] LABS: Absolute Lymphocyte Count 1.58 X10^3/uL (0.83-4.51); Absolute Neutrophil Count 2.9 X10^3/uL (2.0-7.7); Basophil# 0.06 X10^3/uL; Basophil% 1.2 % (0-1); Eosinophil# 0.09 X10^3/uL; Eosinophils% 1.8 % (0-5); Hematocrit 43.3 % (37-47); Hemoglobin 13.7 g/dL (12.0-15.0); Lymphocyte # 1.58 X10^3/ul (0.83-4.51); Lymphocyte % 31.1 % (19-41); Mean Corp Hgb Conc 31.6 g/dL (32-36); Mean Corpuscular Hgb 28.7 pg (27.0-32.0); Mean Corpuscular Volume 90.6 fL (81-99); Mean Platelet Vol. 9.8 fl (6.2-12.0); Monocyte% 7.9 % (0-10); NRBC Flagged by Analyzer 0 % (0-5); Neutrophil # 2.94 X10^3/uL (2.7-7.7); Neutrophil % 57.8 % (47-70); Platelet Count 235 K/mm3 (150-450); RBC Distribution Width SD 42.9 fl (35.1-43.9); Red Blood Count 4.78 M/mm3 (4.2-5.4); White Blood Count 5.1 K/mm3 (4.4-11.0)
[2022-11-25 17:40] LABS: Erythrocyte Sedimentation Rate 5 mm/hr (0-30)
[2022-11-25 18:05] LABS: CRP < 2.90 mg/L (0.0-3.0)
== END | disposition home or self-care (01) ==
LOC: MTLAB 15:01
PROVIDERS: PCP Internal Medicine; Referring Provider Ophthalmology; Visit Provider Ophthalmology
DX: R51.9 Headache, unspecified (principal)
CPT/HCPCS: 36415; 85025; 85652; 86140

== ENCOUNTER → 2023-01-19 | Outpatient (CLI) | payer MEDICARE, OTHER, SELFPAY ==
--- NOTE | 2023-01-19 13:22 | BD_ITS ---
STUDY: DUAL ENERGY X-RAY ABSORPTIOMETRY / DXA REASON FOR EXAM: Female, 77 years old. SCREENING TECHNIQUE: Bone Mineral Density (BMD) measurements of lumbar spine and bilateral hips were obtained. COMPARISON: Comparison is made with prior study dated December 29, 2020. FINDINGS: Lumbar Spine (L1-L4): g/cm2 (0.858) / T-score (-1.7) / Z-score (0.8) Findings are suggestive of osteopenia with a moderate fracture risk. Left Femur Total: g/cm2 (0.865) / T-score (-0.6) / Z-score (1.2) Left Femoral Neck: g/cm2 (0.711) / T-score (-1.2) / Z-score (0.9) Right Femur Total: g/cm2 (0.848) / T-score (-0.8) / Z-score (1.1) Right Femoral Neck: g/cm2 (0.756) / T-score (-0.8) / Z-score (1.3) The T-Scores on the most recent prior examination were: Lumbar Spine (L1-L4): There has been worsening of bone density since the previous examination. Left Femur Total: which represents a worsening of 0.4%. Right Femur Total: which represents a worsening of 2.4%. BD/Dexa Bone Density Study IMPRESSION: The patient is considered osteopenic as outlined below according to World Femi Organization (WHO) criteria with a moderate fracture risk. There has been worsening of bone density since the previous examination. Reference Information: The T-score is the number of standard deviations above or below the standard which is normal for young adults at their peak bone mineral density. The World Health Organization (WHO) interprets the T-scores as follows: Above -1 Normal bone density Between -1 and -2.5 Osteopenia Equal to / or below -2.5 Osteoporosis As a practical clinical guideline, osteopenia may be graded as follows: Mild -1 through -1.5 Moderate -1.6 through -2.0 Severe -2.1 through -2.4 The Z-score is the number of standard deviations above or below age-matched controls. A Z-score of less than -1.5 would be considered abnormal. References: 1. NIH Osteoporosis and Related Bone Diseases www osteo.org 2. International Society for Clinical Densitometry www iscd.org 3. National Osteoporosis Foundation www nof.org Electronically Signed: Alexandre Simeon MD at 11:12 EDT ,
== END | disposition home or self-care (01) ==
LOC: OPBD 13:17
PROVIDERS: PCP Internal Medicine; Referring Provider Internal Medicine Medical Oncology; Visit Provider Internal Medicine Medical Oncology
DX: M85.88 Other specified disorders of bone density and structure, other site (principal); Z13.820 Encounter for screening for osteoporosis
CPT/HCPCS: 77080

== ENCOUNTER → 2023-03-29 | Outpatient (CLI) | payer MEDICARE, OTHER, SELFPAY ==
[2023-03-29 16:55] LABS: Anion Gap 3 (5-15); BUN 15 mg/dL (7-18); BUN/Creat Ratio 16.3 RATIO (10-20); Calcium,Total 9.8 mg/dL (8.5-10.1); Chloride 108 mmol/L (98-107); Creatinine, Serum 0.92 mg/dL (0.55-1.02); EST Glomerular Filtration Rate 63 mL/min (>60); Est Glom Filt Rate - Afr Amer 76 mL/min (>60); Glucose 101 mg/dL (74-106); Potassium 4.6 mmol/L (3.5-5.1); Sodium Level 142 mmol/L (136-145)
== END | disposition home or self-care (01) ==
LOC: BIMLAB 15:41
PROVIDERS: PCP Internal Medicine; Referring Provider Internal Medicine; Visit Provider Internal Medicine
DX: I10 Essential (primary) hypertension (principal)
CPT/HCPCS: 36415; 80048

== ENCOUNTER → 2023-07-24 | Outpatient (CLI) | payer MEDICARE, OTHER, SELFPAY ==
--- NOTE | 2023-07-24 14:20 | BI_ITS ---
MAMMOGRAPHY - BILATERAL SCREENING REASON FOR EXAM: Female, 77 years old. Routine annual screening examination. PERTINENT HISTORY: Personal history of breast cancer. Prior right lumpectomy with radiation and chemotherapy. Remote right excisional breast biopsy and left stereotactic breast biopsy. TECHNIQUE: Digital bilateral breast ivonne (3D mammographic acquisition) in the CC and MLO projections. 2-D mediolateral oblique (MLO) and craniocaudad (CC) views of both breasts were obtained. CAD: Full Field Digital Mammography with Computer Added Detection was performed. COMPARISON: Comparison is made with prior study dated July 05, 2022 and July 01, 2021. FINDINGS: Breast Composition: The breasts are extremely dense, which lowers the sensitivity of mammography. There are no dominant masses or suspicious calcifications. Stable calcified nodules in the upper lateral aspect of the right breast. A tissue clip marker is seen within the deep slightly medial aspect of the left breast. No other significant abnormalities are identified. There has been no significant change since the prior study. BI/SCRN MAMM (CAD)W/IVONNE BILAT IMPRESSION: Stable bilateral screening mammogram. Yearly follow-up mammogram recommended. (A) ASSESSMENT CATEGORY: BIRADS Category 2: Benign. A letter regarding these results will be sent to the patient by the facility within 30 days. Approximately 10% of breast cancers are not detected by mammography. A normal mammogram should not delay biopsy of a clinically suspicious abnormality. [id number] Electronically Signed: Alexandre Simeon MD at 15:31 EST ,
--- OUTSIDE RECORDS SUMMARY | 2023-07-24 14:42 | XMS RPT_ITS | CCD ---
Author Name Unknown Address [address] [place] [address] Organization [facility] Results Test Name Value Interpretation Reference Range Facil ity Summary Purpose Family History No Family History Records Found Advance Directives No Advanced Directives Records Found Additional Source Comments INFORMATION SOURCE (unrecogn ized section and content) FOR RECORDS PERTAINING TO PATIENTS WHO ARE OR HAVE BEEN ENROLLED IN A CHEMICAL DEPENDENCY/SUBSTANCEABUSE PROGRAM, SOME INFORMATION MAY BE OMITTED. This clinical summary was aggregated from multiple sources. Caution should be exercised in using it in the provision of clinical care. This summary normalizes information from multiple sources, and as a consequence, information in this document may materially change the coding, format and clinical context of patient data. In addition, data may be omitted in some cases. CLINICAL DECISIONS SHOULD BE BASED ON THE PRIMARY CLINICAL RECORDS. [employer] provides no warranty or guarantee of the accuracy or completeness of information in this document.
== END | disposition home or self-care (01) ==
LOC: OPBI 14:20
PROVIDERS: PCP Internal Medicine; Referring Provider Internal Medicine; Visit Provider Internal Medicine
DX: Z12.31 Encounter for screening mammogram for malignant neoplasm of breast (principal); Z85.3 Personal history of malignant neoplasm of breast
CPT/HCPCS: 77063; 77067

== ENCOUNTER → 2023-08-10 | Outpatient (CLI) | payer MEDICARE, OTHER, SELFPAY ==
--- OUTSIDE RECORDS SUMMARY | 2023-08-10 10:49 | XMS RPT_ITS | CCD ---
Author Name Unknown Address [address] [place] [address] Organization [facility] Results Test Name Value Interpretation [...] BE BASED ON THE PRIMARY CLINICAL RECORDS. [employer] provides no warranty or guarantee of the accuracy or completeness of information in this document.
[2023-08-10 12:31] LABS: Absolute Lymphocyte Count 1.15 X10^3/uL (0.83-4.51); Absolute Neutrophil Count 1.6 X10^3/uL (2.0-7.7); Basophil# 0.05 X10^3/uL; Basophil% 1.5 % (0-1); Eosinophil# 0.17 X10^3/uL; Eosinophils% 5.2 % (0-5); Hematocrit 39.5 % (37-47); Hemoglobin 12.4 g/dL (12.0-15.0); Lymphocyte # 1.15 X10^3/ul (0.83-4.51); Lymphocyte % 35.4 % (19-41); Mean Corp Hgb Conc 31.4 g/dL (32-36); Mean Corpuscular Hgb 27.9 pg (27.0-32.0); Mean Platelet Vol. 9.8 fl (6.2-12.0); Monocyte% 9.2 % (0-10); NRBC Flagged by Analyzer 0 % (0-5); Neutrophil # 1.56 X10^3/uL (2.7-7.7); Neutrophil % 48.1 % (47-70); Platelet Count 206 K/mm3 (150-450); RBC Distribution Width CV 12.6 % (11.6-14.6); Red Blood Count 4.44 M/mm3 (4.2-5.4); White Blood Count 3.3 K/mm3 (4.4-11.0)
[2023-08-10 12:44] LABS: AST(SGOT) 18 U/L (15-37); Alanine Aminotransfer ALT/SGPT 19 U/L (13-56); Albumin, Serum 3.5 g/dL (3.2-5.0); Alkaline Phosphatase 57 U/L (45-117); Anion Gap 1 (5-15); BUN 15 mg/dL (7-18); BUN/Creat Ratio 15.5 RATIO (10-20); Calcium,Total 9.5 mg/dL (8.5-10.1); Chloride 109 mmol/L (98-107); Cholesterol 171 mg/dL (200); Creatinine, Serum 0.96 mg/dL (0.55-1.02); EST Glomerular Filtration Rate 60 mL/min (>60); Est Glom Filt Rate - Afr Amer 72 mL/min (>60); Globulin 3.5 g/dL (2.2-4.2); Glucose 92 mg/dL (74-106); High Density Lipoprotein 67 mg/dL; Potassium 4.4 mmol/L (3.5-5.1); Sodium Level 139 mmol/L (136-145); Triglycerides 83 mg/dL; Very Low Density Lipoprotein 17 mg/dL (5-40)
== END | disposition home or self-care (01) ==
LOC: BIMLAB 09:50
PROVIDERS: PCP Internal Medicine; Visit Provider Internal Medicine
DX: I10 Essential (primary) hypertension (principal)
CPT/HCPCS: 36415; 80053; 80061; 85025

== ENCOUNTER → 2024-05-08 | Outpatient (CLI) | payer MEDICARE, OTHER, SELFPAY ==
[2024-05-08 16:49] LABS: Absolute Lymphocyte Count 1.65 X10^3/uL (0.83-4.51); Absolute Neutrophil Count 2.8 X10^3/uL (2.0-7.7); Basophil# 0.06 X10^3/uL; Basophil% 1.2 % (0-1); Eosinophil# 0.12 X10^3/uL; Eosinophils% 2.4 % (0-5); Hematocrit 43.6 % (37-47); Hemoglobin 13.7 g/dL (12.0-15.0); Lymphocyte # 1.65 X10^3/ul (0.83-4.51); Lymphocyte % 32.7 % (19-41); Mean Corp Hgb Conc 31.4 g/dL (32-36); Mean Corpuscular Hgb 28.3 pg (27.0-32.0); Mean Corpuscular Volume 90.1 fL (81-99); Monocyte% 7.9 % (0-10); NRBC Flagged by Analyzer 0 % (0-5); Neutrophil # 2.81 X10^3/uL (2.7-7.7); Neutrophil % 55.6 % (47-70); Platelet Count 221 K/mm3 (150-450); RBC Distribution Width CV 12.8 % (11.6-14.6); RBC Distribution Width SD 42.2 fl (35.1-43.9); Red Blood Count 4.84 M/mm3 (4.2-5.4); White Blood Count 5.1 K/mm3 (4.4-11.0)
[2024-05-08 17:11] LABS: ALB/GLOB Ratio 1.2 RATIO (0.9-2.4); AST(SGOT) 21 U/L (15-37); Alanine Aminotransfer ALT/SGPT 19 U/L (13-56); Albumin, Serum 3.9 g/dL (3.2-5.0); Alkaline Phosphatase 77 U/L (45-117); Anion Gap 5 (5-15); BUN 20 mg/dL (7-18); BUN/Creat Ratio 18.9 RATIO (10-20); Calcium,Total 9.8 mg/dL (8.5-10.1); Chloride 107 mmol/L (98-107); Creatinine, Serum 1.06 mg/dL (0.55-1.02); EST Glomerular Filtration Rate 53 mL/min (>60); Est Glom Filt Rate - Afr Amer 65 mL/min (>60); Globulin 3.3 g/dL (2.2-4.2); Glucose 103 mg/dL (74-106); Potassium 4.4 mmol/L (3.5-5.1); Protein, Total 7.2 g/dL (6.4-8.2); Sodium Level 141 mmol/L (136-145)
[2024-05-08 17:12] LABS: Vitamin D,25 Hydroxy 35.8 ng/mL
== END | disposition home or self-care (01) ==
LOC: BIMLAB 14:31
PROVIDERS: PCP Internal Medicine; Referring Provider Internal Medicine; Visit Provider Internal Medicine
DX: I10 Essential (primary) hypertension (principal); M85.80 Other specified disorders of bone density and structure, unspecified site
CPT/HCPCS: 36415; 80053; 82306; 85025

== ENCOUNTER → 2024-06-06 | Outpatient (CLI) | payer MEDICARE, OTHER, SELFPAY ==
--- NOTE | 2024-06-06 13:58 | CT_ITS ---
EXAM: CT ABDOMEN AND PELVIS WITHOUT INTRAVENOUS CONTRAST CLINICAL INDICATION: Early Satiety TECHNIQUE: Helically acquired images were obtained of the abdomen and pelvis without intravenous contrast. This CT exam was performed using one or more of the following dose reduction techniques: automated exposure control, adjustment of the mA and/or kV according to patient size, and/or use of iterative reconstruction technique. RADIATION DOSE: CTDIvol = 9.43 mGy, DLP = 482.73 mGy-cm. COMPARISON: No prior exam provided, prior report from August 21, 2017 mentioned question of tiny gallstones, diverticulosis, heterogeneous lumbar vertebra and iliac bones and suggested a bone scan. Bone scan report from 2018 mentioned degenerative arthritic change. FINDINGS: LOWER THORAX: There are 2 thin-walled small cysts in the right lung base and one in the medial left lung base. No significant infiltrates or effusions at the lung bases. Partially included heart is normal in size. ABDOMEN: LIVER: Unremarkable. Homogeneous. GALLBLADDER AND BILE DUCTS: Only minimally distended gallbladder without visible stones. No intra- or extrahepatic biliary ductal dilation. PANCREAS: Unremarkable. No focal cystic mass. SPLEEN: Unremarkable. Normal size without focal cystic or solid mass. ADRENALS: Unremarkable. No nodules. KIDNEYS AND URETERS: Unremarkable. Normal renal size and position. No hydronephrosis. STOMACH AND BOWEL: Presumed duodenal diverticulum with some dense material, it predominantly contains gas and measures roughly 4.3 cm x 3.7 cm projecting superiorly from the third part of the duodenum. No obvious inflammatory changes. Mildly prominent fluid and gas in some jejunal loops. Mild gas and stool in the colon. Moderate diverticulosis in the distal descending and sigmoid colon, with some slight pericolonic soft tissue stranding in the proximal-mid sigmoid, possibly minimal acute diverticulitis. The rectum and most of the sigmoid are collapsed. No stomach or bowel distention. PELVIS: APPENDIX: Nonvisualized appendix. No visible pericecal inflammation. BLADDER: Unremarkable. REPRODUCTIVE: Unremarkable as visualized. No mass. ABDOMEN and PELVIS: INTRAPERITONEAL SPACE: Unremarkable. No free air, free fluid or abscess. BONES/JOINTS: Unremarkable. No suspicious lytic or blastic abnormality. SOFT TISSUES: Unremarkable. No discrete abdominal or pelvic wall hernia. VASCULATURE: Unremarkable. Abdominal aorta is non-dilated. LYMPH NODES: Unremarkable. No enlarged lymph nodes. OTHER FINDINGS: Suspected bone hemangioma in L5 and bone hemangioma in L1. No destructive bone lesions. Marked disc space narrowing L5-S1 with mild vacuum discs. No evidence of spinal stenosis. CT/Abdomen/Pelvis without Cont IMPRESSION: 1. The stomach is almost collapsed without visible mass or inflammation. Duodenal diverticulum appears likely incidental. 2. Mildly prominent small bowel, cannot exclude mild enteritis. 3. Moderate diverticulosis of the sigmoid with slight focal pericolonic soft tissue stranding, possibly very mild sigmoid diverticulitis. No free air, free fluid or abscess. 4. Nonvisualized appendix. Electronically Signed: Tabby Crespo MD at 1:58 EST ,
== END | disposition home or self-care (01) ==
LOC: CT 13:58
PROVIDERS: PCP Internal Medicine; Referring Provider Internal Medicine; Visit Provider Internal Medicine
DX: R68.81 Early satiety (principal); K83.8 Other specified diseases of biliary tract
CPT/HCPCS: 74176

== ENCOUNTER → 2024-07-15 | Outpatient (CLI) | payer MEDICARE, OTHER, SELFPAY ==
--- NOTE | 2024-07-15 | VUL_PTH ---
PATIENT: FABI MOSES LOC: [facility] U#:[id number] AGE/SX: 78/F ROOM: RE07/15/[address]: Dr. Janae Garzon DO : 1945 BED: DIS: 07/15/2024 SPEC #: [id number] RECD: 07/15/24 17:00 STATUS: CONSTANTINE GRISELDA #: [id number] LINDA: 07/15/24 00:[address]: Janae Garzon DEPT: SURGICAL PATHOLOGY RECD BY: Corona Pena ENTERED: 07/16/24 07:56 SP TYPE: VULVA BX OTHR DR: Dr. Emilia Muller MD Tissues: Vulva, NOS Procedures: Surgery Specimen Level IV HEADER OPERATION: Vulvar biopsy PRE-OP DIAGNOSIS: Lichen sclerosis TISSUE SUBMITTED: Right vulva MICROSCOPIC DIAGNOSIS Right vulva, biopsy: Squamous mucosa with mild epithelial hyperplasia. Extensive subepithelial elastosis. Acute and chronic inflammation. See comment. 07/17/2024 COMMENT Definite changes consistent with lichen sclerosus are not seen. Case has been reviewed in consultation with Dr. Martinez who concurs with the above diagnosis. IDC:FA MICROSCOPIC DESCRIPTION Slides are reviewed. GROSS DESCRIPTION Received is one container labeled with the patient's name and not further designated. The specimen consists of one irregular fragment of light rai soft tissue that measures 0.2 x 0.2 x 0.1 cm. The specimen is totally submitted in one cassette. 07/16/2024 TC:5 CPT:44046
== END | disposition home or self-care (01) ==
LOC: LABSPEC 17:19
PROVIDERS: PCP Internal Medicine; Visit Provider Obstetrics & Gynecology
DX: N90.0 Mild vulvar dysplasia (principal)

== ENCOUNTER → 2024-07-17 | Outpatient (CLI) | payer MEDICARE, OTHER, SELFPAY ==
--- NOTE | 2024-07-17 13:53 | ECHOD_ITS ---
Reason For Study: A. fib Procedure This was a 2D Doppler, Color Flow transthoracic echocardiogram. Exam performed in department. Left Ventricle Normal LV size. The left ventricular ejection fraction is 60 %. Stage 1 diastolic dysfunction. No regional wall motion abnormalities noted. Right Ventricle Normal RV size. Normal systolic function. Atria Normal left atrium. Normal right atrium. Mitral Valve Normal mitral valve. Tricuspid Valve Normal tricuspid valve. Mild tricuspid valve insufficiency. Pulmonary artery systolic pressure is 32 mmHg. Aortic Valve Trisinus/trileaflet aortic valve. Pulmonic Valve Normal pulmonic valve. Great Vessels Normal aortic root. The pulmonary artery is normal size. Pericardium/Pleural No pericardial effusion. MMode/2D Measurements & Calculations LVIDd: 4.4 cm IVSd: 0.92 cm Ao root diam: 3.2 cm LVIDs: 2.7 cm LVPWd: 0.98 cm RVDd: 3.4 cm FS: 39.1 % LAV(MOD-bp): 35.1 ml LVAd ap4: 25.4 cm2 LVAd ap2: 25.1 cm2 LAV(MOD-bp) Indexed: 17.7 ml/m2 LVLd ap4: 7.1 cm LVLd ap2: 7.3 cm LAV(MOD-sp2): 31.1 ml EDV(MOD-sp4): 76.1 ml EDV(MOD-sp2): 73.0 ml LAV(MOD-sp4): 38.4 ml EDV(sp4-el): 76.8 ml EDV(sp2-el): 72.8 ml LVAs ap4: 13.1 cm2 LVAs ap2: 13.4 cm2 LVLs ap4: 5.9 cm LVLs ap2: 6.2 cm ESV(MOD-sp4): 24.8 ml ESV(MOD-sp2): 24.0 ml ESV(sp4-el): 24.6 ml ESV(sp2-el): 24.8 ml EF(MOD-sp4): 67.4 % EF(MOD-sp2): 67.1 % EF(sp4-el): 68.0 % SV(MOD-sp4): 51.3 ml SV(MOD-sp2): 49.0 ml SV(sp4-el): 52.3 ml SI(MOD-sp4): 25.9 ml/m2 SI(MOD-sp2): 24.7 ml/m2 LA A4 area: 14.8 cm2 LA dimension(2D): 3.5 cm RA A4 area: 11.4 cm2 TAPSE: 2.4 cm Time Measurements MV dec time: 0.16 sec Doppler Measurements & Calculations MV E max lit: 78.7 cm/sec Lat Peak E' Lit: 8.9 cm/sec Med Peak E' Lit: 9.6 cm/sec MV A max lit: 95.2 cm/sec E/E' lat: 8.8 E/E' med: 8.2 MV E/A: 0.83 Ao V2 max: 158.3 cm/sec LV V1 max: 117.6 cm/sec MV dec slope: 478.7 cm/sec2 Ao max P.0 mmHg LV V1 max P.5 mmHg Ao V2 mean: 107.5 cm/sec LV V1 mean P.1 mmHg Ao mean P.4 mmHg LV V1 mean: 82.2 cm/sec Ao V2 VTI: 38.5 cm LV V1 VTI: 29.4 cm AV (velocity ratio): 0.76 PA V2 max: 84.7 cm/sec TR max lit: 269.3 cm/sec TR max P.0 mmHg ECHO/Echo Complete Interpretation Summary The left ventricular ejection fraction is 60 %. Normal LV size. Stage 1 diastolic dysfunction. The global longitudinal strain is normal. The global longitudinal strain = -21 % (normal). Ordering Physician: Yuliana Santoyo Referring Physician: Emilia Muller Performed By: Monica Antony RDCS
== END | disposition home or self-care (01) ==
LOC: CVS 13:53
PROVIDERS: PCP Internal Medicine; Referring Provider Physician Assistant Medical; Visit Provider Physician Assistant Medical
DX: I48.0 Paroxysmal atrial fibrillation (principal); I34.0 Nonrheumatic mitral (valve) insufficiency
CPT/HCPCS: 93306

== ENCOUNTER → 2024-08-02 | Outpatient (CLI) | payer MEDICARE, OTHER, SELFPAY ==
--- NOTE | 2024-08-02 13:10 | BI_ITS ---
PROCEDURE: SCRN MAMM (CAD)W/IVONNE BILAT REASON FOR EXAM: F, Age 78 y/o, personal history of breast cancer. Prior right lumpectomy with radiation and chemotherapy. Aunt with breast cancer. TECHNIQUE: Bilateral screening digital breast tomosynthesis with 2D and 3D images. Computer aided detection. COMPARISON: Prior exam(s) dating back to July 24, 2023.. FINDINGS: The breasts are extremely dense which lowers the sensitivity of mammography. Once again, the patient is status post lumpectomy in the upper-outer quadrant of the right breast with resultant postoperative scarring. A tissue clip marker is seen in the upper slightly medial aspect of the left breast. Stable microcalcifications in the upper-outer quadrant of the right breast. No suspicious masses, areas of developing architectural distortion, or suspicious calcifications. BI/SCRN MAMM (CAD)W/IVONNE BILAT IMPRESSION: BI-RADS 2: BENIGN. RECOMMEND ANNUAL MAMMOGRAPHIC SCREENING. Follow-up code: Routine Follow-up The patient will be notified of the results by letter. Reading Location: [place] [id number]
== END | disposition home or self-care (01) ==
LOC: OPBI 13:08
PROVIDERS: PCP Internal Medicine; Referring Provider Internal Medicine Medical Oncology; Visit Provider Internal Medicine Medical Oncology
DX: Z12.31 Encounter for screening mammogram for malignant neoplasm of breast (principal); Z85.3 Personal history of malignant neoplasm of breast
CPT/HCPCS: 77063; 77067

== ENCOUNTER 2024-11-06 06:39 | Day surgery (SDC) | payer MEDICARE, OTHER, SELFPAY ==
--- NOTE | 2024-11-04 09:57 | PAT.ANESEVAL ---
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 When Was Last Pacemaker Check QUESTION #4 FULL TEXT: You/Your Family Experience fever (hyperthermia) with Anesthesia Last Oral Intake Last Oral intake: Last Oral Intake NPO since Meds taken in AM with sips of water? Meds patient instructed to take am of surgery PONV PONV - nail technician: PONV - nail technician Female Yes 11/04/24 09:33 HX of Motion Sickness No 11/04/24 09:33 HX of N/V After Surgery No 11/04/24 09:33 Non-Smoker Yes 11/04/24 09:33 Duration of Surgery greater No 11/04/24 09:33 than 60 minutes Number of Risk Factors 2 11/04/24 09:33 PONV Score Moderate Risk 11/04/24 09:33 Height & Weight Height & Weight: Anesthesia: Height & Weight Height 5 ft 7 in 09/05/24 13:20 Respiratory Assessment Respiratory Assessment - nail technician: Respiratory Tract Infection Hx - nail technician Hx Respiratory Tract Infection No 11/04/24 09:33 STOP Sleep Apnea STOP Sleep Apnea - nail technician: STOP Sleep Apnea - nail technician Hx Hypertension No 11/04/24 09:33 Hx Sleep Apnea No 11/04/24 09:33 CPAP No 11/04/24 09:33 BIPAP No 11/04/24 09:33 Do you snore loudly (louder No 11/04/24 09:33 than talking or can be heard Do you often feel tired/ No 11/04/24 09:33 fatigued/ sleepy during daytime? Has anyone observed you stop No 11/04/24 09:33 breathing during sleep? STOP Results Negative 11/04/24 09:33 QUESTION #5 FULL TEXT : Do you snore loudly (louder than talking or can be heard through closed doors)? 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 Specify any problems Hx of Preganancy in last 3 No 11/04/24 09:33 Months Nurse Filling Out Transfusion VCHRISTIN 11/04/24 09:33 & Questions: Date: 11/04/24 11/04/24 09:33 Time: 09:34 11/04/24 09:33 Patient unable to answer at this time (ie. confused, unrespo /Reproduction History /Reproductive History - nail technician: /Reproductive Hx- nail technician Hx Now No 11/04/24 09:33 Gestational Age (in weeks): EDC: Hx Hx Para Hx Section SAB No 11/04/24 09:33 [facility] Medical History (Updated 11/04/24 @ 09:33 by Lisa Allan) Wears glasses Cancer Injury of head and neck Essential tremor Syncope Gastric reflux Chronic cough History of edema Normal Holter exam History of echocardiogram Cardiology follow-up encounter PAF (paroxysmal atrial fibrillation) Dermatitis Early satiety Scalp pruritus Swelling of structure of left ear Left-sided face pain Tremor Hearing impaired Common bile duct dilatation RUQ pain Insomnia Neuropathy Unsteadiness on feet Balance disorder Essential hypertension Anxiety Osteopenia Neuropathy Gallstones Cataracts, both eyes Back problem Atrial fibrillation Arthritis Nonrheumatic tricuspid (valve) insufficiency Pulmonic valve insufficiency Nonrheumatic mitral (valve) insufficiency Lichen sclerosus Abnormal echocardiogram Exertional dyspnea Osteopenia History of right breast cancer LLQ pain Psoriasis Hyperlipidemia Screening for malignant neoplasm of colon Personal history of malignant neoplasm of breast 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, estrogen receptor positive Malignant neoplasm of upper-outer quadrant of right female breast Home Medications ?Medication ?Instructions ?Recorded ?Last Taken ?Type calcium ER 600 mg (as carb,cit)-D3 2 tab PO DAILY 01/29/19 Unknown History 12.5 mcg (500 unit) tablet, ext.rel (Citracal-D3 Slow Release) diltiazem HCl 60 mg tablet 60 mg PO DAILY PRN A-FIB 03/25/22 Unknown History losartan 25 mg tablet 12.5 mg (1/2 x 25 mg) PO DAILY #90 10/04/23 Unknown Rx tabs dermotic oil 1 dose topical PRN PRN PSORIASIS 01/03/24 Unknown History fluocinolone 0.025 % topical cream 1 applic topical BID PRN PSORIASIS 06/11/24 Unknown History ketoconazole 2 % shampoo 1 applic topical 2XW 06/11/24 Unknown History aspirin 81 mg tablet,delayed 81 mg PO QDAY 07/15/24 10/31/24 History release fluocinolone acetonide oil 0.01 % 1 drp otic (ear) BID PRN PSORIASIS 08/27/24 Unknown History ear drops metronidazole 0.75 % topical cream 1 applic topical QDAY PRN PSORIASIS 08/27/24 Unknown History zmszmodc-zml-mmurk acid 0.4 1 tab PO QDAY 08/27/24 10/31/24 History mg-lycopene 300 mcg-lutein 250 mcg tablet (Centrum Silver) ondansetron HCl 4 mg tablet 4 mg PO .COMPLEX #5 tabs 08/27/24 Unknown Rx peg 3350-electrolytes 236 240 ml PO Q10M #4,000 mL 08/27/24 Unknown Rx gram-22.74 gram-6.74 gram-5.86 gram solution (Golytely) conjugated estrogens 0.625 mg/gram 0.625 mg vaginal QDAY 09/05/24 Unknown History vaginal cream atorvastatin 10 mg tablet 10 mg PO QHS #90 tabs 10/07/24 Unknown Rx Allergy/AdvReac Type Severity Reaction Status Date / Time No Known Allergies Allergy Verified 11/04/24 09:16 Family History Father Heart disease Thyroid disorder Sister Hypertension Anesthesia complication Autoimmune diabetes Bowel disease Skin cancer Thyroid disorder Aunt Breast cancer Diabetes Uncle Cancer Mother Thyroid disorder Surgical History (Updated 11/04/24 @ 09:33 by Lisa Allan) Hx of surgical procedure S/P Mohs surgery for basal cell carcinoma History of left heart catheterization (08/17/18) History of tonsillectomy History of lumpectomy of right breast (~2014) Social History number of children: 1 current occupational status: unemployed Smoking Status: Never smoker alcohol intake: current alcohol intake frequency: a few times a week Alcohol type: beer and wine substance use type: does not use what type of physical activity do you participate in: none seatbelt use: always do you feel safe at home: Yes 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 Additional pertinent findings: Holter: NSR for 3 days Current Visit Impressions Current Visit Impressions: a history of mitral valve prolapse, mitral valve regurgitation, paroxysmal atrial fibrillation, hyperlipidemia, hypertension, right-sided breast carcinoma in 2005 post lumpectomy followed by chemotherapy and radiation therapy in 2016. Recommendation Anesthesia Recommendation Anesthesia recommendation: OPTIMIZED for anesthesia
--- NOTE | 2024-11-05 07:45 | EGD_PTH ---
PATIENT: FABI MOSES LOC: [facility] U#:[id number] AGE/SX: 79/F ROOM: RE11/06/[address]: Dr. Levi Ortiz DO : 1945 BED: DIS: 11/06/2024 SPEC #: [id number] RECD: 11/06/24 09:39 STATUS: CONSTANTINE GRISELDA #: [id number] LINDA: 11/05/24 07:[address]: Levi Ortiz DEPT: SURGICAL PATHOLOGY RECD BY: Morris Bender ENTERED: 11/06/24 10:40 SP TYPE: EGD BIOPSY BRYANT DR: Dr. Emilia Muller MD Tissues: A - Duodenum, NOS B - Gastric mucous membrane C - Esophagus, NOS D - SPLENIC FLEXURE E - Ileum, NOS F - COLON BIOPSY Procedures: Immunohistochemical Stains Surgery Specimen Level IV HEADER OPERATION: Colonoscopy with biopsy, EGD with biopsy PRE-OP DIAGNOSIS: Abdominal fullness, dysphagia TISSUE SUBMITTED: A- Duodenum biopsy, B- Gastric body biopsy, C- Distal esophagus biopsy, D- Splenic flexure polyp biopsy, E- Terminal ileum biopsy, F- Random colonic biopsy MICROSCOPIC DIAGNOSIS A. Small bowel, duodenum, biopsy: * Small bowel mucosa with no pathologic change B. Stomach, gastric body, biopsy: * Oxyntic mucosa with mild chronic focal active inflammation * The Helicobacter pylori immunostain is negative C. Esophagus, distal, biopsy: * Benign squamous epithelium * Oxyntocardiac type mucosa with mild chronic inflammation, negative for goblet cells D. Colon, splenic flexure, polyp, biopsy: * Tubular adenoma E. Small bowel, terminal ileum, biopsy: * Small bowel mucosa with no pathologic change F. Colon, random, biopsy: * Colonic mucosa with no pathologic change MICROSCOPIC DESCRIPTION Slides are reviewed. GROSS DESCRIPTION A. Received in formalin in a container labeled with the patient's name, date of , and duodenum biopsy are 2 rai-pink fragments of mucosal tissue each measuring 0.4 x 0.2 x 0.2 cm. Submitted in toto in A1. B. Received in formalin in a container labeled with the patient's name, date of , and gastric body biopsy are multiple rai-pink fragments of mucosal tissue measuring 1.3 x 0.7 x 0.2 cm in aggregate. Submitted in toto in B1. C. Received in formalin in a container labeled with the patient's name, date of , and distal esophagus are 3 rai-pink fragments of mucosal tissue ranging from 0.2 x 0.2 x 0.2 cm to 0.3 x 0.3 x 0.3 cm. Submitted in toto in C1. D. Received in formalin in a container labeled with the patient's name, date of , and splenic flexure polyp is a 0.5 x 0.3 x 0.3 cm fragment of rai-pink mucosal tissue. Submitted in toto in D1. E. Received in formalin in a container labeled with the patient's name, date of , and terminal ileum biopsy are 2 rai-pink fragments of mucosal tissue, each measuring 0.4 x 0.3 x 0.2 cm. Submitted in toto in E1. F. Received in formalin in a container labeled with the patient's name, date of , and random colonic biopsy are multiple rai-pink fragments of mucosal tissue measuring 0.8 x 0.5 x 0.3 cm in aggregate. Submitted in toto in F1. [facility] 11-06-2024 CPT:37790k2,99990
[2024-11-06] VITALS (10 sets, daily range): BP systolic 94–136; BP diastolic 61–90; PULSE 66–103; RESP 16; TEMP 36.3–37.3; O2SAT 97–100; BMI 28.9
[2024-11-06] MEDS: Lactated Ringers 1,000 ML 15 ML IV (07:08)
--- NOTE | 2024-11-06 07:27 | PCM.PRE.AN2 ---
ASA Classification* ASA Classification ASA Classification: 3 (history of mitral valve prolapse, mitral valve regurgitation, paroxysmal atrial fibrillation, hyperlipidemia, hypertension, right-sided breast carcinoma in 2005 post lumpectomy followed by chemotherapy and radiation therapy in 2015. Had 14 day monitor in July 2024 which showed no afib. ) Assessment & Plan Anesthesia* Anesthesia Assessment Anesthesia Assessment: Discussed sedation and/or anesthesia options, risks, benefits, and alternatives with patient/parents/legal guardian/POA. Questions invited. The patient/parents/legal guardian/POA seems to understand and agrees to proceed with anesthesia plan. Reviewed the physical assessment, medical history, allergy history and patient home medications list prior to surgery/procedure/anesthetic and documented any changes. Performed airway and anesthesia risk assessments. Anesthesia Type Anesthesia Type: General History Source History Obtained from:: Patient and Chart Anesthesia Focused Assessment* Temperature: 99.1 F Pulse Rate: 66 Blood Pressure: 123/67 Respiratory Rate: 16 Pulse Ox: 100 Oxygen Delivery Method: Room Air Airway Assessment Mouth opens: >3 cm Mallampati Score: II Teeth Condition: Intact Focused Labs Anesthesia Preop lab: CBC WBC 5.3 K/mm3 (4.4-11.0) 09/18/24 12:59 09/18/24 RBC 4.66 M/mm3 (4.2-5.4) 09/18/24 12:59 09/18/24 Hgb 13.5 g/dL (12.0-15.0) 09/18/24 12:59 09/18/24 Hct 41.3 % (37-47) 09/18/24 12:59 09/18/24 Plt Count 204 K/mm3 (150-450) 09/18/24 12:59 09/18/24 CHEMISTRY Potassium 4.0 mmol/L (3.3-5.1) 09/18/24 12:59 09/18/24 Sodium 140 mmol/L (133-145) 09/18/24 12:59 09/18/24 Magnesium 2.3 mg/dL (1.6-2.6) 09/22/21 13:45 09/22/21 Phosphorus 3.0 mg/dL (2.5-4.9) 09/22/21 13:45 09/22/21 BUN 18 mg/dL (4-19) 09/18/24 12:59 09/18/24 Creatinine 0.97 mg/dL (0.70-1.20) 09/18/24 12:59 09/18/24 Glucose 85 mg/dL (70-99) 09/18/24 12:59 09/18/24 TSH 1.86 uIU/mL (0.358-3.74) 06/18/20 13:45 06/18/20 COAG PT 13.9 SECONDS (11.7-14.9) 08/10/18 08:30 08/10/18 Pre-Assessment Diagnosis/Proposed Procedure Planned Operative Procedure(s): COLONOSCOPY, EGD Anesthesia History 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 When Was Last Pacemaker Check QUESTION #4 FULL TEXT: You/Your Family Experience fever (hyperthermia) with Anesthesia Last Oral Intake Last Oral intake: Last Oral Intake NPO since 22:00 11/06/24 07:02 Meds taken in AM with sips of Yes 11/06/24 07:02 water? Meds patient instructed to LOSARTAN 11/06/24 07:02 take am of surgery PONV PONV - dump grounds checker: PONV - dump grounds checker Female Yes 11/04/24 09:33 HX of Motion Sickness No 11/04/24 09:33 HX of N/V After Surgery No 11/04/24 09:33 Non-Smoker Yes 11/04/24 09:33 Duration of Surgery greater No 11/04/24 09:33 than 60 minutes Number of Risk Factors 2 11/04/24 09:33 PONV Score Moderate Risk 11/04/24 09:33 Height & Weight Height & Weight: Anesthesia: Height & Weight Height 5 ft 7 in 11/06/24 07:02 Weight: 83.8 kg 11/06/24 07:02 Body Mass Index (BMI) 28.9 11/06/24 07:02 Respiratory Assessment Respiratory Assessment - dump grounds checker: Respiratory Tract Infection Hx - dump grounds checker Hx Respiratory Tract Infection No 11/04/24 09:33 STOP Sleep Apnea STOP Sleep Apnea - dump grounds checker: STOP Sleep Apnea - dump grounds checker Hx Hypertension No 11/04/24 09:33 Hx Sleep Apnea No 11/04/24 09:33 CPAP No 11/04/24 09:33 BIPAP No 11/04/24 09:33 Do you snore loudly (louder No 11/04/24 09:33 than talking or can be heard Do you often feel tired/ No 11/04/24 09:33 fatigued/ sleepy during daytime? Has anyone observed you stop No 11/04/24 09:33 breathing during sleep? STOP Results Negative 11/04/24 09:33 QUESTION #5 FULL TEXT : Do you snore loudly (louder than talking or can be heard through closed doors)? 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 Specify any problems Hx of Preganancy in last 3 No 11/04/24 09:33 Months Nurse Filling Out Transfusion VCHRISTIN 11/04/24 09:33 & Questions: Date: 11/04/24 11/04/24 09:33 Time: 09:34 11/04/24 09:33 Patient unable to answer at this time (ie. confused, unrespo /Reproduction History /Reproductive History - dump grounds checker: /Reproductive Hx- dump grounds checker Hx Now No 11/04/24 09:33 Gestational Age (in weeks): EDC: Hx Hx Para Hx Section SAB No 11/04/24 09:33 Active Medications Active Medications: Current Medications Generic Name Dose Route Start Last Admin Trade Name Freld PRN Reason Stop Dose Admin Lactated Ringer's 1,000 mls @ 15 mls/hr 11/06/24 07:00 11/06/24 07:08 IV 15 mls/hr .Q48H BREANNA Administration PFSH Medical History (Updated 11/04/24 @ 09:33 by Lisa Allan) Wears glasses Cancer Injury of head and neck Essential tremor Syncope Gastric reflux Chronic cough History of edema Normal Holter exam History of echocardiogram Cardiology follow-up encounter PAF (paroxysmal atrial fibrillation) Dermatitis Early satiety Scalp pruritus Swelling of structure of left ear Left-sided face pain Tremor Hearing impaired Common bile duct dilatation RUQ pain Insomnia Neuropathy Unsteadiness on feet Balance disorder Essential hypertension Anxiety Osteopenia Neuropathy Gallstones Cataracts, both eyes Back problem Atrial fibrillation Arthritis Nonrheumatic tricuspid (valve) insufficiency Pulmonic valve insufficiency Nonrheumatic mitral (valve) insufficiency Lichen sclerosus Abnormal echocardiogram Exertional dyspnea Osteopenia History of right breast cancer LLQ pain Psoriasis Hyperlipidemia Screening for malignant neoplasm of colon Personal history of malignant neoplasm of breast 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, estrogen receptor positive Malignant neoplasm of upper-outer quadrant of right female breast Home Medications ?Medication ?Instructions ?Recorded ?Last Taken ?Type calcium ER 600 mg (as carb,cit)-D3 2 tab PO DAILY 01/29/19 Unknown History 12.5 mcg (500 unit) tablet, ext.rel (Citracal-D3 Slow Release) diltiazem HCl 60 mg tablet 60 mg PO DAILY PRN A-FIB 03/25/22 Unknown History losartan 25 mg tablet 12.5 mg (1/2 x 25 mg) PO DAILY #90 10/04/23 11/06/24 Rx tabs dermotic oil 1 dose topical PRN PRN PSORIASIS 01/03/24 Unknown History fluocinolone 0.025 % topical cream 1 applic topical BID PRN PSORIASIS 06/11/24 Unknown History ketoconazole 2 % shampoo 1 applic topical 2XW 06/11/24 Unknown History aspirin 81 mg tablet,delayed 81 mg PO QDAY 07/15/24 10/31/24 History release fluocinolone acetonide oil 0.01 % 1 drp otic (ear) BID PRN PSORIASIS 08/27/24 Unknown History ear drops metronidazole 0.75 % topical cream 1 applic topical QDAY PRN PSORIASIS 08/27/24 Unknown History hqloxapc-hws-znotc acid 0.4 1 tab PO QDAY 08/27/24 10/31/24 History mg-lycopene 300 mcg-lutein 250 mcg tablet (Centrum Silver) ondansetron HCl 4 mg tablet 4 mg PO .COMPLEX #5 tabs 08/27/24 Unknown Rx peg 3350-electrolytes 236 240 ml PO Q10M #4,000 mL 08/27/24 Unknown Rx gram-22.74 gram-6.74 gram-5.86 gram solution (Golytely) conjugated estrogens 0.625 mg/gram 0.625 mg vaginal QDAY 09/05/24 Unknown History vaginal cream atorvastatin 10 mg tablet 10 mg PO QHS #90 tabs 10/07/24 Unknown Rx Allergy/AdvReac Type Severity Reaction Status Date / Time No Known Allergies Allergy Verified 11/04/24 09:16 Family History Father Heart disease Thyroid disorder Sister Hypertension Anesthesia complication Autoimmune diabetes Bowel disease Skin cancer Thyroid disorder Aunt Breast cancer Diabetes Uncle Cancer Mother Thyroid disorder Surgical History (Updated 11/04/24 @ 09:33 by Lisa Allan) Hx of surgical procedure S/P Mohs surgery for basal cell carcinoma History of left heart catheterization (08/17/18) History of tonsillectomy History of lumpectomy of right breast (~2014) Social History number of children: 1 current occupational status: unemployed Smoking Status: Never smoker alcohol intake: current alcohol intake frequency: a few times a week Alcohol type: beer and wine substance use type: does not use what type of physical activity do you participate in: none seatbelt use: always do you feel safe at home: Yes 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 Physical Exam Const alert, oriented x3 and average body habitus Resp normal respiratory effort, normal air movement and clear to auscultation bilaterally Cardio regular rate, regular rhythm, no murmurs and diaphoretic
--- NOTE | 2024-11-06 07:41 | PCM.HP.STD ---
HPI - General General Date of Admission: 11/06/24 Date of Service: 11/06/24 Chief Complaint: abdominal pain and Dysphagia HPI Narrative FABI MOSES, is a 79 F who presents with abdominal pain, bloating and dysphagia Last seen by Dr. Ortiz June 2021 Patient's MRCP did not show any signs of filling defects. 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 She does not have any abdominal pain at this time. We discussed possibly going on ursodiol therapy. However because of cost I believe that was the reason we did get his started. At this time I do not see a great benefit from the medical therapy. However that may change in the near future. (2) Dyspepsia: Status: Acute Plan - Dr. Levi Ortiz, DO: Her abdominal discomfort is a lot better. She is having a little bit of neuropathy across to her belly. But that is grossly better. We will continue the medication regimens for gastritis. In the future we will treat her for small bacterial overgrowth. CT A&P 06/06/2024 - without contrast GALLBLADDER AND BILE DUCTS: Only minimally distended gallbladder without visible stones. No intra- or extrahepatic biliary ductal dilation. STOMACH AND BOWEL: Presumed duodenal diverticulum with some dense material, it predominantly contains gas and measures roughly 4.3 cm x 3.7 cm projecting superiorly from the third part of the duodenum. No obvious inflammatory changes. Mildly prominent fluid and gas in some jejunal loops. Mild gas and stool in the colon. Moderate diverticulosis in the distal descending and sigmoid colon, with some slight pericolonic soft tissue stranding in the proximal-mid sigmoid, possibly minimal acute diverticulitis. The rectum and most of the sigmoid are collapsed. No stomach or bowel distention. - she c/o abdominal fullness for the past year - denies any change in bowel habits - denies any bleeding - denies any weight loss - denies any N/V - denies any loss of appetite - full sensation does not change with PO intake - does not change with a BM - she typically has a BM daily - sits on toilet for a while - other lee she accumulates a lot of little balls - tries not to strain with BM COLON (Dr. Calderón) many years ago - she reports this was negative - denies any prior EGD- denies any family h/o esophageal, gastric or colon cancer - on occasion she reports she has to pause when she is eating due to dysphagia in the upper esophagus - this has happened with solids and pills - denies any HB PENDING SALE TO [facility] Medical History Wears glasses Cancer Injury of head and neck Essential tremor Syncope Gastric reflux Chronic cough History of edema Normal Holter exam History of echocardiogram Cardiology follow-up encounter PAF (paroxysmal atrial fibrillation) Dermatitis Early satiety Scalp pruritus Swelling of structure of left ear Left-sided face pain Tremor Hearing impaired Common bile duct dilatation RUQ pain Insomnia Neuropathy Unsteadiness on feet Balance disorder Essential hypertension Anxiety Osteopenia Neuropathy Gallstones Cataracts, both eyes Back problem Atrial fibrillation Arthritis Nonrheumatic tricuspid (valve) insufficiency Pulmonic valve insufficiency Nonrheumatic mitral (valve) insufficiency Lichen sclerosus Abnormal echocardiogram Exertional dyspnea Osteopenia History of right breast cancer LLQ pain Psoriasis Hyperlipidemia Screening for malignant neoplasm of colon Personal history of malignant neoplasm of breast 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, estrogen receptor positive Malignant neoplasm of upper-outer quadrant of right female breast Home Medications ?Medication ?Instructions ?Recorded ?Last Taken ?Type calcium ER 600 mg (as carb,cit)-D3 2 tab PO DAILY 01/29/19 Unknown History 12.5 mcg (500 unit) tablet, ext.rel (Citracal-D3 Slow Release) diltiazem HCl 60 mg tablet 60 mg PO DAILY PRN A-FIB 03/25/22 Unknown History losartan 25 mg tablet 12.5 mg (1/2 x 25 mg) PO DAILY #90 10/04/23 11/06/24 Rx tabs dermotic oil 1 dose topical PRN PRN PSORIASIS 01/03/24 Unknown History fluocinolone 0.025 % topical cream 1 applic topical BID PRN PSORIASIS 06/11/24 Unknown History ketoconazole 2 % shampoo 1 applic topical 2XW 06/11/24 Unknown History aspirin 81 mg tablet,delayed 81 mg PO QDAY 07/15/24 10/31/24 History release fluocinolone acetonide oil 0.01 % 1 drp otic (ear) BID PRN PSORIASIS 08/27/24 Unknown History ear drops metronidazole 0.75 % topical cream 1 applic topical QDAY PRN PSORIASIS 08/27/24 Unknown History urzqviol-rqo-orrbn acid 0.4 1 tab PO QDAY 08/27/24 10/31/24 History mg-lycopene 300 mcg-lutein 250 mcg tablet (Centrum Silver) ondansetron HCl 4 mg tablet 4 mg PO .COMPLEX #5 tabs 08/27/24 Unknown Rx peg 3350-electrolytes 236 240 ml PO Q10M #4,000 mL 08/27/24 Unknown Rx gram-22.74 gram-6.74 gram-5.86 gram solution (Golytely) conjugated estrogens 0.625 mg/gram 0.625 mg vaginal QDAY 09/05/24 Unknown History vaginal cream atorvastatin 10 mg tablet 10 mg PO QHS #90 tabs 10/07/24 Unknown Rx Allergy/AdvReac Type Severity Reaction Status Date / Time No Known Allergies Allergy Verified 11/04/24 09:16 Family History Father Heart disease Thyroid disorder Sister Hypertension Anesthesia complication Autoimmune diabetes Bowel disease Skin cancer Thyroid disorder Aunt Breast cancer Diabetes Uncle Cancer Mother Thyroid disorder Surgical History Hx of surgical procedure S/P Mohs surgery for basal cell carcinoma History of left heart catheterization (08/17/18) History of tonsillectomy History of lumpectomy of right breast (~2014) Social History number of children: 1 current occupational status: unemployed Smoking Status: Never smoker alcohol intake: current alcohol intake frequency: a few times a week Alcohol type: beer and wine substance use type: does not use what type of physical activity do you participate in: none seatbelt use: always do you feel safe at home: Yes 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 Constitutional Constitutional: Denies fatigue, fever(s), poor appetite, weight gain or weight loss Gastrointestinal Gastrointestinal: Denies belching, bloating, change in bowel habits, change in stool character, chewing difficulty, coffee ground emesis, constipation, cramping, diarrhea, dyspepsia, dysphagia, early satiety, excessive flatus, fecal incontinence, heartburn, hematemesis, hematochezia, hemorrhoids, loose stools, melena, nausea, odynophagia, rectal bleeding, tenesmus, vomiting or weight changes Vital Signs Vital Signs Vital Signs: 11/06/24 07:02 11/06/24 07:02 11/06/24 07:29 Temperature 99.1 F 99.1 F Temperature Source Temporal Pulse Rate 66 66 Respiratory Rate 16 16 Respiratory Pattern Normal Blood Pressure 123/67 H 123/67 H Blood Pressure Mean 85 Blood Pressure Source Monitor Blood Pressure Position Sitting Blood Pressure Location Left Arm Pulse Ox 100 100 Oxygen Delivery Method Room Air Room Air Weight Weight: 184 lb 11.958 oz Body Mass Index (BMI) 28.9 Physical Exam Const alert, oriented x3, no apparent distress and healthy appearing General Appearance: cooperative GI normal to inspection, nondistended, normoactive bowel sounds, soft to palpation, non-tender and non-distended Percussion: normal to percussion Rectal Exam: deferred Assessment & Plan Assessment/Plan (1) Dysphagia: QUALIFIERS: Dysphagia type: pharyngoesophageal phase Qualified Code(s): R13.14 - Dysphagia, pharyngoesophageal phase (2) Abdominal fullness: (3) Dyspepsia: PLAN: Assessment and Plan Assessment and Plan (1) Abdominal fullness: Status: Acute (2) Dysphagia: Status: Acute Qualifiers: Dysphagia type: pharyngoesophageal phase Qualified Code(s): R13.14 - Dysphagia, pharyngoesophageal phase Medications: New peg 3350-electrolytes 236-22.74-6.74 -5.86 gram (Golytely) until fecal effluent is clear 240 mL PO Q10M 4,000 mL 0RF Janae Ruano NP-Chrystal ondansetron HCl 4 mg orally; take two tablets PO two hours prior to start of bowel prep and one every 4 hours as needed for N/V 5 tabs 0RF Janae Ruano NP-C Changed From clobetasol 0.05% 1 applic topical apply bid X 2 weeks then daily until next appt. Small amount and massage in; 15 grams 2RF To clobetasol 0.05% 1 applic topically apply bid X 2 weeks then daily until next appt. Small amount and massage in; PRN; Josseline Case NP, GATHERING MACHINE FEEDER-C Plan 78y/o female presents for consultation with complaints of abdominal fullness x1 year. PMH is significant for breast cancer. She does c/o infrequent pharyngoesophageal dysphagia. Denies any HB. She denies any weight loss, loss of appetite, pain, N/V or change in bowel habits. CT without contrast completed 06/06/2024 was concerning for possible 4.3 x 3.7cm duodenal diverticulum (not seen on prior imaging 2017) and possible minimal acute proximal mid-sigmoid diverticulitis. She denies any abdominal pain, fevers, night sweats or known history of diverticulitis. She will proceed with bidirectional endoscopies and labs as ordered by Dr. Conn on 09/18/2024. Patient Instructions: High Fiber Diet MiraLax 17g once daily - titrate to symptoms Avoid straining with bowel movements or sitting on the toilet for prolonged periods of time Squatty Potty Colonoscopy and EGD - GoLytely Complete labs as ordered by Dr. Conn If you develop abdominal pain, N/V, weight loss contact office to schedule CT with contrast Plan Details Follow Up: 3 Months
--- NOTE | 2024-11-06 08:36 | PCM.POST.ANE ---
Anesthesia: Postop Eval I Current Vital Signs Temperature: 97.7 F Pulse Rate: 99 Blood Pressure: 94/62 Respiratory Rate: 16 Pulse Ox: 100 Oxygen Delivery Method: Room Air Assessment Airway patent: Yes Spontaneous unlabored respirations: Yes Mental status: Awake and Calm nausea: No Vomiting: No Anesthesia Complication: No Fluid Hydration Crystalloid volume administer (ml): 500 Total IV fluid infused: 500 Progress Note Post-operative progress note: Pt. in A. Fib. Dr. Haynes and Dr. Ortiz aware. Patient has PRN diltiazem with her. Will administer in PACU once awake. Anesthesia document: Postop Eval 1 completed: No
--- NOTE | 2024-11-06 08:40 | OP.CCLET_ITS ---
11/06/2024 Emilia Muller MD [address] [place] [address] [place] [address] Re : Upper GI endoscopy procedure for Barbi Damico Dear Dr. Muller This procedure was performed on Wednesday, November 06, 2024. My impressions and recommendations are as follows: Impressions : - No gross lesions in the entire esophagus. - Z-line irregular, 39 cm from the incisors. Biopsied. - Erythematous mucosa in the gastric body. Biopsied. - Erythematous duodenopathy. Biopsied. Recommendations : - Discharge patient to home. - Resume previous diet. - Continue present medications. - Await pathology results. My findings are described in the full procedure note, which is enclosed. If I can be of further assistance, please feel free to contact me at . Sincerely, Levi Ortiz, 11/06/2024 8:40:02 AM This report has been signed electronically.
--- NOTE | 2024-11-06 08:40 | OP.EGD_ITS ---
Patient Name: Barbi Damico Procedure Date: 11/06/2024 7:51 AM Date of : 1945 Age: 79 Procedure: Upper GI endoscopy Indications: Epigastric abdominal pain, Dysphagia Providers: Levi Ortiz DO Referring MD: Emilia Muller MD Medicines: Monitored Anesthesia Care Patient Profile: This is a 79 year old female. Refer to note in patient chart for documentation of history and physical. Patient has symptoms of chronic abdominal cramping, chronic epigastric abdominal pain, chronic dysphagia, chronic dyspepsia and chronic heartburn. Complications: No immediate complications. Procedure: Pre-Anesthesia Assessment: - Prior to the procedure, a History and Physical was performed, and patient medications and allergies were reviewed. The patient is competent. The risks and benefits of the procedure and the sedation options and risks were discussed with the patient. All questions were answered and informed consent was obtained. Patient identification and proposed procedure were verified by the physician in the pre-procedure area. Mental Status Examination: alert and oriented. Airway Examination: normal oropharyngeal airway and neck mobility. Respiratory Examination: clear to auscultation. CV Examination: normal. Prophylactic Antibiotics: The patient does not require prophylactic antibiotics. Prior Anticoagulants: The patient has taken no anticoagulant or antiplatelet agents except for aspirin. ASA Grade Assessment: II - A patient with mild systemic disease. After reviewing the risks and benefits, the patient was deemed in satisfactory condition to undergo the procedure. The anesthesia plan was to use deep sedation / analgesia. Immediately prior to administration of medications, the patient was re-assessed for adequacy to receive sedatives. The heart rate, respiratory rate, oxygen saturations, blood pressure, adequacy of pulmonary ventilation, and response to care were monitored throughout the procedure. The physical status of the patient was re-assessed after the procedure. After obtaining informed consent, the endoscope was passed under direct vision. Throughout the procedure, the patient's blood pressure, pulse, and oxygen saturations were monitored continuously. The pediatric colonoscope was introduced through the mouth, and advanced to the third part of the duodenum. Small bowel enteroscopy was deemed necessary. The upper GI endoscopy was accomplished without difficulty. The patient tolerated the procedure well. Scope In: 7:57:19 AM Scope Out: 8:04:01 AM Total Procedure Duration Time 0 hours 6 minutes 42 seconds Findings: No gross lesions were noted in the entire esophagus. The Z-line was irregular and was found 39 cm from the incisors. Biopsies were taken with a cold forceps for histology. Verification of patient identification for the specimen was done. Estimated blood loss was minimal. Patchy mildly erythematous mucosa without bleeding was found in the gastric body. Biopsies were taken with a cold forceps for histology. Biopsies were taken with a cold forceps for Helicobacter pylori testing. Verification of patient identification for the specimen was done. Estimated blood loss was minimal. Patchy mildly erythematous mucosa without active bleeding and with no stigmata of bleeding was found in the entire duodenum. Biopsies were taken with a cold forceps for histology. Verification of patient identification for the specimen was done. Estimated blood loss was minimal. Impression: - No gross lesions in the entire esophagus. - Z-line irregular, 39 cm from the incisors. Biopsied. - Erythematous mucosa in the gastric body. Biopsied. - Erythematous duodenopathy. Biopsied. Recommendation: - Discharge patient to home. - Resume previous diet. - Continue present medications. - Await pathology results. Procedure Code(s): --- Professional --- 91575, Small intestinal endoscopy, enteroscopy beyond second portion of duodenum, not including ileum; with biopsy, single or multiple CPT copyright 2021 [employer] [place] [employer] [employer]. All rights reserved. The codes documented in this report are preliminary and upon portfolio mgr review may be revised to meet current compliance requirements. Levi Ortiz DO 11/06/2024 8:40:02 AM This report has been signed electronically. Number of Addenda: 0 Note Initiated On: 11/06/2024 7:51 AM
--- NOTE | 2024-11-06 08:44 | SUR.PHASEI ---
Patient takes home prn dose Diltiazem 60mg orally
--- NOTE | 2024-11-06 08:45 | OP.COLON_ITS ---
Patient Name: Barbi Damico Procedure Date: 11/06/2024 8:04 AM Date of : 1945 Age: 79 Procedure: Colonoscopy Indications: Generalized abdominal pain, Clinically significant diarrhea of unexplained origin Providers: Levi Ortiz DO Referring MD: Emilia Muller MD Medicines: Monitored Anesthesia Care Patient Profile: This is a 79 year old female. Refer to note in patient chart for documentation of history and physical. Patient has symptoms of chronic abdominal cramping, chronic epigastric abdominal pain, chronic dysphagia, chronic dyspepsia and chronic heartburn. Last Colonoscopy: several years ago. Complications: No immediate complications. Procedure: Pre-Anesthesia Assessment: - Prior to the procedure, a History and Physical was performed, and patient medications and allergies were reviewed. The patient is competent. The risks and benefits of the procedure and the sedation options and risks were discussed with the patient. All questions were answered and informed consent was obtained. Patient identification and proposed procedure were verified by the physician in the pre-procedure area. Mental Status Examination: alert and oriented. Airway Examination: normal oropharyngeal airway and neck mobility. Respiratory Examination: clear to auscultation. CV Examination: normal. Prophylactic Antibiotics: The patient does not require prophylactic antibiotics. Prior Anticoagulants: The patient has taken no anticoagulant or antiplatelet agents except for aspirin. ASA Grade Assessment: II - A patient with mild systemic disease. After reviewing the risks and benefits, the patient was deemed in satisfactory condition to undergo the procedure. The anesthesia plan was to use deep sedation / analgesia. Immediately prior to administration of medications, the patient was re-assessed for adequacy to receive sedatives. The heart rate, respiratory rate, oxygen saturations, blood pressure, adequacy of pulmonary ventilation, and response to care were monitored throughout the procedure. The physical status of the patient was re-assessed after the procedure. After I obtained informed consent, the scope was passed under direct vision. Throughout the procedure, the patient's blood pressure, pulse, and oxygen saturations were monitored continuously. The pediatric colonoscope was introduced through the anus and advanced to the terminal ileum. The colonoscopy was performed without difficulty. The patient tolerated the procedure well. The quality of the bowel preparation was adequate. The terminal ileum, ileocecal valve, appendiceal orifice, and rectum were photographed. Scope In: 8:06:09 AM Scope Withdrawal Time 0 hours 11 minutes 21 seconds Scope Out: 8:27:54 AM Total Procedure Duration Time 0 hours 21 minutes 45 seconds Findings: The perianal and digital rectal examinations were normal. Multiple small and large-mouthed diverticula were found in the recto-sigmoid colon, sigmoid colon, descending colon, transverse colon and ascending colon. An area of mildly congested mucosa was found in the sigmoid colon, in the descending colon and in the transverse colon. Biopsies were taken with a cold forceps for histology. Verification of patient identification for the specimen was done. Estimated blood loss was minimal. A 5 mm polyp was found in the splenic flexure. The polyp was sessile. The polyp was removed with a cold biopsy forceps. Resection and retrieval were complete. Verification of patient identification for the specimen was done. Estimated blood loss was minimal. The terminal ileum appeared normal. Biopsies were taken with a cold forceps for histology. Estimated blood loss: none. Impression: - Diverticulosis in the recto-sigmoid colon, in the sigmoid colon, in the descending colon, in the transverse colon and in the ascending colon. - Congested mucosa in the sigmoid colon, in the descending colon and in the transverse colon. Biopsied. - One 5 mm polyp at the splenic flexure, removed with a cold biopsy forceps. Resected and retrieved. - The examined portion of the ileum was normal. Biopsied. Recommendation: - Discharge patient to home. - Resume previous diet. - Continue present medications. - Await pathology results. - Repeat colonoscopy. - Return to GI office. Procedure Code(s): --- Professional --- 27068, Colonoscopy, flexible; with biopsy, single or multiple CPT copyright 2021 [employer]. All rights reserved. The codes documented in this report are preliminary and upon screener perfumer review may be revised to meet current compliance requirements. Levi Ortiz DO 11/06/2024 8:44:53 AM This report has been signed electronically. Number of Addenda: 0 Note Initiated On: 11/06/2024 8:04 AM
--- NOTE | 2024-11-06 08:45 | OP.CCLET_ITS ---
11/06/2024 Emilia Muller MD [address] [place] [address] [place] [address] Re : Colonoscopy procedure for Barbi Damico Dear Dr. Muller This procedure was performed on Wednesday, November 06, 2024. My impressions and recommendations are as follows: Impressions : - Diverticulosis in the recto-sigmoid colon, in the sigmoid colon, in the descending colon, in the transverse colon and in the ascending colon. - Congested mucosa in the sigmoid colon, in the descending colon and in the transverse colon. Biopsied. - One 5 mm polyp at the splenic flexure, removed with a cold biopsy forceps. Resected and retrieved. - The examined portion of the ileum was normal. Biopsied. Recommendations : - Discharge patient to home. - Resume previous diet. - Continue present medications. - Await pathology results. - Repeat colonoscopy. - Return to GI office. My findings are described in the full procedure note, which is enclosed. If I can be of further assistance, please feel free to contact me at . Sincerely, Levi Ortiz, 11/06/2024 8:44:53 AM This report has been signed electronically.
--- NOTE | 2024-11-06 09:14 | POSTOPAN2_ITS ---
Anesthesia Postop Eval I Sum Postop Eval Completion status Anesthesia document: Postop Eval 1 completed: No Anesthesia Postop Eval I Summary Anesthesia Postop Eval I Summary: Anesthesia Postop Eval I: Assessment Summary Airway patent Yes 11/06/24 08:37 PLAY [email or web address] Spontaneous unlabored Yes 11/06/24 08:37 PLAY [email or web address] respirations Mental status Awake,Calm 11/06/24 08:37 PLAY [email or web address] nausea No 11/06/24 08:37 PLAY [email or web address] Vomiting No 11/06/24 08:37 PLAY [email or web address] Anesthesia Postop Eval I: Fluid Summary Crystalloid volume administer 500 11/06/24 08:37 PLAY [email or web address] (ml) Colloids volume administered ( ml) Blood Product volume administered (ml) Total IV fluid infused 500 11/06/24 08:37 PLAY [email or web address] Anesthesia Postop Eval I: Summary Notes Anesthesia Complication No 11/06/24 08:37 PLAY [email or web address] Anesthesia Complication Comment: Post-operative progress note Pt. in [facility] [employer] 11/06/24 08:37 PLAY READER.[email or web address] Haynes and Dr. Ortiz aware. Patient has PRN diltiazem with her . Will administer in PACU once awake . Anesthesia: Postop Eval II Evaluation Mental status: Awake Pain Level: 0 nausea: No Vomiting: No Progress Note Post-operative progress note: Patient found to be in atrial fibrillation post- procedure, but rate controlled. Patient took home diltiazem which she states she takes when she goes into atrial fibrillation. We consulted cardiology, and the finger grip machine operator happens to be part of the group that the patient normally sees for cardiology. The finger grip machine operator reviewed her records and recommended additional dosages of diltiazem later today and tomorrow AM, and the patient will be re- evaluated tomorrow by cardiology to ensure she is no longer in afib. Cardiology has cleared her for discharge from the PACU and they will continue to follow. Complications Anesthesia Complication: No
--- NOTE | 2024-11-06 09:14 | PCM.POSTANE2 ---
Anesthesia Postop Eval I Sum Postop Eval Completion status Anesthesia document: Postop Eval 1 completed: No Anesthesia Postop Eval I Summary Anesthesia Postop Eval I Summary: Anesthesia Postop Eval I: Assessment Summary Airway patent Yes 11/06/24 08:37 [email or web address] [email or web address] Spontaneous unlabored Yes 11/06/24 08:37 CARD [email or web address] respirations Mental status Awake,Calm 11/06/24 08:37 CARD [email or web address] nausea No 11/06/24 08:37 CARD [email or web address] Vomiting No 11/06/24 08:37 CARD [email or web address] Anesthesia Postop Eval I: Fluid Summary Crystalloid volume administer 500 11/06/24 08:37 CARD [email or web address] (ml) Colloids volume administered ( ml) Blood Product volume administered (ml) Total IV fluid infused 500 11/06/24 08:37 CARD [email or web address] Anesthesia Postop Eval I: Summary Notes Anesthesia Complication No 11/06/24 08:37 CARD [email or web address] Anesthesia Complication Comment: Post-operative progress note Pt. in [facility] [employer] 11/06/24 08:37 CARD [email or web address].TREY Haynes and Dr. Ortiz aware. Patient has PRN diltiazem with her . Will administer in PACU once awake . Anesthesia: Postop Eval II Evaluation Mental status: Awake Pain Level: 0 nausea: No Vomiting: No Progress Note Post-operative progress note: Patient found to be in atrial fibrillation post-procedure, but rate controlled. Patient took home diltiazem which she states she takes when she goes into atrial fibrillation. We consulted cardiology, and the senior architectural designer happens to be part of the group that the patient normally sees for cardiology. The senior architectural designer reviewed her records and recommended additional dosages of diltiazem later today and tomorrow AM, and the patient will be re-evaluated tomorrow by cardiology to ensure she is no longer in afib. Cardiology has cleared her for discharge from the PACU and they will continue to follow. Complications Anesthesia Complication: No
== END 2024-11-06 09:45 | disposition home or self-care (01) ==
LOC: EN 06:39 → AC 06:40
PROVIDERS: PCP Internal Medicine; Referring Provider Internal Medicine; Visit Provider Internal Medicine Gastroenterology
PROC: 0DJD8ZZ Inspection of Lower Intestinal Tract, Via Natural or Artificial Opening Endoscopic (ICD-10-PCS; CPT 45378; principal; 2024-11-06 07:40)
DX: D12.3 Benign neoplasm of transverse colon (principal); R10.84 Generalized abdominal pain; K57.30 Diverticulosis of large intestine without perforation or abscess without bleeding; I10 Essential (primary) hypertension; R10.13 Epigastric pain; E78.5 Hyperlipidemia, unspecified; K21.00 Gastro-esophageal reflux disease with esophagitis, without bleeding; Z79.82 Long term (current) use of aspirin; K29.50 Unspecified chronic gastritis without bleeding; Z79.899 Other long term (current) drug therapy
CPT/HCPCS: 45380; 43239; 88305; 88342

== ENCOUNTER → 2024-11-26 | Outpatient (CLI) | payer MEDICARE, OTHER, SELFPAY ==
[2024-11-26 12:49] LABS: Cholesterol 169 mg/dL (<=200); High Density Lipoprotein 61 mg/dL; Low Density Lipoprotein Calc. 86 mg/dL; Triglycerides 110 mg/dL; Very Low Density Lipoprotein 22 mg/dL (5-40); cholesterol:hdl ratio screen 2.78
== END | disposition home or self-care (01) ==
LOC: BIMLAB 09:03
PROVIDERS: PCP Internal Medicine; Referring Provider Internal Medicine; Visit Provider Internal Medicine
DX: E78.5 Hyperlipidemia, unspecified (principal)
CPT/HCPCS: 36415; 80061

== ENCOUNTER → 2024-12-17 | Outpatient (CLI) | payer MEDICARE, OTHER, SELFPAY ==
--- NOTE | 2024-12-17 08:28 | CT_ITS ---
PROCEDURE: ABDOMEN/PELVIS WITH CONTRAST 12/17/2024 REASON FOR EXAM: EPIG FULLNESS, DUODENAL DIVERTIC ON 06/2024 CT TECHNIQUE: ABDOMEN/PELVIS WITH CONTRAST. Coronal and Sagittal reconstruction series were provided. ORAL CONTRAST: Yes CONTRAST: Isovue-300 VOLUME: 92 mL One or more dose reduction techniques were used (e.g., Automated exposure control, adjustment of the mA and/or kV according to patient size, use of iterative reconstruction technique. RADIATION DOSE SUMMARY: CTDlvol: 32.00 mGy DLP: 957.46 mGycm COMPARISON: CT abdomen and pelvis without contrast, 06/06/2024. FINDINGS: Lung bases: There are postinflammatory pneumatoceles in the middle lobe of the right lung and in the lower lobe of both lungs. There are no pleural effusions. The heart size is normal. There is no pericardial effusion. There is no calcific vascular disease of the coronary arteries evident. Liver: Normal. Gallbladder: Normal. Spleen: Normal. Pancreas: Normal. Adrenals: Normal. Kidneys: There is a small partially exophytic cyst from the lower pole of the right kidney. The renal parenchyma is otherwise unremarkable. There is no evidence of nephrolithiasis, ureterolithiasis or hydronephrosis. Bladder: Normal unenhanced appearance. Reproductive Organs: There is mild heterogeneity of the uterus which may indicate fibroids. The ovaries are unremarkable. There is no free fluid in the pelvis. There is no pelvic or inguinal lymphadenopathy. Bowel: There is again noted a diverticulum of the 3rd portion of the duodenum. There is moderate descending colonic and sigmoid diverticulosis without diverticulitis. There is stool throughout the colon. Appendix: The appendix is not identified. Lymph nodes: There is no evidence of mesenteric or retroperitoneal lymphadenopathy. Vasculature: There is minimal calcific vascular disease of the abdominal aorta. The inferior vena cava and portal venous system are unremarkable. Abdominal wall: There are no abdominal wall defects. Bones: There is degenerative disc disease, L5-S1. There are stable lytic areas in multiple vertebral bodies consistent with hemangiomas. CT/Abdomen/Pelvis WITH Contrast IMPRESSION: 1. No evidence of acute abdominal pathology. 2. Benign duodenal diverticulum is again noted. 3. Colonic diverticulosis without diverticulitis. 4. Other findings as noted. Reading Location: [id number]
== END | disposition home or self-care (01) ==
LOC: CT 08:27
PROVIDERS: PCP Internal Medicine; Referring Provider Nurse Practitioner Acute Care; Visit Provider Nurse Practitioner Acute Care
DX: R93.3 Abnormal findings on diagnostic imaging of other parts of digestive tract (principal); R19.8 Other specified symptoms and signs involving the digestive system and abdomen; Z85.3 Personal history of malignant neoplasm of breast
CPT/HCPCS: 74177; Q9967